=== PATIENT | female | born 1965 | race Caucasian/White ===

== ENCOUNTER 2017-06-19 03:01 | Emergency (ER) | payer MEDICARE ==
[2017-06-19] MEDS ORDERED: Ketorolac INJ* 30 MG/ML 1 ML VIAL ONE (04:14)
[2017-06-19 04:38] LABS: ABS Basophils 0.1 10^3/ul (0-0.2); ABS Eosinophils 0.2 10^3/ul (0-0.6); ABS Lymphocytes 1.7 10^3/ul (1.0-4.8); ABS Monocytes 0.8 10^3/ul (0-0.8); ABS Nucleated RBC 0 10^3/ul; Eosinophil % 2.4 % (0-6); Hematocrit 37 % (35-47); Hemoglobin 12.4 g/dl (12.0-16.0); Lymphocyte % 21.8 % (25-47); Mean Corpuscular HGB Conc 34 g/dl (31-36); Mean Corpuscular Hemoglobin 31 pg (27-31); Mean Corpuscular Volume 92 fL (80-97); Mean Platelet Volume 7.4 um3 (7.4-10.4); Nucleated Red Blood Cells % 0; Platelet Count 357 10^3/ul (150-450); Red Blood Count 3.98 10^6/ul (4.0-5.4); Red Cell Distribution Width 13 % (10.5-15); White Blood Count 7.7 10^3/ul (3.5-10.8)
[2017-06-19] MEDS ORDERED: NS 0.9% 1000 ML* 1,000 ML IV ONE (04:45)
[2017-06-19 04:48] LABS: EGFR Non-African American 95.7 (>60)
[2017-06-19] MEDS ORDERED: Morphine VIAL* 4 MG/ML VIAL (1 ml vial) IV ONE (05:00)
[2017-06-19] MEDS ORDERED: Ketorolac INJ* 30 MG/ML 1 ML VIAL IV ONE (05:00)
--- NOTE | 2017-06-19 05:57 | ED ---
Diane Phan Thomas, scribed for Daniel Garcia MD on 06/19/17 at 0514 . Neck Pain - HPI Summary HPI Summary: The patient is a 52 year old female complaining of neck pain for the last two weeks. The patient describes a pressure sensation that radiates from her neck to her head. She says I can hardly move my neck secondary to the pain. The patient has been taking Advil, ibuprofen, and oxycodone for the pain. The patient also complains of photophobia and dizziness. The patient denies vomiting. She has a history of rheumatoid arthritis that was diagnosed 20 years ago. - History of Current Complaint Chief Complaint: EDHeadache Stated Complaint: NECK INJURY Time Seen by Provider: 06/19/17 04:30 Hx Obtained From: Patient Onset/Duration Of Injury/Symptoms: Days Mechanism Of Injury: No Known Trauma Timing: Constant Onset/Duration: Still Present Severity Currently: Moderate Location: Discrete At: - neck Character: Other: - pressure Aggravating Factors: Movement Alleviating Factors: Nothing Associated Signs & Symptoms: Positive: Negative - vomiting - Allergies/Home Medications Allergies/Adverse Reactions: Allergies Allergy/AdvReac Type Severity Reaction Status Date / Time MS Sulfa Antibiotics Allergy Unknown Verified 10/26/15 17:10 [Sulfa Antibiotics] Reaction Details MS Vancomycin [Vancomycin] Allergy Hives Verified 10/26/15 17:10 PMH/Surg Hx/FS Hx/Imm Hx Endocrine/Hematology History: Reports: Hx Systemic Lupus Erythematosus Denies: Hx Diabetes Cardiovascular History: Denies: Hx Congestive Heart Failure, Hx Hypertension, Hx Pacemaker/ICD Respiratory History: Reports: Hx Asthma - mild seasonal GI History: Reports: Other GI Disorders - CROHN'S DISEASE History: Denies: Hx Dialysis, Hx Renal Disease Musculoskeletal History: Reports: Hx Rheumatoid Arthritis, Other Musculoskeletal History - RA Sensory History: Denies: Hx Hearing Aid Neurological History: 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 Psychiatric History: Denies: Hx Panic Disorder - Cancer History Hx Chemotherapy: No - Surgical History Surgery Procedure, Year, and Place: ovarian cyst, lypomia removal, rheumatoid nodule right foot Infectious Disease History: Denies: Traveled Outside the [place] in Last 30 Days - Family History Known Family History: Negative: Blood Disorder - Social History Lives: With Family Alcohol Use: None Substance Use Type: Reports: None Hx Tobacco Use: No Smoking Status (MU): Unknown if Ever Smoked Review of Systems Positive: Photophobia Negative: Vomiting Positive: Other - Neck pain Neurological: Other - Dizziness All Other Systems Reviewed And Are Negative: Yes Physical Exam - Summary Physical Exam Summary: VITAL SIGNS: Reviewed. GENERAL: Patient is a well-developed and female who is lying comfortable in the stretcher. Patient is not in any acute respiratory distress. HEAD AND FACE: No signs of trauma. No ecchymosis, hematomas or skull depressions. No sinus tenderness. EYES: PERRLA, EOMI x 2, No injected conjunctiva, no nystagmus. EARS: Hearing grossly intact. Ear canals and tympanic membranes are within normal limits. MOUTH: Oropharynx within normal limits. NECK: Supple. She has C-spine tenderness to her upper cervical spine. She has decreased range of motion in both directions. Trachea is midline, no adenopathy , no JVD, no carotid bruit. CHEST: Symmetric, no tenderness at palpation LUNGS: Clear to auscultation bilaterally. No wheezing or crackles. CVS: Regular rate and rhythm, S1 and S2 present, no murmurs or gallops appreciated. ABDOMEN: Soft, non-tender. No signs of distention. No rebound no guarding, and no masses palpated. Bowel sounds are normal. EXTREMITIES: FROM in all major joints, no edema, no cyanosis or clubbing. NEURO: Alert and oriented x 3. No acute neurological deficits. Speech is normal and follows commands. SKIN: Dry and warm Triage Information Reviewed: Yes Vital Signs On Initial Exam: Initial Vitals BP 117/70 06/19/17 03:57 Vital Signs Reviewed: Yes Diagnostics - Vital Signs Vital Signs Pulse BP Pulse Ox 06/19/17 04:32 65 98 06/19/17 03:57 117/70 - Laboratory Lab Results: Lab Results 06/19/17 06/19/17 Range/Units 03:55 03:55 WBC 7.7 (3.5-10.8) 10^3/ul RBC 3.98 L (4.0-5.4) 10^6/ul Hgb 12.4 (12.0-16.0) g/dl Hct 37 (35-47) % MCV 92 (80-97) fL MCH 31 (27-31) pg MCHC 34 (31-36) g/dl RDW 13 (10.5-15) % Plt Count 357 (150-450) 10^3/ul MPV 7.4 (7.4-10.4) um3 Neut % (Auto) 64.6 (38-83) % Lymph % (Auto) 21.8 L (25-47) % [place] % (Auto) 10.4 H (0-7) % Eos % (Auto) 2.4 (0-6) % Baso % (Auto) 0.8 (0-2) % Absolute Neuts (auto) 5.0 (1.5-7.7) 10^3/ul Absolute Lymphs (auto) 1.7 (1.0-4.8) 10^3/ul Absolute Monos (auto) 0.8 (0-0.8) 10^3/ul Absolute Eos (auto) 0.2 (0-0.6) 10^3/ul Absolute Basos (auto) 0.1 (0-0.2) 10^3/ul Absolute Nucleated RBC 0 10^3/ul Nucleated RBC % 0 ESR Pending Sodium 141 (139-145) mmol/L Potassium 3.6 (3.5-5.0) mmol/L Chloride 107 (101-111) mmol/L Carbon Dioxide 28 (22-32) mmol/L Anion Gap 6 (2-11) mmol/L BUN 22 (6-24) mg/dL Creatinine 0.65 (0.51-0.95) mg/dL Est GFR ( Amer) 123.1 (>60) Est GFR (Non-Af Amer) 95.7 (>60) BUN/Creatinine Ratio 33.8 H (8-20) Glucose 98 (70-100) mg/dL Calcium 9.2 (8.6-10.3) mg/dL Total Bilirubin 0.30 (0.2-1.0) mg/dL AST 12 L (13-39) U/L ALT 10 (7-52) U/L Alkaline Phosphatase 50 (34-104) U/L C-Reactive Protein 1.56 (< 5.00) mg/L Total Protein 7.1 (6.4-8.9) g/dL Albumin 4.4 (3.2-5.2) g/dL Globulin 2.7 (2-4) g/dL Albumin/Globulin Ratio 1.6 (1-3) Result Diagrams: 06/19/17 03:55 06/19/17 03:55 Lab Statement: Any lab studies that have been ordered have been reviewed, and results considered in the medical decision making process. - CT CT Cervical Spine CT Interpretation: No Acute Changes - Imperssion: The cervical vertebrae are normally aligned. No fracture or destructive bone lesion. Small disc/osteophyte complexes at C5-6 and C6-7. No other appreciable abnormalities of the cervical spine. Dr. Garcia has reviewed this report. CT Interpretation Completed By: Radiologist CT Head CT Interpretation: No Acute Changes - Impression: normal brain. No acute intracranial pathology. No hemorrhage. No visible infarct or mass. Osseous structures are intact. Dr. Garcia has reviewed this report. CT Interpretation Completed By: Radiologist Neck Course/Dx - Course Assessment/Plan: The patient is a 52 year old female complaining of neck pain for the last two weeks. The patient describes a pressure sensation that radiates from her neck to her head. She says I can hardly move my neck secondary to the pain. The patient was given Toradol, morphine, and IV fluids. Bloodwork was obtained. CT Head shows normal brain. No acute intracranial pathology. No hemorrhage. No visible infarct or mass. Osseous structures are intact. CT Neck shows The cervical vertebrae are normally aligned. No fracture or destructive bone lesion. Small disc/osteophyte complexes at C5-6 and C6-7. No other appreciable abnormalities of the cervical spine. The patient has an appointment with her primary care physician today, so she will be discharged home to follow up at that appointment. - Diagnoses Provider Diagnoses: Headache, Neck pain Discharge - Sign-Out/Discharge Documenting (check all that apply): Discharge - Discharge Plan Condition: Stable Disposition: HOME Patient Education Materials: Neck Pain (ED), General Headache (ED) Referrals: Sidney Alonso MD [Primary Care Provider] - 1 Day Additional Instructions: Follow up with your primary care provider at your appointment today. Return to the emergency department for any new or worsening symptoms. The documentation as recorded by the Diane chaney Thomas accurately reflects the service I personally performed and the decisions made by , Daniel Garcia MD.
[2017-06-19 06:14] VITALS: BP 101/70
--- NOTE | 2017-06-19 08:19 | RAD ---
HISTORY: Headache, neck pain COMPARISONS: August 06, 2011 TECHNIQUE: Multiple contiguous axial CT scans were obtained of the head without intravenous contrast. FINDINGS: HEMORRHAGE/INFARCT: There is no hemorrhage or acute infarct. MASSES/SHIFT: There is no mass or shift. EXTRA-AXIAL SPACES: There are no extra-axial fluid collections. SULCI AND VENTRICLES: The sulci and ventricles are normal in size and position for the patient's stated age. CEREBRUM: There are no focal parenchymal abnormalities. BRAINSTEM: There are no focal parenchymal abnormalities. CEREBELLUM: There are no focal parenchymal abnormalities. VESSELS: The vessels are grossly normal. PARANASAL SINUSES: The paranasal sinuses are clear. ORBITS: The orbits are unremarkable. BONES AND SOFT TISSUE: No bone or soft tissue abnormalities are noted. OTHER: None IMPRESSION: NO ACUTE INTRACRANIAL PATHOLOGY.
--- NOTE | 2017-06-19 08:22 | RAD ---
HISTORY: Headache, neck pain COMPARISONS: CT of the neck dated October 26, 2015 TECHNIQUE: Multiple contiguous axial CT scans were obtained of the cervical spine without intravenous contrast, with coronal and sagittal multiplanar reformations. FINDINGS: BRAIN: The visualized brain is unremarkable CENTRAL CANAL: Evaluation of the central canal is limited on CT technique; however, there is no obvious canalicular mass or epidural hemorrhage. ALIGNMENT: The alignment is normal, without subluxation or dislocation. VERTEBRAL BODIES: The odontoid process is intact. The atlantoaxial intervals are symmetric. The vertebral bodies are normal in attenuation, without fracture. There is mild anterolateral marginal osteophyte formation. JOINTS: There is mild uncovertebral hypertrophy most pronounced at C5-C6 and C6-C7. MUSCULATURE: Unremarkable INTERVERTEBRAL DISCS: There is diffuse loss of intervertebral disc height. AXIAL IMAGES: C2-C3: There is no osseous neural foraminal narrowing or central canal stenosis. C3-C4: There is no osseous neural foraminal narrowing or central canal stenosis. C4-C5: There is no osseous neural foraminal narrowing or central canal stenosis. C5-C6: There is no osseous neural foraminal narrowing or central canal stenosis. C6-C7: There is no osseous neural foraminal narrowing or central canal stenosis. C7-T1: There is no osseous neural foraminal narrowing or central canal stenosis. SOFT TISSUES: The thyroid gland is small and somewhat heterogeneous, with a 0.4 cm nodule of the right thyroid.. The prevertebral fat stripe is preserved. OTHER: None. IMPRESSION: MILD DEGENERATIVE DISC DISEASE AND OSTEOARTHRITIS MOST PRONOUNCED AT C5-C6 AND C6-C7. NO OSSEOUS NEURAL FORAMINAL NARROWING OR CENTRAL CANAL STENOSIS.
== END 2017-06-19 06:15 | disposition home or self-care (01) ==
LOC: ED 03:01
DX: R51 Headache (principal); M54.2 Cervicalgia; H53.149 Visual discomfort, unspecified; R42 Dizziness and giddiness
CPT/HCPCS: 36415; 70450; 72125; 80053; 85025; 85652; 86140; 96374; 96375; 99282; J1885

== ENCOUNTER 2017-07-20 23:08 | Emergency (ER) | payer MEDICARE ==
[2017-07-20] MEDS ORDERED: Famotidine TAB* 20 MG PO ONE (23:42)
[2017-07-20] MEDS ORDERED: predniSONE TAB* 20 MG PO ONE (23:42)
[2017-07-20] MEDS ORDERED: diPHENhydraMINE PO* 50 MG PO ONE (23:42)
[2017-07-20] MEDS ORDERED: diPHENhydraMINE IV* 50 MG/ML 1 ml VIAL (BENADRYL) IV ONE (23:47)
[2017-07-20] MEDS ORDERED: methylPREDNISolone 125 MG* 2 ML VIAL IV ONE (23:47)
[2017-07-20] MEDS ORDERED: Famotidine IV* 10 MG/ML 2 ML (20 mg) IV ONE (23:47)
[2017-07-20] MEDS ORDERED: Famotidine IV* 10 MG/ML 2 ML (20 mg) IV SLOW PU ONE (23:47)
--- NOTE | 2017-07-21 00:24 | ED ---
Allergic Reaction/Systemic - HPI Summary HPI Summary: Complains of possible allergic reaction x 1 hr, with reaction to unknown trigger with symptoms of itching and burning rash to bilateral arms, chest, face and neck, with trouble swallowing and speaking, and dry cough. Denies active trouble swallowing, shortness of breath, trouble speaking here in the ED. States feeling of swollen throat has resolved, but itching rashes progressing. Unknown trigger with shrimp or Voltaren gel, patient has had both before without reaction. Medical history is lupus, RA, Crohn's. Denies fever, CP, N/V/D, abdomen pain, change in urinary BM. - History of Current Complaint Chief Complaint: EDAllergicReaction Time Seen by Provider: 07/20/17 23:37 Hx Obtained From: Patient Onset/Duration: Sudden Onset Timing: Constant, Lasting Minutes Severity Currently: Mild Pain Intensity: 0 Pain Scale Used: 0-10 Numeric Location: Diffuse Character: Pruritus, Hives Associated Signs And Symptoms: Positive: Rash, Throat Tightening - Related Hx Possible Reaction To: Unknown - Allergies/Home Medications Allergies/Adverse Reactions: Allergies Allergy/AdvReac Type Severity Reaction Status Date / Time Sulfa (Sulfonamide AdvReac Unknown Verified 07/20/17 23:17 Antibiotics) Reaction Details vancomycin AdvReac Hives Verified 07/20/17 23:17 PMH/Surg Hx/FS Hx/Imm Hx Endocrine/Hematology History: Reports: Hx Systemic Lupus Erythematosus Denies: Hx Diabetes Cardiovascular History: Denies: Hx Congestive Heart Failure, Hx Hypertension, Hx Pacemaker/ICD Respiratory History: Reports: Hx Asthma - mild seasonal GI History: Reports: Other GI Disorders - CROHN'S DISEASE History: Denies: Hx Dialysis, Hx Renal Disease Musculoskeletal History: Reports: Hx Rheumatoid Arthritis, Other Musculoskeletal History - RA Sensory History: Denies: Hx Hearing Aid Neurological History: 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 Psychiatric History: Denies: Hx Panic Disorder - Cancer History Hx Chemotherapy: No - Surgical History Surgery Procedure, Year, and Place: ovarian cyst, lypomia removal, rheumatoid nodule right foot Infectious Disease History: No Infectious Disease History: Denies: Traveled Outside the [place] in Last 30 Days - Family History Known Family History: Negative: Blood Disorder - Social History Alcohol Use: None Substance Use Type: Reports: None Hx Tobacco Use: No Smoking Status (MU): Unknown if Ever Smoked Review of Systems Constitutional: Negative Eyes: Negative ENT: Negative Cardiovascular: Negative Positive: Shortness Of Breath, Cough Genitourinary: Negative Musculoskeletal: Negative Positive: Rash Neurological: Negative Psychological: Normal All Other Systems Reviewed And Are Negative: Yes Physical Exam Triage Information Reviewed: Yes Vital Signs On Initial Exam: Initial Vitals Temp Pulse Resp BP Pulse Ox 97.7 F 85 20 179/85 100 07/20/17 23:13 07/20/17 23:13 07/20/17 23:13 07/20/17 23:13 07/20/17 23:13 Vital Signs Reviewed: Yes Appearance: Positive: Well-Appearing Skin: Positive: Warm Head/Face: Positive: Normal Head/Face Inspection Eyes: Positive: Normal ENT: Positive: Normal ENT inspection Neck: Positive: Supple Respiratory/Lung Sounds: Positive: Clear to Auscultation Cardiovascular: Positive: Normal Abdomen Description: Positive: Nontender Musculoskeletal: Positive: Normal Neurological: Positive: Normal Psychiatric: Positive: Normal AVPU Assessment: Alert - Edwardo Coma Scale Best Eye Response: 4 - Spontaneous Best Motor Response: 6 - Obeys Commands Best Verbal Response: 5 - Oriented Coma Scale Total: 15 Diagnostics - Vital Signs Vital Signs Temp Pulse Resp BP Pulse Ox 07/20/17 23:37 73 138/74 100 07/20/17 23:13 97.7 F 85 20 179/85 100 - Laboratory Lab Statement: Any lab studies that have been ordered have been reviewed, and results considered in the medical decision making process. Re-Evaluation - Re-Evaluation 1 Re-Evaluation Time: 00:25 Comment: Patient states throat symptoms have resolved. And rash has significantly improved with much less itching and irritation. No SOB, states she is ready to go home. Allergic Reaction Course/Dx - Course Course Of Treatment: Possible allergic reaction to unknown trigger with symptoms of throat swelling, rash, hives. Throat swelling symptoms resolved prior to exam. Rash and itching has significantly improved with Benadryl steroids. Patient will be given a prescription for EpiPen, and prednisone. Also requests prescription for inhaler. Follow-up with primary care - Diagnoses Provider Diagnoses: Allergic reaction Discharge - Sign-Out/Discharge Documenting (check all that apply): Discharge/Admit/Transfer - Discharge Plan Condition: Stable Disposition: HOME Patient Education Materials: Urticaria (ED), Allergies (ED), General Allergic Reaction (ED) Referrals: Sidney Alonso MD [Primary Care Provider] - Additional Instructions: Follow-up with primary care. Return to the ED for any new or worsening symptoms - Billing Disposition and Condition Condition: STABLE Disposition: HOME
[2017-07-21 01:03] VITALS: BP 140/74
== END 2017-07-21 01:03 | disposition home or self-care (01) ==
LOC: ED 23:08
DX: R21 Rash and other nonspecific skin eruption (principal); R09.89 Other specified symptoms and signs involving the circulatory and respiratory systems; T78.40XA Allergy, unspecified, initial encounter; X58.XXXA Exposure to other specified factors, initial encounter; M32.9 Systemic lupus erythematosus, unspecified; J45.909 Unspecified asthma, uncomplicated; K50.90 Crohn's disease, unspecified, without complications; Z88.1 Allergy status to other antibiotic agents; Z88.2 Allergy status to sulfonamides
CPT/HCPCS: 96374; 96375; 99283; J1200; J2930

== ENCOUNTER 2018-09-13 15:08 | Emergency (ER) | payer MEDICARE ==
[2018-09-13] MEDS ORDERED: NS 0.9% 1000 ML** 1,000 ML IV ONE (16:46)
[2018-09-13 17:15] LABS: ABS Basophils 0.1 10^3/ul (0-0.2); ABS Eosinophils 0.2 10^3/ul (0-0.6); ABS Lymphocytes 1.4 10^3/ul (1.0-4.8); ABS Monocytes 0.5 10^3/ul (0-0.8); ABS Neutrophils 4.6 10^3/ul (1.5-7.7); Eosinophil % 2.7 %; Hematocrit 38 % (35-47); Hemoglobin 12.5 g/dL (12.0-16.0); Lymphocyte % 20.4 %; Mean Corpuscular HGB Conc 33 g/dL (31-36); Mean Corpuscular Hemoglobin 30 pg (27-31); Mean Corpuscular Volume 92 fL (80-97); Platelet Count 288 10^3/uL (150-450); Red Blood Count 4.17 10^6 /uL (3.70-4.87); Red Cell Distribution Width 14 % (10-15); White Blood Count 6.6 10^3/uL (3.5-10.8)
[2018-09-13 17:35] LABS: Albumin 4.6 g/dL (3.2-5.2); Albumin/Globulin Ratio 1.7 (1-3); BUN/Creatinine Ratio 19.1 (8-20); C Reactive Protein 1.7 mg/L (<8.01); Calcium 9.8 mg/dL (8.6-10.3); EGFR African American 109.5 (>60); EGFR Non-African American 90.5 (>60); Globulin 2.7 g/dL (2-4); Potassium 4.2 mmol/L (3.5-5.0); Total Bilirubin 0.4 mg/dL (0.2-1.0); Total Protein 7.3 g/dL (6.4-8.9)
[2018-09-13 19:33] LABS: Urine Appearance Clear; Urine Bacteria Absent (Absent); Urine Bilirubin Negative (Negative); Urine Blood 1+ (Negative); Urine Color Straw; Urine Glucose Negative (Negative); Urine Ketones Negative (Negative); Urine Nitrite Negative (Negative); Urine Protein Negative (Negative); Urine Red Blood Cell Trace(0-2/hpf) (Absent); Urine Specific Gravity 1.005 (1.010-1.030); Urine Squamous Epithelial Cell Present (Absent); Urine Urobilinogen Negative (Negative); Urine White Blood Cell Trace(0-5/hpf) (Absent)
--- NOTE | 2018-09-13 23:15 | ED ---
Abdominal Pain/Female - HPI Summary HPI Summary: Patient presents with a lateral lower abdominal pain, low back pain, dyspareunia , inability to insert tampon, increased urinary frequency and decreased urinary output times weeks. Denies fever, sore throat, NELSON, neck stiffness, CP, SOB, N/V /D, change in BM, vaginal discharge, vaginal bleed. Patient has history of recent ulcer, recently treated for H. pylori. Also history of recent kidney infection currently taking Keflex 5 days. Patient also diagnosed with partially prolapsed bladder last week at urgent care by pelvic exam. Patient patient states she has an appointment tomorrow with ENT Dr. Zulema Velez for chronic cough evaluation. [facility] and for routine pelvic exam. Patient also has appointment next week with urology for further evaluation of possible prolapsed bladder. Medical history is Crohn's, ulcers, lupus, RA. Patient followed by GI Dr. Gomez for Crohn's and ulcers. Recent endoscopy and colonoscopy in June. - History of Current Complaint Chief Complaint: EDUrogenitalProblems Stated Complaint: ABD PAIN, TROUBLE URINATING PER PT Time Seen by Provider: 09/13/18 17:48 Hx Obtained From: Patient Onset/Duration: Gradual Onset, Lasting Weeks Timing: Constant Severity Initially: Moderate Severity Currently: Moderate Pain Intensity: 7 Pain Scale Used: 0-10 Numeric Location: Discrete At: RLQ, Discrete At: LLQ, Suprapubic Radiates to: Back Character: Cramping Aggravating Factor(s): Nothing Alleviating Factor(s): Nothing Associated Signs and Symptoms: Positive: Back Pain, Urinary Symptoms Allergies/Adverse Reactions: Allergies Allergy/AdvReac Type Severity Reaction Status Date / Time levofloxacin [From Levaquin] Allergy Anaphylatic Verified 09/13/18 15:19 Shock omeprazole Allergy Anaphylatic Verified 09/13/18 15:19 Shock vancomycin AdvReac Hives Verified 08/27/18 14:33 PMH/Surg Hx/FS Hx/Imm Hx Endocrine/Hematology History: Reports: Hx Blood Disorders - mild von willebrands , Hx Systemic Lupus Erythematosus Denies: Hx Diabetes Cardiovascular History: Denies: Hx Congestive Heart Failure, Hx Hypertension, Hx Pacemaker/ICD Respiratory History: Reports: Hx Asthma - mild seasonal, Hx Sleep Apnea GI History: Reports: Hx Crohn's Disease, Other GI Disorders - CROHN'S DISEASE History: Denies: Hx Dialysis, Hx Renal Disease Musculoskeletal History: Reports: Hx Arthritis, Hx Rheumatoid Arthritis, Other Musculoskeletal History - RA Sensory History: Denies: Hx Hearing Aid Neurological History: 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 Psychiatric History: Denies: Hx Panic Disorder - Cancer History Hx Chemotherapy: No - Surgical History Surgery Procedure, Year, and Place: ovarian cyst, lypomia removal, rheumatoid nodule right foot. BILATERAL CARPAL TUNNEL. 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 per pt Denies: Traveled Outside the [place] in Last 30 Days - Family History Known Family History: Negative: Blood Disorder - Social History Alcohol Use: None Alcohol Amount: 2-3 drinks/year Substance Use Type: Reports: None Hx Tobacco Use: No Smoking Status (MU): Never Smoked Tobacco Review of Systems Constitutional: Negative Eyes: Negative ENT: Negative Cardiovascular: Negative Positive: Cough Positive: Abdominal Pain Positive: dysuria, frequency, urgency Musculoskeletal: Negative Skin: Negative Neurological: Negative Psychological: Normal All Other Systems Reviewed And Are Negative: Yes Physical Exam - Summary Physical Exam Summary: Abdomen mildly tender bilateral lower quadrants and suprapubically. Abdominal exam otherwise unremarkable. Patient refused pelvic exam. Lung sounds clear to auscultation bilaterally. No CVA tenderness bilaterally. No tenderness to palpation of lower back. Triage Information Reviewed: Yes Vital Signs On Initial Exam: Initial Vitals Temp Pulse Resp BP Pulse Ox 96.8 F 88 16 142/94 99 09/13/18 15:12 09/13/18 15:12 09/13/18 15:12 09/13/18 15:12 09/13/18 15:12 Vital Signs Reviewed: Yes Appearance: Positive: Well-Appearing Skin: Positive: Warm Head/Face: Positive: Normal Head/Face Inspection Eyes: Positive: Normal Neck: Positive: Supple Respiratory/Lung Sounds: Positive: Clear to Auscultation Cardiovascular: Positive: Normal Abdomen Description: Positive: Other: Musculoskeletal: Positive: Normal Neurological: Positive: Normal Psychiatric: Positive: Normal AVPU Assessment: Alert - [place] Coma Scale Best Eye Response: 4 - Spontaneous Best Motor Response: 6 - Obeys Commands Best Verbal Response: 5 - Oriented Coma Scale Total: 15 Diagnostics - Vital Signs Vital Signs Temp Pulse Resp BP Pulse Ox 09/13/18 22:00 62 15 120/81 100 09/13/18 20:20 63 131/84 97 09/13/18 20:09 60 100 09/13/18 20:08 65 16 119/82 99 09/13/18 20:07 66 119/82 100 09/13/18 17:08 65 100 09/13/18 16:50 72 124/73 97 09/13/18 15:12 96.8 F 88 16 142/94 99 - Laboratory Lab Results: Lab Results 09/13/18 09/13/18 09/13/18 Range/Units 17:07 17:07 17:07 WBC 6.6 (3.5-10.8) 10^3/uL RBC 4.17 (3.70-4.87) 10^6 /uL Hgb 12.5 (12.0-16.0) g/dL Hct 38 (35-47) % MCV 92 (80-97) fL MCH 30 (27-31) pg MCHC 33 (31-36) g/dL RDW 14 (10-15) % Plt Count 288 (150-450) 10^3/uL MPV 7.0 L (7.4-10.4) fL Neut % (Auto) 69.1 % Lymph % (Auto) 20.4 % [place] % (Auto) 6.8 % Eos % (Auto) 2.7 % Baso % (Auto) 1.0 % Absolute Neuts (auto) 4.6 (1.5-7.7) 10^3/ul Absolute Lymphs (auto) 1.4 (1.0-4.8) 10^3/ul Absolute Monos (auto) 0.5 (0-0.8) 10^3/ul Absolute Eos (auto) 0.2 (0-0.6) 10^3/ul Absolute Basos (auto) 0.1 (0-0.2) 10^3/ul Absolute Nucleated RBC 0.0 10^3/ul Nucleated RBC % 0.0 Sodium 138 (135-145) mmol/L Potassium 4.2 (3.5-5.0) mmol/L Chloride 104 (101-111) mmol/L Carbon Dioxide 28 (22-32) mmol/L Anion Gap 6 (2-11) mmol/L BUN 13 (6-24) mg/dL Creatinine 0.68 (0.51-0.95) mg/dL Est GFR ( Amer) 109.5 (>60) Est GFR (Non-Af Amer) 90.5 (>60) BUN/Creatinine Ratio 19.1 (8-20) Glucose 89 (70-100) mg/dL Lactic Acid 0.7 (0.5-2.0) mmol/L Calcium 9.8 (8.6-10.3) mg/dL Total Bilirubin 0.40 (0.2-1.0) mg/dL AST 21 (13-39) U/L ALT 23 (7-52) U/L Alkaline Phosphatase 57 (34-104) U/L C-Reactive Protein 1.70 (<8.01) mg/L Total Protein 7.3 (6.4-8.9) g/dL Albumin 4.6 (3.2-5.2) g/dL Globulin 2.7 (2-4) g/dL Albumin/Globulin Ratio 1.7 (1-3) Amylase 102 (29-103) U/L Lipase 25 (11.0-82.0) U/L Urine Color Urine Appearance Urine pH (5-9) Ur Specific [place] (1.010-1.030) Urine Protein (Negative) Urine Ketones (Negative) Urine Blood (Negative) Urine Nitrate (Negative) Urine Bilirubin (Negative) Urine Urobilinogen (Negative) Ur Leukocyte Esterase (Negative) Urine WBC (Auto) (Absent) Urine RBC (Auto) (Absent) Ur Squamous Epith Cells (Absent) Urine Bacteria (Absent) Urine Glucose (Negative) 09/13/18 Range/Units 19:14 WBC (3.5-10.8) 10^3/uL RBC (3.70-4.87) 10^6 /uL Hgb (12.0-16.0) g/dL Hct (35-47) % MCV (80-97) fL MCH (27-31) pg MCHC (31-36) g/dL RDW (10-15) % Plt Count (150-450) 10^3/uL MPV (7.4-10.4) fL Neut % (Auto) % Lymph % (Auto) % [place] % (Auto) % Eos % (Auto) % Baso % (Auto) % Absolute Neuts (auto) (1.5-7.7) 10^3/ul Absolute Lymphs (auto) (1.0-4.8) 10^3/ul Absolute Monos (auto) (0-0.8) 10^3/ul Absolute Eos (auto) (0-0.6) 10^3/ul Absolute Basos (auto) (0-0.2) 10^3/ul Absolute Nucleated RBC 10^3/ul Nucleated RBC % Sodium (135-145) mmol/L Potassium (3.5-5.0) mmol/L Chloride (101-111) mmol/L Carbon Dioxide (22-32) mmol/L Anion Gap (2-11) mmol/L BUN (6-24) mg/dL Creatinine (0.51-0.95) mg/dL Est GFR ( Amer) (>60) Est GFR (Non-Af Amer) (>60) BUN/Creatinine Ratio (8-20) Glucose (70-100) mg/dL Lactic Acid (0.5-2.0) mmol/L Calcium (8.6-10.3) mg/dL Total Bilirubin (0.2-1.0) mg/dL AST (13-39) U/L ALT (7-52) U/L Alkaline Phosphatase (34-104) U/L C-Reactive Protein (<8.01) mg/L Total Protein (6.4-8.9) g/dL Albumin (3.2-5.2) g/dL Globulin (2-4) g/dL Albumin/Globulin Ratio (1-3) Amylase (29-103) U/L Lipase (11.0-82.0) U/L Urine Color Straw Urine Appearance Clear Urine pH 7.0 (5-9) Ur Specific [place] 1.005 L (1.010-1.030) Urine Protein Negative (Negative) Urine Ketones Negative (Negative) Urine Blood 1+ A (Negative) Urine Nitrate Negative (Negative) Urine Bilirubin Negative (Negative) Urine Urobilinogen Negative (Negative) Ur Leukocyte Esterase Negative (Negative) Urine WBC (Auto) Trace(0-5/hpf) (Absent) Urine RBC (Auto) Trace(0-2/hpf) (Absent) Ur Squamous Epith Cells Present A (Absent) Urine Bacteria Absent (Absent) Urine Glucose Negative (Negative) Result Diagrams: 09/13/18 17:07 07/14/19 17:07 Lab Statement: Any lab studies that have been ordered have been reviewed, and results considered in the medical decision making process. Abdominal Pain Fem Course/Dx - Course Course Of Treatment: Patient presents with a lateral lower abdominal pain, low back pain, dyspareunia, inability to insert tampon, increased urinary frequency and decreased urinary output times weeks. Denies fever, sore throat, NELSON, neck stiffness, CP, SOB, N/V/D, change in BM, vaginal discharge, vaginal bleed. Patient has history of recent ulcer, recently treated for H. pylori. Also history of recent kidney infection currently taking Keflex 5 days. Patient also diagnosed with partially prolapsed bladder last week at urgent care by pelvic exam. Patient patient states she has an appointment tomorrow with ENT Dr. Zulema Velez for chronic cough evaluation. [facility] and for routine pelvic exam. Patient also has appointment next week with urology for further evaluation of possible prolapsed bladder. Medical history is Crohn's, ulcers, lupus, RA. Patient followed by GI Dr. Gomez for Crohn's and ulcers. Recent endoscopy and colonoscopy in June. Vital signs within normal limits. Labs unremarkable. Pelvic ultrasound negative, with normal bladder. Patient deferred pelvic exam and CAT scan at this time. States she has [facility] with [facility] and [facility] pending. Rx for pain control. - Diagnoses Provider Diagnoses: Pelvic pain, Dyspareunia, Dysuria Discharge - Sign-Out/Discharge Documenting (check all that apply): Patient Departure Patient Received Moderate/Deep Sedation with Procedure: No - Discharge Plan Condition: Stable Disposition: HOME Prescriptions: Oxycodone HCl 5 mg PO TID 2 Days #6 tablet MDD 4 tabs Patient Education Materials: Pelvic Pain in Women (ED), Dysuria (ED) Referrals: Sidney Alonso MD [Primary Care Provider] - Additional Instructions: [facility] at [facility]. Call your urologist tomorrow morning to arrange appointment for further evaluation of difficulty urinating and pelvic pain. Return to the ED for any new or worsening symptoms. - Billing Disposition and Condition Condition: STABLE Disposition: Home
[2018-09-14] MEDS ORDERED: oxyCODONE TAB* 5 MG TAB PO ONE (00:23)
[2018-09-14 00:38] VITALS: BP 129/75
== END 2018-09-14 00:37 | disposition home or self-care (01) ==
LOC: ED 15:08
DX: N94.10 Unspecified dyspareunia (principal); R30.0 Dysuria; R10.2 Pelvic and perineal pain; Z88.1 Allergy status to other antibiotic agents; Z88.8 Allergy status to other drugs, medicaments and biological substances; D68.0 Von Willebrand disease; M32.9 Systemic lupus erythematosus, unspecified; J45.909 Unspecified asthma, uncomplicated; K50.90 Crohn's disease, unspecified, without complications; M06.9 Rheumatoid arthritis, unspecified; Z97.5 Presence of (intrauterine) contraceptive device
CPT/HCPCS: 36415; 76856; 80053; 81003; 81015; 82150; 83605; 83690; 85025; 86140; 87086; 96360; 99283

== ENCOUNTER 2018-09-27 21:37 | Emergency (ER) | payer MEDICARE ==
--- OUTSIDE RECORDS SUMMARY | 2018-09-27 21:48 | XMS REPORT | Continuity of Care Document ---
:1965 Author Organization [facility] Address [address], [place] [id number] Phone Care Team Providers Name Role Phone Danyelle England Unavailable Unavailable Allergies, Adverse Reactions, Alerts Substance Reaction Status latex Unknown Active Sulfa (Sulfonamide Antibiotics) Active vancomycin Active Medications Medication Instructions Dosage Effective Status Comments Dates (start - stop) HYDROXYCHLOROQUINE take 1 tablet by Not Available - Active SULFATE (unknown oral route every strength) day MELOXICAM (unknown take 5 milliliter Not Available - Active strength) by oral route every day PROBIOTIC (unknown Not Available - Active strength) OMEGA-3 (unknown Not Available - Active strength) Problems Condition Effective Dates (start - Clinical Status Comments stop) 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 Other Leak Gang Supervisor.Svc. STI SUREPATH HPV, DNA, AMP PROBE HIGH RISK REMOVE INTRAUTERINE DEVICE Tray Fee PREV VISIT, NEW, AGE 40-64 Results Test Name Date and Time Measure Units Reference Range Abnormal Flag Status Comments No information Advance Directives Directive Yes / No Effective Date File Name No information Encounters Encounter Practice Location Reason(s) Diagnoses Date Provider Providers Description For Visit Copied on Encounter PREV VISIT, [facility] Encntr for staffing program manager Thaddeus Referring NEW, [facility] [place] Person exam (general) 6 Danyelle. Provider: 40-64 [facility] Visit (routine) w [address] (chief abnormal [place], [address], [address]) [address], [place] for removal of [place], St, [place], [place], [place]ine [place], [place], contraceptive [address]. [place], [address]. [id number], device tel:+60 tel:[phone] US [phone] tel:[phone] [facility] Jan- [facility] [place] [facility] [address] [place], [address], [address] [place], St, [place], [place], [address]. [id number], tel:[phone] [place] [phone] tel:[phone] [facility] Oct- [facility] [place]. [facility] [address] [place], [address], [address] [place], St, [place], [place], [address]. 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 Provider: [facility] [address] [place] J[place]oti R, [facility], [address], [address] [place], [place] [address], [address], [place], [place], [place], [address]. [place], [address]. [id number], tel:+60 tel:[phone] US [phone] tel:[phone] Family History Family Member Diagnosis Age At Onset Paternal grandmother Rheumatoid arthritis Paternal grandfather Heart disease Maternal grandmother Cancer, breast Father Hypertension Maternal grandfather Diabetes mellitus Mother Thyroid disorder Sister Lupus erythematosus Father High cholesterol Paternal grandmother Alzheimer's disease Maternal grandfather Blood clots, lung (Cause Of ) Immunizations Vaccine Date Status Comments measles, mumps and rubella administered Note: per [facility] 2011 ; virus vaccine Source: Source Unspecified Hep A and Hep B administered Note: per [facility] 10/2011 ; Source: Source Unspecified Payers Payer name Insurance type Covered democrat ID Authorization(s) Medicare MB [id number] Social History Type Description Quantity Date Captured Comments Alcohol Use Details Unknown Caffeine Use Details Unknown Tobacco Use Status Never smoked tobacco Smoking Status Never smoker Non-Smoking Tobacco : No Details Available : No Details Available 2018 Use Details Sex Female Vital Signs Date / Height Weight BMI Pulse Blood Temperature Respiratory Body Head BMI Pulse Inhaled Time: Rate Pressure Rate Surface Circumference percentile Ox Ox Area 68.00 145.00 22.0 128/ in lbs 5 mm[Hg] 3:40 kg/m PM eter (2) Chief Complaint And Reason For Visit Most recent encounter only, dated '09/15/2018 15:10'. Well Person Visit ( chief complaint) Reason For Referral Reason For Referral No information Plan Of Treatment Date Type Action Status No information History Of Present Illness Encounter Date Complaint History Of Present Illness No information Functional Status Date Functional Assessment No information Medications Administered Medication Instructions Dosage Effective Dates (start - stop) Status Comments No information Instructions Date Instruction Additional Information No information Assessments Type Assessment Date assessment Encntr for staffing program manager exam (general) (routine) w abnormal findings assessment Encounter for removal of intrauterine contraceptive device 2018 Goals Health Concern Goal Type Priority Status Date No information Medical Equipment Description Device [place]ford Device Identifier Effective Dates (start - stop ) Status No information Mental Status Date Cognitive Assessment Normal Orientation Health Concerns Observation Date No information Concern Status Date No information
--- OUTSIDE RECORDS SUMMARY | 2018-09-27 21:48 | XMS REPORT | Continuity of Care Document ---
:1965 External Reference #:[id number] Author Name Juvenal Yan DO Address [address] [place] [address] Care Team Providers Name Role Phone Sidney Alonso MD Care Team Information Manager Wellness Unavailable Sidney Alonso MD Primary Care Physician Unavailable Payers Date Identification Numbers Payment Provider Subscriber Policy Number: [id number] Medicare Nakia Tay PayID: [id number] [facility] [address] [place] [address] Expires: 2013 Policy Number: [id number] Medicaid/Medicare Nakia Tay Group Name: 2 1 [facility] [employer] GP PayID: [id number] [address] [place] [address] Problems Active Problems Provider Date Crohn's disease Joseph Orozco MD Onset: 10/16/2011 Systemic lupus erythematosus Joseph Orozco MD Onset: 10/16/2011 Gastroesophageal reflux disease Joseph Orozco MD Onset: 10/16/2011 Social History Type Date Description Comments Sex Unknown Tobacco Use Start: Unknown Patient has never smoked Smoking Status Reviewed: 08/28/18 Patient has never smoked Allergies, Adverse Reactions, Alerts Active Allergies Reaction Severity Comments Date Sulfa Antibiotics 10/16/2011 Vancomycin 10/16/2011 IV Contrast 10/16/2011 Medications Active Medications SIG Qnty Indications Ordering Date Provider Colyte With Flavor Packs by mouth as 4000ml Juvenal Yan, 08/28/2018 240gm directed DO Solution Rec Hydroxychloroquine Sidney Alonso, Sulfate 200mg Tablets Ventolin HFA prn Unknown 108(90Base) mcg/Act Aerosol Meloxicam prn Unknown 7.5mg Tablets Epipen 2-Arnie use as directed Unknown 0.3mg/0.3ML Solution Auto-Inject Vital Signs Date Vital Result Comment 08/28/2018 3:09pm Height 68 inches 5'8" Weight 144.00 lb BP Systolic 131 mmHg BP Diastolic 93 mmHg Heart Rate 76 /min BMI (Body Mass Index) 21.9 kg/m2 07/22/2013 2:37pm Height 68 inches 5'8" Weight 154.00 lb BP Systolic 122 mmHg BP Diastolic 80 mmHg Heart Rate 72 /min BMI (Body Mass Index) 23.4 kg/m2 10/16/2011 3:40pm Height 68 inches 5'8" Weight 156.00 lb BP Systolic 110 mmHg BP Diastolic 70 mmHg Heart Rate 78 /min BMI (Body Mass Index) 23.7 kg/m2 Results Test Date Facility Test Result H/L Range Note CBC Auto Diff 08/28/2018 [facility] White Blood Count 7.9 10^3/uL N 3.5-10.8 Red Blood Count 4.34 10^6/uL N 3.70-4.87 Hemoglobin 13.4 g/dL N 12.0-16.0 Hematocrit 39 % N 35-47 Mean Corpuscular Volume 91 fL N 80-97 Mean Corpuscular Hemoglobin 31 pg N 27-31 Mean Corpuscular HGB Conc 34 g/dL N 31-36 Red Cell Distribution Width 14 % N 10-15 Platelet Count 340 10^3/uL N 150-450 Mean Platelet Volume 7.7 fL N 7.4-10.4 Abs Neutrophils 5.5 10^3/uL N 1.5-7.7 Abs Lymphocytes 1.6 10^3/uL N 1.0-4.8 Abs Monocytes 0.6 10^3/uL N 0-0.8 Abs Eosinophils 0.2 10^3/uL N 0-0.6 Abs Basophils 0.0 10^3/uL N 0-0.2 Abs Nucleated RBC 0.0 10^3/uL Granulocyte % 69.2 % Lymphocyte % 20.4 % Monocyte % 7.8 % Eosinophil % 2.0 % Basophil % 0.6 % Nucleated Red Blood Cells % 0.1 Comp Metabolic Panel 08/28/2018 [facility] Sodium 139 mmol/L N 135-145 Potassium 5.0 mmol/L N 3.5-5.0 Chloride 104 mmol/L N 101-111 Co2 Carbon Dioxide 28 mmol/L N 22-32 Anion Gap 7 mmol/L N 2-11 Glucose 96 mg/dL N 70-100 Blood Urea Nitrogen 13 mg/dL N 6-24 Creatinine 0.67 mg/dL N 0.51-0.95 BUN/Creatinine Ratio 19.4 N 8-20 Calcium 10.3 mg/dL N 8.6-10.3 Total Protein 7.5 g/dL N 6.4-8.9 Albumin 4.8 g/dL N 3.2-5.2 Globulin 2.7 g/dL N 2-4 Albumin/Globulin Ratio 1.8 N 1-3 Total Bilirubin 0.30 mg/dL N 0.2-1.0 Alkaline Phosphatase 56 U/L N 34-104 Alt 15 U/L N 7-52 Ast 16 U/L N 13-39 Egfr Non- 92.1 >60 Egfr 111.4 >60 1 Laboratory test finding 08/28/2018 [facility] Erythrocyte Sed Rate 10 mm/Hr N 0- 29 2 C Reactive Protein 1.87 mg/L N <8.01 3 Surgical 08/23/2013 [facility] S RUN DATE: Pathology 08/24/ <SEE NOTE> CBC W/Auto 07/22/2013 [facility] White Blood 17.9 3/UL High 4.8-10 Differential(!) [address] Count Ser .8 [place] [address] Auto CNT [phone] RBC Red Blood Count 3.87 X106/UL Low 4.20-6.20 Hemoglobin Blood 11.5 g/dL Low 12.0-18.0 Hematocrit 35.2 % 35-52 MCV (Corpuscular Volume) 91.0 FL 79-97 MCH (Corpuscular Hemoglobin) 29.7 pg 27-31 MCHC (Corpuscular Hemog Conc) 32.7 g/dL 32.0-36.0 RDW 14.1 % 10.5-15.0 Platelet Count Blood Auto CNT 324 X103/UL 150-450 MPV 6.5 FL Low 7.4-10.4 Lymph% 10.1 % Low 20.0-45.0 Winkler% 3.3 % 1.0-9.0 Neutrophil % 86.6 % High 38.0-83.0 Absolute Lymphocytes 1.8 X103/UL 1.0-4.8 Absolute Monocytes 0.6 X103/UL 0.0-0.8 Absolute Neutrophils 15.5 X103/UL High 1.5-7.7 Laboratory test 07/22/2013 [facility] Ferritin 32 ng/dL 24-250 finding [address] Ser/[place] [address] Mass/Vol() [phone] Laboratory test 07/22/2013 [facility] Vitamin B12 287 pg/mL N 180-914 4 finding CBC W/Auto 10/10/2011 [facility] White Blood 7.1 3/UL 4.8-10.8 Differential(!) [address] [address] CNT [phone] Lymph% 27.3 % 20.0-45.0 [place]inkler% 5.1 % 1.0-9.0 Granulocyte Percentage 67.6 % 38.0-83.0 Lymph# 1.9 1.0-4.8 Winkler# 0.4 0.0-0.8 Absolute Granulocyte 4.8 1.5-7.7 RBC Red Blood Count 4.09 X106/UL Low 4.20-6.20 Hemoglobin Blood 13.2 g/dL 12.0-18.0 Hematocrit 37.6 % 35-52 MCV (Corpuscular Volume) 91.9 FL 79-97 MCH (Corpuscular Hemoglobin) 32.2 pg High 27-31 MCHC (Corpuscular Hemog Conc) 35.1 g/dL 32.0-36.0 RDW 12.6 % 10.5-15.0 Platelet Count Blood Auto CNT 309 X103/UL 150-450 MPV 6.6 FL Low 7.4-10.4 Laboratory test 10/10/2011 [facility] Esr Sedimentation 16 MM 0-20 finding [address] Rate(!) [place] [address] [phone] Laboratory test 10/10/2011 [facility] C Reactive Protein < 0.5 Less Than finding mg/dL 0.5 1 Because ethnic data is not always readily available, this report includes an eGFR for both -Americans and non- Americans. The National Kidney Disease Education Program (NKDEP) does not endorse the use of the MDRD equation for patients that are not between the ages of 18 and 70, are , have extremes of body size, muscle mass, or nutritional status, or are non- or non-. According to the National Kidney Foundation, irrespective of diagnosis, the stage of the disease is based on the level of kidney function: Stage Description GFR(mL/min/1.73 m(2)) 1 Kidney damage with normal or decreased GFR 90 2 Kidney damage with mild decrease in GFR 60-89 3 Moderate decrease in GFR 30-59 4 Severe decrease in GFR 15-29 5 Kidney failure <15 (or dialysis) 2 [id number] 3 [id number] 4 Normal Range 180 to 914 Indeterminate Range 145 to 180 Deficient Range <145 Procedures Date Code Description Status 08/23/2013 73676 Colonoscopy W/ Snare RM Of Polyp/Tumor/Lesion Completed 02/01/2009 72730 Colonscopy+Biopsy Completed Encounters Type Date Location Provider Dx Diagnosis Office Visit 07/22/2013 [facility] Cao 555.9 Crohn's Disease 2:[facility] Humberto Orozco MD 285.9 Anemia Unspec Office Visit 10/16/2011 3:30p [facility] 555.9 Crohn's Brandon Orozco MD Disease 710.0 Lupus Erythematosus Systemic 530.81 Esophageal Reflux Office Visit 10/31/2010 [facility] Betty 569.3 Hemorrhage 10:00a Brandon Schaeffer Rectum & Anus [facility] 555.9 Crohn's Disease 565.0 Anal Fissure Office Visit 03/28/2010 [facility]ae[facility] 555.9 Crohn's 10:15a Brandon CAZARES-C Disease Plan of Treatment Future Appointment(s):09/30/2018 11:15 am - Juvenal Yan DO at [facility]08/28/2018 - Juvenal Yan DOK25.9 Gastric ulcer, unspecified as acute or chronic, without hemorrhage or [id number] Crohn's disease, unspecified, without complications
--- OUTSIDE RECORDS SUMMARY | 2018-09-27 21:48 | XMS REPORT | Continuity of Care Document ---
:1965 External Reference #:[id number] Author Name Isabell Levy Care Team Providers Name Role Phone Sidney Alonso MD Primary Care Physician Unavailable Payers Date Identification Numbers Payment Provider Subscriber Policy Number: [id number] Medicare Nakia Tay PayID: [id number] [address] [place] [address] Effective: 2010 Policy Number: [id number] Medicare Nakia Tay Expires: 2017 PayID: [id number] [address] [place] [address] Expires: 2016 Policy Number: [id number] Medicaid Nakia Tay PayID: [id number] [address] [place] [address] Problems Active Problems Provider Date Localized, primary osteoarthritis Marcela Booker M.D. Onset: 10/24/2017 Localized, primary osteoarthritis of the pelvic Marcela Booker M.D. 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 ETOH Use Denies alcohol use Tobacco Use Start: Unknown Patient has never smoked Recreational Drug Use Denies Drug Use Smoking Status Reviewed: 09/14/18 Patient has never smoked Exercise Type/Frequency Exercises regularly Allergies, Adverse Reactions, Alerts Active Allergies Reaction Severity Comments Date Sulfa Antibiotics neuropathy 01/21/2017 Vancomycin hives 01/21/2017 Dairy 01/21/2017 Medications Active Medications SIG Qnty Indications Ordering Date Provider Hydroxychloroquine Sulfate take one tablet Unknown 200mg by mouth twice a Tablets day Meloxicam take one tab Unknown 7.5mg Tablets twice daily as needed for pain, avoid other nsaids Epipen 2-Arnie use as directed Unknown 0.3mg/0.3ML Solution Auto-Inject Xanax by mouth two Unknown 0.5mg Tablets times a day as needed Ventolin HFA 2 puffs by mouth Unknown 108(90Base) mcg/Act four times a day Aerosol as needed Tumeric daily Unknown [place] 3 2 tabs daily Unknown 1200mg Capsules Glucosamine-Chondroitin 3 tabs by mouth Unknown Capsules daily Albuterol Sulfate Unknown Pepcid take one Unknown 20mg Tablets capsule/tablet daily by mouth History Medications Gabapentin 1-2 tabs by mouth 60tabs Amada Kumar, 01/21/2012 - 600mg every day at M.D. Unknown Tablets bedtime as directed Augmentin one by mouth every Unknown - 875-125mg 12 hours for ten Unknown Tablets days G-Bqutgh-N-Cysteine 2 by mouth four Unknown - times a day 10/23/2017 600mg Capsules Fluticasone 2 sprays each Unknown - Propionate nostril daily as 10/23/2017 50mcg/Act needed Suspension Diazepam William Gleason - 5mg Tablets MD Yaron 10/23/2017 Medications Administered in Office Medication SIG Qnty Indications Ordering Provider Date Depomedrol 40MG Marcela Booker M.D. 09/14/2018 Injection Synvisc Or Synvisc-One Injection 1 Marcela Booker M.D. 11/05/2017 MG Injection Depomedrol 80MG Chester Riley M.D. 09/05/2010 Injection Vital Signs Date Vital Result Comment 09/14/2018 1:48pm Height 68 inches 5'8" Weight 140.00 lb BP Systolic 120 mmHg BP Diastolic 72 mmHg Body Temperature 99.5 F BMI (Body Mass Index) 21.3 kg/m2 11/05/2017 12:17pm Height 67.5 inches 5'7.50" Weight 140.00 lb Heart Rate 78 /min BP Systolic 120 mmHg BP Diastolic 72 mmHg Respiratory Rate 12 /min Pain Level 7 BMI (Body Mass Index) 21.6 kg/m2 10/24/2017 3:21pm Height 67.5 inches 5'7.50" Weight 153.00 lb Heart Rate 60 /min BP Systolic 110 mmHg BP Diastolic 68 mmHg BMI (Body Mass Index) 23.6 kg/m2 07/14/2017 11:05am Height 68 inches 5'8" Weight 140.00 lb BP Systolic Sitting 118 mmHg BP Diastolic Sitting 78 mmHg Pain Level 7 BMI (Body Mass Index) 21.3 kg/m2 01/27/2017 10:20am Height 68 inches 5'8" Weight 140.00 lb Heart Rate 66 /min BP Systolic 126 mmHg BP Diastolic 84 mmHg Respiratory Rate 16 /min Body Temperature 98.1 F BMI (Body Mass Index) 21.3 kg/m2 Results Test Date Facility Test Result H/L Range Note Xray 09/14/2018 [facility] House Inj/Aspir Major JT Or Bursa W/ <pending> US Procedures Date Code Description Status 09/14/2018 Inj/Aspir Major JT Or Bursa W/ US Completed 11/05/2017 Inject/Drain Joint/Bursa Major W/O US Completed 08/14/2017 08647 Sleep Study Unattended,HRT Rate,Oxygen Sat,Resp Completed Effort/Airflow 01/27/2017 62065 Anoscopy Completed 10/02/2011 93181 Polysomnography Sleep Staging 4+ Parameters Completed 09/05/2010 Inject/Drain Joint/Bursa Major W/O US Completed 09/05/2010 90278 Inject/Drain Joint/Bursa Intermediate W/O US Completed Encounters Type Date Location Provider Dx Diagnosis Office Visit 10/24/2017 Orthopedic Marcela Booker, M25.562 Pain in left knee 3:00p [facility] M25.462 Effusion, left knee M17.12 Unilateral primary osteoarthritis, left knee 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 M32.10 Systemic lupus erythematosus, organ or system involv unsp M79.7 Fibromyalgia Office Visit 07/14/2017 10:00a Neurosurgery Ifeoma Odell, M54.81 [facility] REI neuralgia Office Visit 01/27/2017 10:15a [facility] Bryon Lantigua, K62.5 Hemorrhage of Of [facility] , FACS anus and rectum Office Visit 09/05/2016 2:20p [facility] Dermatology Eloy Solorzano, L82.1 Other seborrheic MD keratosis D22.62 Melanocytic nevi of left upper limb, including shoulder Office Visit 01/21/2012 3:30p [facility] Amada Hurtado 327.51 Periodic Limb [facility] Let[facility] Kumar M.D. Movement Disorder 780.93 Memory Loss Office Visit 10/30/2011 3:34p [facility] Amada Hurtado 780.4 Dizziness & [facility] Kumar M.D. Giddiness 780.79 Malaise And Fatigue Other Office Visit 09/05/2010 2:15p Orthopedic Chester Riley, 726.10 Bursae & Tendon [facility] Disorders Shoulder Region Unspec 714.0 Rheumatoid Arthritis 710.0 Lupus Erythematosus Systemic Plan of Treatment 09/14/2018 - Marcela Booker M.D.M25.562 Pain in left kneeM25.462 Effusion, left kneeM17.12 Unilateral primary osteoarthritis, left kneeM06.9 Rheumatoid arthritis, ajggvprsotaU54.10 Systemic lupus erythematosus, organ or system involvement unM79.7 IjsoqullkuzeH13.552 Pain in left hipNew Xrays:Hip Left 2 Views And Pelvis 68439 - 60208, Ordered: 09/14/18Follow up:Follow up: need auth for L knee synvisc ONEM16.12 Unilateral primary osteoarthritis, left hip
--- OUTSIDE RECORDS SUMMARY | 2018-09-27 21:48 | XMS REPORT | Continuity of Care Document ---
:1965 External Reference #:[id number] Author Name William Reaves M.D. Address [address] [place] [address] Care Team Providers Name Role Phone Harjinder Schuler M.D. Care Team Information Decorator Mannequin Unavailable Sidney Alonso MD Primary Care Physician Unavailable Payers Date Identification Numbers Payment Provider Subscriber Policy Number: [id number] Medicare-[facility] Govn [employer] Nakia Tay PayID: [id number] [address] [place] [address] Problems Active Problems Provider Date Herpetic gingivostomatitis William Reaves M.D. Onset: 08/31/2013 Laryngeal spasm William Reaves M.D. Onset: 10/05/2012 Cough variant asthma William Reaves M.D. 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 Cigarette Use Negative For Current Cigarette Smoker Tobacco Use Start: Unknown Never Smoked Cigarettes Tobacco Use Start: Unknown has never smoked cigars Tobacco Use Start: Unknown has never smoked a pipe Smokeless Tobacco has never used smokeless tobacco ETOH Use Current Alcohol Use Occasionally Tobacco Use Start: Unknown Patient has never smoked Smoking Status Reviewed: 09/20/18 Patient has never smoked Allergies, Adverse Reactions, Alerts Active Allergies Reaction Severity Comments Date Bee Sting 10/05/2012 Vancomycin 10/05/2012 Levofloxacin 09/14/2018 Medications Active Medications SIG Qnty Indications Ordering Date Provider Symbicort 2 puffs 2x a 30.6gm R05 William Vick 09/21/2018 160-4.5mcg/Act day with Jean Paul Aerosol spacer, please M.D. dispense with sacer. Benzonatate take 1 capsue 120caps R05 William Vick 09/21/2018 200mg Capsules by 3 times per [facility], day for as M.D. needed for cough Famotidine 1 tab twice a 180tabs R05 William Vick 09/14/2018 40mg Tablets day [facility] M.[facility]. Albuterol HFA 2 puffs every 2 2Inhals Kemal Lopes 10/04/2009 90mcg/Act Aerosol to 4 hours as MD needed for wheezing Meloxicam as needed Harjinder Schuler 7.5mg Tablets M.D. Ventolin HFA as needed Unknown 108(90Base) mcg/Act Aerosol Amino Acids Complex daily Harjinder Schuler Tablets M.DFerny Hydroxychloroquine x 2 daily Sidney Alonso MD Sulfate 200mg Tablets [place]-3 1 po qd Self Epipen 2-Arnie prn Sidney Alonso MD History Medications Ipratropium [place] 2 sprays in each 3units J30.0 William Vcik 07/21/2017 - nostril 4 times a [facility], 10/29/2017 0.06% Solution day as needed for M.D. rhinitis Acyclovir 1 by mouth 5 times 100tabs 054.2 William Vick 08/31/2013 - 400mg Tablets per day for 5 days [facility], 10/10/2015 M.D. Nystatin Swish And 100,000u nystatin- 3WeekSup 054.2 William Vick 08/31/2013 - Swallow 180cc;180 cc [facility], 07/21/2017 diphenhydramine M.D. syrup;60mg hydrocortisone;1.5 gm tetracycline; rinse and spit 10cc qid Patanase 2 sprays in each 4units 477.8 William Vick 01/25/2013 - 0.6% Solution nostril bid [facility], 10/29/2017 M.D. Flovent HFA 2 puffs bid use 3units 493.82 William Vick 01/25/2013 - 110mcg/Act with spacer. Jean Paul, 10/10/2015 Aerosol M.D. Flunisolide 2 sprays each 1units William Vick 10/14/2012 - 29mcg/Act nostril bid. Jean Paul, 01/25/2013 (0.025%) Solution M.D. Azelastine HCL instill 2 sprays 3months 477.8 William Vick 10/05/2012 - into each nostril Jean Paul, 01/25/2013 137mcg/[place] Solution twice a day M.D. Flunisolide 2 sprays each 1units Willaim Vick 10/05/2012 - 29mcg/Act nostril bid. Jean Paul, 10/05/2012 (0.025%) Solution M.D. Symbicort 2 puff bid with 3units 493.82 William Vick 10/05/2012 - 80-4.5mcg/Act spacer Jean Paul, 01/25/2013 Aerosol M.D. Prednisone 2 tablets qd for 5 10tabs 381.9 William Vick 10/11/2010 - 20mg Tablets days Jean Paul, 10/05/2012 M.Cl Tessalon Perles 1 po qid 120caps 786.2 William Vick 08/28/2009 - 100mg Jean Palu, 02/06/2010 Capsules M.D. Xyzal 1 po qd 30tabs William Vick 12/15/2008 - 5mg Tablets Jean Paul, 08/28/2009 MMike Patanase 2 sprays bid 1units 477.9 William Vick 11/29/2008 - 0.6% Solution Jean Paul, 01/25/2013 M.D. Mycelex one 5 times daily 50units 112.0 Tony Roldan 02/11/2008 - 10mg Karina Renteria MD 08/28/2009 Nystatin diphenhydramine 7Days 112.0 Tony Roldan 02/11/2008 - 100,000U/ML syrup 180 cc + MD Myra 08/28/2009 180cc Suspension hydrocortisone 60mg swish and swallow 1 teaspoon twice A day Nasonex 2 sprays each 17GMS 784.91 Tony Roldan 03/23/2007 - 50mcg/Act nostril daily MD Myra 08/28/2009 Suspension Mycelex one 5 times daily 50units 112.0 Tony Roldan 03/12/2007 - 10mg Karina MD Myra 02/03/2008 Mycelex one 5 times daily 100units 112.0 Tony Roldan 03/12/2007 - 10mg Karina for 20 days MD Myra 02/03/2008 None Unknown - 02/03/2008 Plaquenil 1 po qd Sidney Alonso MD - 200mg 10/10/2015 Sulfamethoxazole Unknown - 08/28/2009 Entocort Ec prn Sidney Alonso MD - 07/21/2017 Singulair Unknown - 01/25/2013 Nortriptyline HCL Unknown - 10/05/2012 Epinephrine Unknown - 0.3mg/0.3ML 07/21/2017 Solution Auto-Inject Pepcid 1 tab twice daily Unknown - 20mg Tablets 09/14/2018 Vital Signs Date Vital Result Comment 09/14/2018 11:13am Weight 148.00 lb Weight 67.133 kg Height 68 inches 5'8" Height in cm's 172.7 cm BMI (Body Mass Index) 22.5 kg/m2 10/29/2017 2:28pm Weight 145.00 lb Weight 65.772 kg Height 68 inches 5'8" Height in cm's 172.7 cm BMI (Body Mass Index) 22.0 kg/m2 08/19/2017 2:19pm Weight 145.00 lb Weight 65.772 kg Height 68 inches 5'8" Height in cm's 172.7 cm BMI (Body Mass Index) 22.0 kg/m2 07/21/2017 2:18pm Weight 145.00 lb Weight 65.772 kg Height 68 inches 5'8" Height in cm's 172.7 cm BMI (Body Mass Index) 22.0 kg/m2 Neck Circumference in inches 11.5 Neck Circumference in cm 29.2 cm 10/31/2015 3:52pm BP Systolic 140 mmHg BP Diastolic 78 mmHg Heart Rate 79 /min Respiratory Rate 17 /min Weight 149.00 lb Weight 67.586 kg Height 68 inches 5'8" Height in cm's 172.7 cm BMI (Body Mass Index) 22.7 kg/m2 10/10/2015 2:07pm BP Systolic 125 mmHg BP Diastolic 84 mmHg Heart Rate 67 /min Respiratory Rate 17 /min Weight 149.00 lb Weight 67.586 kg Height 68 inches 5'8" Height in cm's 172.7 cm BMI (Body Mass Index) 22.7 kg/m2 09/23/2013 11:05am BP Systolic 126 mmHg BP Diastolic 77 mmHg Heart Rate 85 /min Respiratory Rate 17 /min Weight 149.00 lb Weight 67.586 kg Height 68 inches 5'8" Height in cm's 172.7 cm BMI (Body Mass Index) 22.7 kg/m2 09/09/2013 11:40am BP Systolic 130 mmHg BP Diastolic 71 mmHg Heart Rate 71 /min Respiratory Rate 17 /min Weight 149.00 lb Weight 67.586 kg Height 68 inches 5'8" Height in cm's 172.7 cm BMI (Body Mass Index) 22.7 kg/m2 08/31/2013 11:05am BP Systolic 118 mmHg BP Diastolic 68 mmHg Heart Rate 79 /min Respiratory Rate 16 /min Weight 149.00 lb Weight 67.586 kg Height 68 inches 5'8" Height in cm's 172.7 cm BMI (Body Mass Index) 22.7 kg/m2 01/25/2013 1:45pm BP Systolic 118 mmHg BP Diastolic 78 mmHg Heart Rate 70 /min Respiratory Rate 17 /min Weight 149.00 lb Weight 67.586 kg Height 68 inches 5'8" Height in cm's 172.7 cm BMI (Body Mass Index) 22.7 kg/m2 10/05/2012 11:25am BP Systolic 121 mmHg BP Diastolic 75 mmHg Heart Rate 72 /min Respiratory Rate 16 /min Weight 149.00 lb Weight 67.586 kg Height 68 inches 5'8" Height in cm's 172.7 cm BMI (Body Mass Index) 22.7 kg/m2 08/02/2008 10:11am BP Systolic 113 mmHg BP Diastolic 80 mmHg Heart Rate 76 /min Respiratory Rate 16 /min 02/03/2008 10:10am BP Systolic 110 mmHg BP Diastolic 73 mmHg Heart Rate 77 /min Respiratory Rate 16 /min 05/20/2007 4:32pm BP Systolic 110 mmHg BP Diastolic 77 mmHg Heart Rate 70 /min Respiratory Rate 15 /min 03/12/2007 9:39am BP Systolic 145 mmHg BP Diastolic 80 mmHg Heart Rate 76 /min Respiratory Rate 14 /min Results Test Date Facility Test Result H/L Range Note Laboratory test [facility] Blood Urea 12 mg/ dL N 6-24 finding 6 c/o Department of Laboratories [place] [address] [phone] Creatinine [facility] Creatinine 0.65 mg/dL N 0.51-0.95 6 c/o Department [place] [address] [phone] Egfr Non- 96.1 N >60 Egfr 123.6 N >60 1 HSV/VZV Derm PCR 09/09/2013 [facility] hs/VZ Source oral cavity N c/o Department [place] [address] [phone] HSV 1 PCR Negative N Negative HSV 2 PCR Negative N Negative 2 Varicella Zoster Source oral cavity N Varicella Zoster Result Negative N Negative 3 Laboratory test 09/13/2008 [facility] ( SEE NOTE) 4, 5 finding c/o Department [place] [address] [phone] 1 Because ethnic data is not always [...] 5 Kidney failure <15 (or dialysis) 2 Analyte Specific Reagent: This test was developed and its performance characteristics determined by [facility]. It has not been cleared or approved by the U.S. Food and Drug Administration. 3 Laboratory developed test. Test Performed by: [address] [address] Granulizing Machine Operator: Dominik Mendez III, M.D. 4 7485. 5 TEST RESULT RETURNED FROM REFERENCE LABORATORY AND HARDCOPY SENT TO PHYSICIAN(S) OFFICE. Procedures Date Code Description Status 10/01/2017 94972 Nasal Endoscopy, Diagnostic Completed 10/05/2012 64098 Demonstration/Eval. Of Patient Utilization Of Completed Spacer/Nebulizer 10/05/2012 32312 Bronchospasm Evaluation Completed 10/11/2010 23097 Tympanometry Completed 10/11/2010 92116 Comprehensive Audiogram Completed 02/13/2010 80005 Medical Records Completed 02/09/2010 91297 Medical Records Completed 02/06/2010 80061 Demonstration/Eval. Of Patient Utilization Of Completed Spacer/Nebulizer 02/06/2010 74941 Respiratory Flow Volume Loop Completed 02/06/2010 24048 Bronchospasm Evaluation Completed 02/06/2010 10505 Fiberoptic Laryngoscopy Completed 08/28/2009 79838 Fiberoptic Laryngoscopy Completed 08/28/2009 65073 Bronchospasm Evaluation Completed 08/28/2009 63212 Respiratory Flow Volume Loop Completed 08/28/2009 44918 Demonstration/Eval. Of Patient Utilization Of Completed Spacer/Nebulizer 05/17/2009 68944 Pers Bal W/O Completed 09/13/2008 13825 Prick Test Completed 08/02/2008 10705 Fiberoptic Laryngoscopy Completed 03/23/2008 19732 Eval Of Speech, Voice, Communicat Completed 03/23/2008 39413 Videostroboscopy Completed 05/20/2007 99025 Fiberoptic Laryngoscopy Completed 03/12/2007 15603 Fiberoptic Laryngoscopy Completed 04/07/2003 91945 Prick Test Completed Encounters Type Date Location Provider Dx Diagnosis Office Visit 09/21/2018 2:45p Inderjit,After 03/03/07 Ruben Fox M.D. K21.9 Gastro-esophageal reflux disease without esophagitis E04.1 Nontoxic single thyroid nodule Office Visit 09/14/2018 11:00a Inderjit,After 03/03/07 Ruben Fox M.D. K21.9 Gastro-esophageal reflux disease without esophagitis E04.1 Nontoxic single thyroid nodule Z87.892 Personal history of anaphylaxis Office Visit 10/29/2017 Post,After William Vick J30.0 Vasomotor 2:30p 03/03/07 Mara Reaves rhinitis Office Visit 08/19/2017 Post,After William Vick J30.0 Vasomotor 2:15p 03/03/07 Mara Reaves rhinitis M50.10 Cervical disc disorder w radiculopathy, unsp cervical region E04.1 Nontoxic single thyroid nodule Office Visit 07/21/2017 Post,After William Vick K14.1 Geographic 2:15p 03/03/07 Mara Reaves tongue R09.82 Postnasal drip G47.33 Obstructive sleep apnea (adult) (pediatric) J30.0 Vasomotor rhinitis Office Visit 10/31/2015 4:00p Post,After 03/03/07 William Vick M54.2 Cervicalgia Mara Reaves Office Visit 10/10/2015 2:00p Post,After 03/03/07 William Vick M54.2 Cervicalgia Mara Reaves R22.1 Localized swelling, mass and lump, neck Office Visit 09/23/2013 Post,After Kemal Lopes 054.2 Stomatitis, 11:00a 03/03/07 Herpes (Simplex) 529.1 Geographic Tongue Office Visit 09/09/2013 Post,After Kemal Lopes 054.2 Stomatitis, 11:45a 03/03/07 Herpes (Simplex) 529.1 Geographic Tongue Office Visit 08/31/2013 Post,After William Vick 054.2 Stomatitis, 11:15a 03/03/07 Mara Reaves Herpes (Simplex) Office Visit 01/25/2013 Post,After William Vick 493.82 cough variant 1:45p 03/03/07 Mara Reaves asthma 477.8 Rhinitis, Perennial, Allergy Office Visit 10/05/2012 11:15a Post,After William Vick 493.82 cough variant 03/03/07 Mara Reaves asthma 478.75 Spasm, Laryngeal Office Visit 10/11/2010 1:30p Post,After 03/03/07 Mando 784.91 Postnasal Drip Kathryn SLEEPING BAG FILLER 381.9 Eustachian Tube Disorder Unspec 389.10 Hearing Loss, Sensorineural/Unspecified Office Visit 02/06/2010 3:45p Post,After 03/03/07 William Reaves, 786.2 Cough M.D. 484.8 Pneumonia In Other Infectious Diseases Class Elsewhere Office Visit 10/03/2009 3:45p Post,After 03/03/07 William Reaves, 786.2 Cough M.D. 787.24 Dysphagia, Pharyngoesophageal Phase 493.82 cough variant asthma Office Visit 08/28/2009 10:45a Post,After 03/03/07 William Vick 786.2 Cough Mara Reaves Office Visit 11/29/2008 11:30a Post,After 03/03/07 Kathryn Gilmore 477.8 Rhinitis, SLEEPING BAG FILLER Perennial, Allergy 477.9 Rhinitis, Allergic 112.0 Thrush, Oral Or Mouth Office Visit 08/02/2008 10:00a Post,After 03/03/07 William Vick 478.5 Vocal Cord Mara Reaves Nodule 784.91 Postnasal Drip 477.8 Rhinitis, Perennial, Allergy Office Visit 02/11/2008 9:00a Post,After Tony Roldan 784.49 Hoarseness 03/03/07 MD Myra /Other 784.1 Pain Of Throat 112.0 Thrush, Oral Or Mouth Office Visit 02/03/2008 10:00a Post,After 03/03/07 Tony Roldan 784.1 Pain Of MD Myra Throat 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 Perennial, Allergy Plan of Treatment 09/21/2018 - William Reaves M.D.R05 CoughNew Medication:Symbicort 160- 4.5 mcg/Act - 2 puffs 2x a day with spacer, please dispense with sacer.Benzonatate 200 mg - take 1 capsue by 3 times per day for as needed for coughNew Xrays:Chest X-ray PA & Lateral, Ordered: 09/21/18Comments:The patient returned after her PFT. It is normal. She continues with the severe cough. See had bene on Azithromycin, Clarithromycin, Amoxicillin and none of this has helped. She does have an ulcer and is on Famotidine. she does have a hiatal hernia. She is scheduled for repeat esophagoscopy. I will get a chest Xray. She is using Ventolin and feels it does help some. I will put her on Symbicort.I will put her on Tessalon Perles. She will ask her PCP about the TB test.K21.9 Gastro-esophageal reflux disease without houlpzdxknzC60.1 Nontoxic single thyroid noduleNew Xrays:Ultrasound Guided Needle Aspirate, Ordered: 09/21Comments:The patient also had her thyroid US. It does show that the nodule has grown to 1.2 CM in maximum dimension. It is low suspicious but because of the known change in size I am recommended a US guided FNA
--- OUTSIDE RECORDS SUMMARY | 2018-09-27 21:48 | XMS REPORT | Continuity of Care Document ---
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 [facility] 9 [address] [facility], [address] [facility], , [place], [place], [address]. 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 Provider: [facility] (routine) w 9 [address] [facility] [place], [address] [facility] [place] [facility] [place] for removal of [place], St, [place], [place], [place], [place], [place] [address]. [place], [address]. [id number], device tel:+60 tel:[phone] [place] [phone] tel:[phone] [facility] [place] Lzu. [facility] [address] [place], [address], [address] [place] [place], St, [place], [place], [address]. [id number], tel:[phone] [place] [phone] tel:[phone] [facility] Oct- [facility] [place] Ifeoma. [facility] [address] [place], [address], [address] [place] [place], St, [place], [address]. [id number], tel:[phone] US [phone] tel:[phone] [facility] STEWARD/STEWARDESS SECOND Exam, Routine Parete Referring Parenthood [facility] Caro. Provider: [facility] [address] [place] Jyoti R, [facility], [address], [address] [place], [address], St, [place], [place], [place], [address]. [place], [address]. [id number], tel:+60 tel:[phone] [place] [phone] tel:[phone] Family History Family Member Diagnosis Age At Onset Paternal grandmother Rheumatoid arthritis Paternal grandfather Heart disease Maternal grandmother Cancer, breast Father Hypertension Maternal grandfather Diabetes mellitus Mother Thyroid disorder Sister Lupus erythematosus Father High cholesterol Paternal grandmother Alzheimer's disease Maternal grandfather Blood clots, lung (Cause Of ) Immunizations Vaccine Date Status Comments measles, mumps and rubella administered Note: per [facility] 2011 ; virus vaccine Source: Source Unspecified Hep A and Hep B administered Note: per [facility] 10/2011 ; Source: Source Unspecified Payers Payer name Insurance type Covered republican ID Authorization(s) Medicare MB [id number] Social History Type Description Quantity Date Captured Comments Alcohol Use Details Unknown Caffeine Use Details Unknown Tobacco Use Status Unknown Smoking Status Never smoker Sex Female Vital Signs Date / Height Weight BMI Pulse Blood Temperature Respiratory Body Head BMI Pulse Inhaled Time: Rate Pressure Rate Surface Circumference percentile Ox Ox Area No information Chief Complaint And Reason For Visit No information Reason For Referral Reason For Referral No information Plan Of Treatment Date Type Action Status Referral Ordered: ordered Referrals: Pelvic Ultrasound. Diagnostic testing History Of Present Illness Encounter Date Complaint History Of Present Illness No information Functional Status Date Functional Assessment No information Medications Administered Medication Instructions Dosage Effective Dates (start - stop) Status Comments No information Instructions Date Instruction Additional Information No information Assessments Type Assessment Date assessment Hypertrophy of uterus Goals Health Concern Goal Type Priority Status Date No information Medical Equipment Description Device Melrude Device Identifier Effective Dates (start - stop ) Status No information Mental Status Date Cognitive Assessment No information Health Concerns Observation Date No information Concern Status Date No information
--- OUTSIDE RECORDS SUMMARY | 2018-09-27 21:48 | XMS REPORT | Continuity of Care Document ---
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 [facility] 9 [address] [place], [address] [place], , [place], [address], [id number], [place]. [place] tel:[phone] [facility] Encntr for reading teacher [place] [facility]erring [facility] exam (general[facility] Danyelle. Provider: [facility] (routine) w 9 [address] abnormal [place], [address], [address] [place] for removal of [place], St, St, [place], [place]ine [place], [place], [place] [address]. [place], [address]. [id number], device tel:+60 tel:[phone] US [phone] tel:[phone] [facility] [place] Luz. [facility] 4 [address] [facility] [facility], [address] [place], St, [place], [address]. [id number], tel:[phone] US [phone] tel:[phone] [facility] Oct- [facility] [place] Ifeoma. [facility] 4 [address] [place], [address] [place], , [place], [address]. 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 Provider: [facility] 4 [address] [place] Jyoti R, [facility], [address], [address] [place] [place], [address], St, [place], [place], [place], [address]. [place], [address]. [id number], tel:+60 tel:[phone] [place] [phone] tel:[phone] Family History Family Member Diagnosis Age At Onset Paternal grandmother Rheumatoid arthritis Paternal grandfather Heart disease Maternal grandmother Cancer, breast Father Hypertension Maternal grandfather Diabetes mellitus Mother Thyroid disorder Sister Lupus erythematosus Father High cholesterol Paternal grandmother Alzheimer's disease Maternal grandfather Blood clots, lung (Cause Of ) Immunizations Vaccine Date Status Comments measles, mumps and rubella administered Note: [facility] 2011 ; virus vaccine Source: Source Unspecified Hep A and Hep B administered Note: per [facility] 10/2011 ; Source: Source Unspecified Payers Payer name Insurance type Covered constitution party ID Authorization(s) Medicare MB [id number] Social History Type Description Quantity Date Captured [...] Information No information Assessments Type Assessment Date No information Goals Health Concern Goal Type Priority Status Date No information Medical Equipment Description Device Hubbell Device Identifier Effective Dates (start - stop ) Status No information Mental Status Date Cognitive Assessment No information Health Concerns Observation Date No information Concern Status Date No information
[2018-09-27] MEDS ORDERED: Lorazepam PYXIS KEY PRN (22:24)
[2018-09-27] MEDS ORDERED: LORazepam INJ* 2 MG/ML 1 ML VIAL IV PUSH ONE (22:24)
[2018-09-27] MEDS ORDERED: NS 0.9% 1000 ML** 1,000 ML IV ONE (22:24)
[2018-09-27] MEDS ORDERED: LORazepam INJ* 2 MG/ML 1 ML VIAL ONE (22:28)
[2018-09-27] MEDS ORDERED: Lorazepam PYXIS KEY ONE (22:28)
--- NOTE | 2018-09-27 22:28 | ED ---
Complex/Multi-Sys Presentation - HPI Summary HPI Summary: This patient is a 52 year old F presenting to 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 She states that she has a cough and was informed by her PCP to come to the ED to have her thyroid levels examined. She also states that she has had an intermittent fever. She also complains of both abdominal pain and CP which is rated a 7/10 in severity. She has no alleviating or aggravating factors. Pt denies any erythema of eyes, sore throat, N/V, dysuria, hematuria, myalgia, edema, rash, or dizziness. She also states that she feels confused. She stated that she has a PMHx of lupus and is having a surgery on 10/02/18 for a possible tumor on her thyroid. - History Of Current Complaint Chief Complaint: EDAbdPain Time Seen by Provider: 09/27/18 22:07 Hx Obtained From: Patient Onset/Duration: Gradual Onset, Still Present, Worse Since Timing: Constant Severity Currently: Moderate Severity Initially: Mild Aggravating Factor(s): nothing Alleviating Factor(s): nothing Associated Signs And Symptoms: Positive: Confusion, SOB, Cough, Chest Pain, Abdominal Pain, Fever, Other - chills. Negative: Nausea, Vomiting Related History: Recent Illness - Allergies/Home Medications Allergies/Adverse Reactions: Allergies Allergy/AdvReac Type Severity Reaction Status Date / Time levofloxacin [From Levaquin] Allergy Anaphylatic Verified 09/27/18 21:41 Shock omeprazole Allergy Anaphylatic Verified 09/27/18 21:41 Shock vancomycin AdvReac Hives Verified 09/27/18 21:41 IV CONTRAST Allergy Tinnitus Uncoded 09/27/18 21:41 Home Medications: Home Medications Budesonide/Formote 160/4.5(NF) [Symbicort 160/4.5 (NF)] 1 puff INH Q6HR [History Confirmed 09/27/18] Famotidine 40 mg PO BID 09/27/18 [History Confirmed 09/27/18] Tessalon 100 MG CAP* 100 mg PO DAILY 09/27/18 [History Confirmed 09/27/18] PMH/Surg Hx/FS Hx/Imm Hx Previously Healthy: No Endocrine/Hematology History: Reports: Hx Blood Disorders - mild von willebrands , Hx Systemic Lupus Erythematosus Denies: Hx Diabetes Cardiovascular History: Denies: Hx Congestive Heart Failure, Hx Hypertension, Hx Pacemaker/ICD Respiratory History: Reports: Hx Asthma - mild seasonal, Hx Sleep Apnea GI History: Reports: Hx Crohn's Disease, Other GI Disorders - CROHN'S DISEASE History: Denies: Hx Dialysis, Hx Renal Disease Musculoskeletal History: Reports: Hx Arthritis, Hx Rheumatoid Arthritis, Other Musculoskeletal History - RA Sensory History: Denies: Hx Hearing Aid Neurological History: 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 Psychiatric History: Denies: Hx Panic Disorder - Cancer History Hx Chemotherapy: No - Surgical History Surgery Procedure, Year, and Place: ovarian cyst, lypomia removal, rheumatoid nodule right foot. BILATERAL CARPAL TUNNEL. 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 Negative: Vomiting, Nausea Negative: dysuria, hematuria Negative: Myalgia, Edema Negative: Rash Neurological: Negative - Dizziness All Other Systems Reviewed And Are Negative: Yes Physical Exam - Summary Physical Exam Summary: VITAL SIGNS: Reviewed. GENERAL: Patient is a well-developed and nourished female who is lying comfortable in the stretcher. Patient is not in any acute respiratory distress. States that she has multiple different issues. HEAD AND FACE: No signs of trauma. No ecchymosis, hematomas or skull depressions. No sinus tenderness. EYES: PERRLA, EOMI x 2, No injected conjunctiva, no nystagmus. EARS: Hearing grossly intact. Ear canals and tympanic membranes are within normal limits. MOUTH: Oropharynx within normal limits. NECK: Supple, trachea is midline, no adenopathy, no JVD, no carotid bruit, no c- spine tenderness, neck with full ROM CHEST: Symmetric, no tenderness at palpation LUNGS: Clear to auscultation bilaterally. No wheezing or crackles. CVS: Regular rate and rhythm, S1 and S2 present, no murmurs or gallops appreciated. ABDOMEN: Soft, non-tender. No signs of distention. No rebound no guarding, and no masses palpated. Bowel sounds are normal. EXTREMITIES: FROM in all major joints, no edema, no cyanosis or clubbing. NEURO: Alert and oriented x 3. No acute neurological deficits. Speech is normal and follows commands. SKIN: Dry and warm PSYCH: pt is anxious Triage Information Reviewed: Yes Vital Signs On Initial Exam: Initial Vitals Temp Pulse Resp BP Pulse Ox 99.5 F 97 17 175/121 99 09/27/18 21:39 09/27/18 21:39 09/27/18 21:39 09/27/18 21:39 09/27/18 21:39 Vital Signs Reviewed: Yes Diagnostics - Vital Signs Vital Signs Temp Pulse Resp BP Pulse Ox 09/27/18 22:06 98.2 F 09/27/18 22:01 73 99 09/27/18 21:59 79 155/92 100 09/27/18 21:39 99.5 F 97 17 175/121 99 - Laboratory Result Diagrams: 09/27/18 22:32 09/27/18 22:32 Lab Statement: Any lab studies that have been ordered have been reviewed, and results considered in the medical decision making process. Complex Multi-Symp Course/Dx Course Of Treatment: This patient is a 52 year old F presenting to 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 She states that she has a cough and was informed by her PCP to come to the ED to have her thyroid levels examined. She also states that she has had an intermittent fever. Her PE found that she was anxious. Her Labs are consistent with a UTI. She will be discharged home with a Dx of UTI and abdominal pain. She will be given ABX to treat her UTI. - Diagnoses Provider Diagnoses: UTI (urinary tract infection), Abdominal pain Discharge - Sign-Out/Discharge Documenting (check all that apply): Patient Departure - discharge Patient Received Moderate/Deep Sedation with Procedure: No - Discharge Plan Condition: Stable Disposition: HOME Prescriptions: Sulfamethox/Trimethoprim DS* [Bactrim DS 800/160 TAB*] 1 tab PO BID #6 tab Patient Education Materials: Urinary Tract Infection in Women (ED), Acute Abdominal Pain (ED) Referrals: Sidney Alonso MD [Primary Care Provider] - 2 Days Additional Instructions: Please return to the emergency department for any new or worsening symptoms. Follow up with your primary care provider in 2-3 days. Take the antibiotic as directed above. - Attestation Statements Document Initiated by Scribe: Yes Documenting Scribe: Zia Hutton Provider For Whom Scribe is Documenting (Include Credential): Daniel Garcia MD Scribe Attestation: IZia, scribed for Daniel Garcia MD on 09/28/18 at 0005. Status of Scribe Document: Ready
[2018-09-27 22:41] LABS: ABS Basophils 0.1 10^3/ul (0-0.2); ABS Eosinophils 0.1 10^3/ul (0-0.6); ABS Lymphocytes 1.8 10^3/ul (1.0-4.8); ABS Monocytes 0.5 10^3/ul (0-0.8); ABS Neutrophils 5.1 10^3/ul (1.5-7.7); Eosinophil % 0.9 %; Hematocrit 36 % (35-47); Hemoglobin 12.1 g/dL (12.0-16.0); Lymphocyte % 24.1 %; Mean Corpuscular HGB Conc 34 g/dL (31-36); Mean Corpuscular Hemoglobin 30 pg (27-31); Mean Corpuscular Volume 89 fL (80-97); Mean Platelet Volume 7.3 fL (7.4-10.4); Platelet Count 331 10^3/uL (150-450); Red Blood Count 4.05 10^6 /uL (3.70-4.87); Red Cell Distribution Width 14 % (10-15); White Blood Count 7.5 10^3/uL (3.5-10.8)
[2018-09-27 22:59] LABS: Urine Appearance Clear; Urine Bacteria Absent (Absent); Urine Bilirubin Negative (Negative); Urine Blood 2+ (Negative); Urine Color Straw; Urine Glucose Negative (Negative); Urine Ketones Negative (Negative); Urine Nitrite Negative (Negative); Urine Protein Negative (Negative); Urine Red Blood Cell Trace(0-2/hpf) (Absent); Urine Specific Gravity 1.005 (1.010-1.030); Urine Squamous Epithelial Cell Present (Absent); Urine Urobilinogen Negative (Negative); Urine White Blood Cell Trace(0-5/hpf) (Absent)
[2018-09-27 23:02] LABS: Albumin 4.5 g/dL (3.2-5.2); Albumin/Globulin Ratio 1.6 (1-3); BUN/Creatinine Ratio 23.5 (8-20); Calcium 10.2 mg/dL (8.6-10.3); EGFR African American 109.5 (>60); EGFR Non-African American 90.5 (>60); Globulin 2.8 g/dL (2-4); Potassium 3.4 mmol/L (3.5-5.0); Total Bilirubin 0.4 mg/dL (0.2-1.0); Total Protein 7.3 g/dL (6.4-8.9)
[2018-09-27 23:16] LABS: TSH (Thyroid Stimulating Horm) 2.21 mcIU/mL (0.34-5.60)
[2018-09-27] MEDS ORDERED: Potassium Chlor TAB* 20 MEQ TAB.ER PO ONE (23:28)
[2018-09-28] MEDS ORDERED: Sulfamethox/Trimethoprim DS 800/160* TAB PO ONE (00:03)
[2018-09-28 00:30] VITALS: BP 128/74
== END 2018-09-28 00:23 | disposition home or self-care (01) ==
LOC: ED 21:37
DX: N39.0 Urinary tract infection, site not specified (principal); R10.9 Unspecified abdominal pain; R07.89 Other chest pain; R41.0 Disorientation, unspecified; R06.02 Shortness of breath; M32.9 Systemic lupus erythematosus, unspecified; D68.0 Von Willebrand disease; K50.90 Crohn's disease, unspecified, without complications; M06.9 Rheumatoid arthritis, unspecified; Z86.14 Personal history of Methicillin resistant Staphylococcus aureus infection; Z88.8 Allergy status to other drugs, medicaments and biological substances; Z88.1 Allergy status to other antibiotic agents; Z91.041 Radiographic dye allergy status
CPT/HCPCS: 36415; 80053; 81003; 81015; 82150; 83690; 84443; 85025; 87086; 96361; 96374; 99283; A9270-GY; J2060

== ENCOUNTER → 2018-10-03 05:56 | Emergency (ER) | payer MEDICARE, MEDICAID ==
[~2018-10-03 05:56] MED LIST: Iohexol 300* (CONTRAST) 10 ML SDV IV SCH; Ketorolac INJ* 30 MG/ML 1 ML VIAL IV PUSH ONE; Morphine 4 MG/ML VIAL (1 ml) 4 MG/ML VIAL IV ONE; Ondansetron INJ* 2 MG/ML VIAL IV ONE; Simethicone TAB* 80 MG TAB.CHEW PO ONE
--- OUTSIDE RECORDS SUMMARY | 2018-10-03 06:26 | XMS REPORT | Continuity of Care Document ---
:1965 External Reference #:[id number] Author Name Reza Ceballos M.D. Address [address] [place] [address] Care Team Providers Name Role Phone Reza Ceballos M.D. 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 Onset: 09/29/2018 Vulvar vestibulitis Reza Ceballos M.D. Onset: 09/29/2018 Family History Date Family Member(s) Observation Comments Father Hypertension Mother chronic rome bare Social History Type Date Description Comments Sex Unknown Occupation Disabled ETOH Use Denies alcohol use Tobacco Use Start: Unknown Patient denies history of smoking Recreational Drug Use Denies Drug Use Smoking Status Reviewed: 09/22/18 Patient denies history of smoking Allergies, Adverse Reactions, Alerts Active Allergies Reaction Severity Comments Date Vancomycin Hives 09/29/2018 Omeprazole Hives 09/29/2018 Levaquin Hives 09/29/2018 Medications Active Medications SIG Qnty Indications Ordering Date Provider Belladonna Alkaloids-Opium place one supp 4units Tucker, 09/29/2018 is vagina once Mara Cobb 16.2-30mg Suppository a day Premarin pea size dr 30gm Tucker, 09/29/2018 0.625mg/GM Cream into vagina 2 Mara Cobb x week Hydroxychloroquine Sulfate Unknown 200mg Tablets Bactrim DS 1 tab by mouth Unknown 800-160mg Tablets twice a day for 3 days Vital Signs Date Vital Result Comment 09/29/2018 3:18pm BP Systolic 142 mmHg BP Diastolic 89 mmHg Body Temperature 97.5 F Heart Rate 87 /min Respiratory Rate 17 /min Height 68 inches 5'8" Weight 142.50 lb BMI (Body Mass Index) 21.7 kg/m2 BSA (Body Surface Area) 1.77 m2 [place] body weight in kilograms 63 kg O2 % BldC Oximetry 100 % Pain Level 7 pelvic Results Test Date Facility Test Result H/L Range Note Urine Dipstick 09/29/2018 [facility] Ua Color yellow Yellow Ua Clarity clear Clear Ua Leuko neg Negative Ua Nitrite neg Negative Ua Urobilinogen 0.2 0.2 - 1.0 E.U./dL Ua Protein neg Negative Ua PH 6.5 6.5-7.5 Ua Blood 25 High Negative Ua Specific [place] 1.015 1.010-1.030 Ua Ketones neg Negative Ua Bilirubin neg Negative Ua Glucose neg Negative Encounters Type Date Location Provider Dx Diagnosis Office Visit 09/29/2018 Urology Reza Ceballos N94.810 Vulvar vestibulitis 3:15p Mara N95.2 Postmenopausal atrophic vaginitis Plan of Treatment 09/29/2018 - Reza Ceballos M.D.N94.810 Vulvar vestibulitisComments:Patient currently is on antibiotics. She does have dyspareunia and vulvodynia. I will give her opium belladonna suppositories. I will also have her see Dr. Ricci at [facility] for further evaluationof possible pelvic floor reconstruction after she has her hysterectomy.N95.2 Postmenopausal atrophic vaginitisComments:We'll start patient on Premarin cream
--- OUTSIDE RECORDS SUMMARY | 2018-10-03 06:26 | XMS REPORT | Continuity of Care Document ---
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 [facility] 9 [address] [facility], [address] , [place], [address]. [id number], tel:[phone] tel:[phone] [facility] Hypertrophy of Aug- [facility] [place] uterus 6-201 Danyelle. [facility] 9 [address] [facility], [address] [facility], [place], [place], [address]. 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 Provider: [facility] (routine) w 9 [address] abnormal [place], [address] W [place] for removal of [place], St, St, [place], intrauterine [place], [place], contrace[place] [address]. [place], [address]. [id number], device tel:+ tel:+[phone] [place] [phone] tel:[phone] [facility] [place] Luz. [facility] 4 [address] [place], [address] [place], , [place], [address]. [id number], tel:+[phone] [place] [phone] tel:[phone] [facility] [place] Ifeoma. [facility] 4 [address] [place], [address] [place], , [place], [place], [address]. 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 Provider: [facility] 4 [address] [place] Jyoti R, [facility], [address], [address] [place], [place] [address], [address], [place], [place], [place], [address]. [place], [address]. [id number], tel:+60 tel:+[phone] [place] [phone] tel:[phone] Family History Family Member Diagnosis Age At [...] A and Hep B administered Note: per health hx 10/2011 ; Source: Source Unspecified Payers Payer name Insurance type Covered constitution party ID Authorization(s) Medicare MB [id number] Social History Type Description Quantity Date Captured [...] Date No information Medical Equipment Description Device [place] Device Identifier Effective Dates (start - stop ) Status No information Mental Status Date Cognitive Assessment No information Health Concerns Observation Date No information Concern Status Date No information
--- OUTSIDE RECORDS SUMMARY | 2018-10-03 06:26 | XMS REPORT | Continuity of Care Document ---
:1965 External Reference #:[id number] Author Name Shaheed Alves, OD Address [address] [place] [address] Care Team Providers Name Role Phone Sidney Alonso MD Care Team Information Trauma Surgeon Unavailable Sidney Alonso MD Primary Care Physician Unavailable Payers Date Identification Numbers Payment Provider Subscriber Policy Number: [id number] [place] PayID: [id number] [address] [place] [address] Problems Active Problems Provider Date Taking medication Shaheed Sanchez O.D. Onset: 01/31/2014 Vitreous degeneration Shaheed Sanchez O.D. Onset: 01/31/2014 Presbyopia Shaheed Sanchez O.D. Onset: 01/31/2014 Family History Date Family Member(s) Observation Comments General H/O: Hypertension General Diabetes General Grandparents Father H/O: Hypertension Social History Type Date Description Comments Sex Unknown ETOH Use Denies alcohol use Tobacco Use Start: Unknown Patient has never smoked Smoking Status Reviewed: 09/28/18 Patient has never smoked Allergies, Adverse Reactions, Alerts Active Allergies Reaction Severity Comments Date Seasonal 01/31/2014 Vancomycin 01/31/2014 Levaquin 09/28/2018 Omeprazole 09/28/2018 Medications Active Medications SIG Qnty Indications Ordering Date Provider Fluorometholone 1gtt three 10ml Shaheed Alves, 09/28/2018 0.1% Suspension times a day OD both eyes x 1 week, then bid x 3 weeks Restasis Multidose 1 drop both 16.5units Shaheed Alves, 09/30/2017 0.05% eyes twice a OD Emulsion day Alprazolam prn Gavin HUI, 0.5mg Tablets Sidney Stroud Meloxicam prn Unknown 15mg Tablets Methylprednisolone (Arnie) prn Gavin HUI, 4mg Sidney T. Tablets Hydroxychloroquine Unknown Sulfate 200mg Tablets Benzonatate Take 1 Capsule Unknown 200mg Capsules By Mouth Three Times Daily as Needed For Cough Symbicort Inhale 2 Puffs Unknown 160-4.5mcg/Act By Mouth Twice Aerosol Daily With Spacer Famotidine Take 1 Tablet Unknown 40mg Tablets By Mouth Twice Daily One Half Hour Before Meals History Medications Xiidra 1gtt both eyes 60units Shaheed Alves, OD 11/07/2017 - 5% Solution twice a day 09/28/2018 Albuterol Sulfate prn Unknown - 09/28/2018 0.63mg/3ML Nebulizer Vital Signs Date Vital Result Comment 11/07/2017 11:34am Intraocular Pressure Right Eye 17 mmHg Intraocular Pressure Left Eye 17 mmHg 09/30/2017 3:23pm Intraocular Pressure Right Eye 19 mmHg Intraocular Pressure Left Eye 19 mmHg 01/31/2014 8:29am Intraocular Pressure Right Eye 14 mmHg Intraocular Pressure Left Eye 14 mmHg Procedures Date Code Description Status 11/07/2017 71942 Refraction Completed 11/07/2017 28455 Eye Exam Est Intermediate Completed 09/30/2017 43476 Oct Retina Completed 09/30/2017 17073 Visual Field Exam Extended, Unilateral Or Bilateral Completed 09/30/2017 33068 Eye Exam Est Intermediate Completed 08/11/2017 51697 Correct Trichiasis, Epilation By Forceps Only Completed 10/02/2016 302 Contact Lens Fit $75 Completed 10/02/2016 39512 Eye Exam Est Intermediate Completed 10/02/2016 52366 Fundus Photography W/Interpretation & Report Completed 09/23/2016 43680 Refraction Completed 09/28/2015 10156 Oct Retina Completed 09/28/2015 07274 Visual Field Exam Extended, Unilateral Or Bilateral Completed 09/28/2015 46671 Eye Exam Est Intermediate Completed 09/28/2015 301 Contact Lens Fit $25 Completed 08/01/2014 44644 Visual Field Exam Extended, Unilateral Or Bilateral Completed 08/01/2014 88507 Eye Exam Est Intermediate Completed 01/31/2014 24713 Eye Exam Est Comprehensive Completed 01/31/2014 45485 Oct Retina Completed 11/13/2010 42610 Fundus Photography W/Interpretation & Report Completed 11/13/2010 22210 Visual Field Exam Extended, Unilateral Or Bilateral Completed 11/13/2010 71105 Eye Exam Est Comprehensive Completed 03/27/2010 63238 Fundus Photography W/Interpretation & Report Completed 03/27/2010 97405 Eye Exam Est Intermediate Completed 01/31/2010 26258 Ophthalmoscopy Subsequent Completed 01/31/2010 44493 Eye Exam Est Intermediate Completed 09/13/2009 62257 Eye Exam Est Comprehensive Completed 09/13/2009 24464 Visual Field Exam Extended, Unilateral Or Bilateral Completed 09/13/2009 76462 Ophthalmoscopy Subsequent Completed 01/30/2009 56360 Visual Field Exam Extended, Unilateral Or Bilateral Completed 01/30/2009 31984 Eye Exam Est Intermediate Completed 11/29/2008 45547 Fundus Photography W/Interpretation & Report Completed 11/29/2008 28647 Ophthalmoscopy Initial Completed 11/29/2008 38013 Eye Exam Est Comprehensive Completed 11/01/2008 65844 Eye Exam New Intermediate Completed Encounters Type Date Location Provider Dx Diagnosis Office Visit 08/11/2017 Main Office Shaheed Alves, OD 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
[2018-10-03 06:29] LABS: ABS Basophils 0.1 10^3/ul (0-0.2); ABS Eosinophils 0.1 10^3/ul (0-0.6); ABS Lymphocytes 1.4 10^3/ul (1.0-4.8); ABS Monocytes 0.5 10^3/ul (0-0.8); ABS Neutrophils 4.2 10^3/ul (1.5-7.7); Eosinophil % 0.9 %; Hematocrit 36 % (35-47); Hemoglobin 12.2 g/dL (12.0-16.0); Lymphocyte % 23.1 %; Mean Corpuscular HGB Conc 34 g/dL (31-36); Mean Corpuscular Hemoglobin 30 pg (27-31); Mean Corpuscular Volume 89 fL (80-97); Mean Platelet Volume 7.1 fL (7.4-10.4); Nucleated Red Blood Cells % 0.1; Platelet Count 276 10^3/uL (150-450); Red Blood Count 4.05 10^6 /uL (3.70-4.87); Red Cell Distribution Width 14 % (10-15); White Blood Count 6.3 10^3/uL (3.5-10.8)
[2018-10-03 06:44] LABS: Albumin 4.7 g/dL (3.2-5.2); Albumin/Globulin Ratio 1.7 (1-3); BUN/Creatinine Ratio 22.1 (8-20); Calcium 9.7 mg/dL (8.6-10.3); EGFR African American 94.9 (>60); EGFR Non-African American 78.4 (>60); Globulin 2.8 g/dL (2-4); Potassium 3.8 mmol/L (3.5-5.0); Total Bilirubin 0.4 mg/dL (0.2-1.0); Total Protein 7.5 g/dL (6.4-8.9)
--- NOTE | 2018-10-03 07:24 | ED ---
Abdominal Pain/Female - HPI Summary HPI Summary: This patient is a 52-year-old female with a history of anemia, Crohns and gastric ulcer presenting to the ED 2 days s/p colonoscopy with Dr. Yan with LLQ pain described as sharp radiating to the L upper leg and L flank. She states on the day of the colonoscopy, she felt well. Today immediately following vomiting yesterday, she developed LLQ pain which has been worsening. She is also endorsing nausea without vomiting. Denies any fevers, sweats, chills. Pain is rated an 8/10. She states she has had 3 colonoscopies in the past, with no complications/side effects. 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 Denies cough or congestion. Denies any epigastric discomfort, however also had an endoscopy same day as colonoscopy. She states she is had frequent burps, but continues to pass gas. Denies any dizziness or syncopal episodes. - History of Current Complaint Chief Complaint: EDAbdPain Stated Complaint: ABD PAIN PER PT Time Seen by Provider: 10/03/18 06:07 Hx Obtained From: Patient ?: No Onset/Duration: Sudden Onset Timing: Constant Severity Initially: Moderate Severity Currently: Moderate Pain Intensity: 9 Pain Scale Used: 0-10 Numeric Location: Discrete At: LLQ Radiates: Yes Radiates to: Other - left upper leg/groin and L back Aggravating Factor(s): Nothing Alleviating Factor(s): Nothing Associated Signs and Symptoms: Positive: Negative - Risk Factors Ectopic Risk Factor: Negative Ovarian Torsion Risk Factor: Reproductive Age Allergies/Adverse Reactions: Allergies Allergy/AdvReac Type Severity Reaction Status Date / Time levofloxacin [From Levaquin] Allergy Anaphylatic Verified 10/03/18 06:34 Shock omeprazole Allergy Anaphylatic Verified 10/03/18 06:34 Shock vancomycin AdvReac Hives Verified 10/03/18 06:34 PMH/Surg Hx/FS Hx/Imm Hx Previously Healthy: Yes Endocrine/Hematology History: Reports: Hx Blood Disorders - mild von willebrands , Hx Systemic Lupus Erythematosus Denies: Hx Diabetes Cardiovascular History: Denies: Hx Congestive Heart Failure, Hx Hypertension, Hx Pacemaker/ICD Respiratory History: Reports: Hx Asthma - mild seasonal, Hx Sleep Apnea GI History: Reports: Hx Crohn's Disease, Other GI Disorders - CROHN'S DISEASE History: Denies: Hx Dialysis, Hx Renal Disease Musculoskeletal History: Reports: Hx Arthritis, Hx Rheumatoid Arthritis, Other Musculoskeletal History - RA Sensory History: Denies: Hx Hearing Aid Neurological History: 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 Psychiatric History: Denies: Hx Panic Disorder - Cancer History Hx Chemotherapy: No - Surgical History Surgery Procedure, Year, and Place: ovarian cyst, lypomia removal, rheumatoid nodule right foot. BILATERAL CARPAL TUNNEL. 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 immunosuppresents for RA per pt Denies: Traveled Outside the [place] in Last 30 Days - Family History Known Family History: Negative: Blood Disorder - Social History Occupation: Employed Full-time Lives: With Family Alcohol Use: None Alcohol Amount: 2-3 drinks/year Hx Substance Use: No Substance Use Type: Reports: None Hx Tobacco Use: No Smoking Status (MU): Never Smoked Tobacco Review of Systems Constitutional: Negative Negative: Fever, Chills, Fatigue, Skin Diaphoresis Negative: Palpitations, Chest Pain Negative: Shortness Of Breath, Cough Positive: Abdominal Pain, Nausea, Other - darkened stools - fully formed. Negative: Vomiting, Diarrhea Genitourinary: Negative Positive: no symptoms reported, see HPI Negative: Arthralgia, Myalgia Negative: Rash Neurological: Negative All Other Systems Reviewed And Are Negative: Yes Physical Exam Triage Information Reviewed: Yes Vital Signs On Initial Exam: Initial Vitals Temp Pulse Resp BP Pulse Ox 98.8 F 95 20 173/120 100 10/03/18 06:02 10/03/18 06:02 10/03/18 06:02 10/03/18 06:02 10/03/18 06:02 Vital Signs Reviewed: Yes Appearance: Positive: Well-Appearing, Well-Nourished Skin: Positive: Warm, Skin Color Reflects Adequate Perfusion Head/Face: Positive: Normal Head/Face Inspection Eyes: Positive: EOMI, SHAYY, Conjunctiva Clear Neck: Positive: Supple, No Lymphadenopathy Respiratory/Lung Sounds: Positive: Clear to Auscultation, Breath Sounds Present Cardiovascular: Positive: RRR, Pulses are Symmetrical in both Upper and Lower Extremities Abdomen Description: Positive: Other: - tenderness to the LLQ Bowel Sounds: Positive: Present Musculoskeletal: Positive: Normal, Strength/ROM Intact Neurological: Positive: Sensory/Motor Intact, Alert, Oriented to Person Place, Time, Speech Normal Psychiatric: Positive: Normal, Affect/Mood Appropriate AVPU Assessment: Alert Diagnostics - Vital Signs Vital Signs Temp Pulse Resp BP Pulse Ox 10/03/18 07:00 69 98 10/03/18 06:51 74 100 10/03/18 06:49 99.3 F 10/03/18 06:43 67 128/83 100 10/03/18 06:26 16 10/03/18 06:02 98.8 F 95 20 173/120 100 - Laboratory Lab Results: Lab Results 10/03/18 10/03/18 Range/Units 06:20 06:20 WBC 6.3 (3.5-10.8) 10^3/uL RBC 4.05 (3.70-4.87) 10^6 /uL Hgb 12.2 (12.0-16.0) g/dL Hct 36 (35-47) % MCV 89 (80-97) fL MCH 30 (27-31) pg MCHC 34 (31-36) g/dL RDW 14 (10-15) % Plt Count 276 (150-450) 10^3/uL MPV 7.1 L (7.4-10.4) fL Neut % (Auto) 66.2 % Lymph % (Auto) 23.1 % Henry % (Auto) 8.8 % Eos % (Auto) 0.9 % Baso % (Auto) 1.0 % Absolute Neuts (auto) 4.2 (1.5-7.7) 10^3/ul Absolute Lymphs (auto) 1.4 (1.0-4.8) 10^3/ul Absolute Monos (auto) 0.5 (0-0.8) 10^3/ul Absolute Eos (auto) 0.1 (0-0.6) 10^3/ul Absolute Basos (auto) 0.1 (0-0.2) 10^3/ul Absolute Nucleated RBC 0.0 10^3/ul Nucleated RBC % 0.1 Sodium 137 (135-145) mmol/L Potassium 3.8 (3.5-5.0) mmol/L Chloride 104 (101-111) mmol/L Carbon Dioxide 22 (22-32) mmol/L Anion Gap 11 (2-11) mmol/L BUN 17 (6-24) mg/dL Creatinine 0.77 (0.51-0.95) mg/dL Est GFR ( Amer) 94.9 (>60) Est GFR (Non-Af Amer) 78.4 (>60) BUN/Creatinine Ratio 22.1 H (8-20) Glucose 106 H (70-100) mg/dL Calcium 9.7 (8.6-10.3) mg/dL Total Bilirubin 0.40 (0.2-1.0) mg/dL AST 13 (13-39) U/L ALT 12 (7-52) U/L Alkaline Phosphatase 56 (34-104) U/L Total Protein 7.5 (6.4-8.9) g/dL Albumin 4.7 (3.2-5.2) g/dL Globulin 2.8 (2-4) g/dL Albumin/Globulin Ratio 1.7 (1-3) Result Diagrams: 10/03/18 06:20 10/03/18 06:20 Lab Statement: Any lab studies that have been ordered have been reviewed, and results considered in the medical decision making process. Abdominal Pain Fem Course/Dx - Course Course Of Treatment: Dr. Jack called this morning to make aware of this patient. 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 CT abd/pelvis with oral/IV contrast ordered as well as labs. She was given 2mg morphine for pain, but did not tolerate well. Zofran with good effect. She was given Toradol as well as simethicone. Patient continues to have LLQ pain. CT abdomen/pelvis shows no acute findings with moderate amount of stool in the colon. Discussed case with Dr. Jack. Transvaginal US obtained as patient continues to have LLQ pain without evidence of other pathology obtained from CT. Labs obtained and are unremarkable. Patient continues to remain afebrile with good vital signs. She had one bowel movement while in the ED and was normal per patient. US transvaginal obtained to assess further workup of the LLQ pain. This showed no acute findings. UA obtained which shows 2+ RBCs with no leukocytes with wbc's. Discussed at length with the patient regarding inpatient treatment with pain medication or outpatient with follow-up to GI. Patient states she'll follow-up with GI as her pain has improved. She is encouraged simethicone as well as Maalox. She is encouraged to return to the ED if she has any worsening symptoms. - Diagnoses Differential Diagnosis: Positive: Other - gas, LLQ pain, colonoscopy side effect Provider Diagnoses: Abdominal pain Discharge - Sign-Out/Discharge Documenting (check all that apply): Patient Departure Patient Received Moderate/Deep Sedation with Procedure: No - Discharge Plan Condition: Stable Disposition: HOME Patient Education Materials: Simethicone (By mouth), Colonoscopy (DC) Referrals: Sidney Alonso MD [Primary Care Provider] - Additional Instructions: Pleaes follow up with Dr. Yan's office on Friday Continue with simethicone up to 4 times daily Small amounts at a time Maalox plus may help your symptoms Heating pads to the area Rest - Billing Disposition and Condition Condition: STABLE Disposition: Home
[2018-10-03 10:21] VITALS: BP 137/71
[2018-10-03 10:41] LABS: Urine Appearance Clear; Urine Bacteria Absent (Absent); Urine Bilirubin Negative (Negative); Urine Blood 2+ (Negative); Urine Color Straw; Urine Glucose Negative (Negative); Urine Ketones Negative (Negative); Urine Nitrite Negative (Negative); Urine Protein Negative (Negative); Urine Red Blood Cell 2+(6-10/hpf) (Absent); Urine Specific Gravity 1.032 (1.010-1.030); Urine Squamous Epithelial Cell Present (Absent); Urine Urobilinogen Negative (Negative); Urine White Blood Cell Trace(0-5/hpf) (Absent)
== END | disposition home or self-care (01) ==
LOC: ED 05:56
DX: R10.32 Left lower quadrant pain (principal); D25.9 Leiomyoma of uterus, unspecified; R11.0 Nausea; D68.0 Von Willebrand disease; M32.9 Systemic lupus erythematosus, unspecified; K50.90 Crohn's disease, unspecified, without complications; M06.9 Rheumatoid arthritis, unspecified; Z88.1 Allergy status to other antibiotic agents; Z88.8 Allergy status to other drugs, medicaments and biological substances
CPT/HCPCS: 36415; 74177; 76830; 80053; 81003; 81015; 85025; 87077; 87086; 87186; 96374; 96375; 99285; A9270-GY; J1885; J2270; J2405

== ENCOUNTER 2018-12-07 18:13 | Emergency (ER) | payer MEDICARE, MEDICAID ==
--- OUTSIDE RECORDS SUMMARY | 2018-12-07 18:53 | XMS REPORT | Continuity of Care Document ---
:1965 External Reference #:[id number] Author Name Marcela Booker M.D. (transmitted by agent of provider Leila Morocho) Address [address] [place] [address] Care Team Providers Name Role Phone Sidney Alonso MD - Family Medicine Care Team Information Advanced Analytics Associate Problems Active Problems Provider Date Localized, primary osteoarthritis Marcela Booker M.D. Onset: 10/24/2017 Localized, primary osteoarthritis of the pelvic Marcela Booker M.D. Onset: region and thigh Social History Type Date Description Comments Sex Unknown ETOH Use Denies alcohol use Tobacco Use Start: Unknown Patient has never smoked Recreational Drug Use Denies Drug Use Smoking Status Reviewed: 10/12/18 Patient has never smoked Exercise Type/Frequency Exercises regularly Allergies, Adverse Reactions, Alerts Active Allergies Reaction Severity Comments Date Sulfa Antibiotics neuropathy 01/21/2017 Vancomycin hives 01/21/2017 Dairy 01/21/2017 Medications Active Medications SIG Qnty Indications Ordering Date Provider Methylprednisolone medrol dose 1units M06.9 Marcela Booker, 10/12/2018 4mg TBPK pack - take as M.D. directed Hydroxychloroquine take one tablet Unknown Sulfate by mouth twice 200mg Tablets a day Meloxicam take one tab Unknown 7.5mg Tablets twice daily as needed for pain, avoid other nsaids Epipen 2-Arnie use as directed Unknown 0.3mg/0.3ML Solution Auto-Inject Xanax by mouth two Unknown 0.5mg Tablets times a day as needed Ventolin HFA 2 puffs by Unknown 108(90Base) mouth four mcg/Act Aerosol times a day as needed Tumeric daily Unknown Cary 3 2 tabs daily Unknown 1200mg Capsules Glucosamine-Chondroitin 3 tabs by mouth Unknown daily Capsules Albuterol Sulfate Unknown Lansoprazole Unknown Medications Administered in Office Medication SIG Qnty Indications Ordering Provider Date Depomedrol 40MG Marcela Booker M.D. 09/14/2018 Injection Synvisc Or Synvisc-One Injection 1 Marcela Booker M.D. 11/05/2017 MG Injection Depomedrol 80MG Chester Riley M.D. 09/05/2010 Injection Immunizations Description No Information Available Vital Signs Date Vital Result Comment 10/12/2018 1:13pm Height 68 inches 5'8" Weight 136.00 lb BP Systolic 126 mmHg BP Diastolic 76 mmHg Body Temperature 97.8 F BMI (Body Mass Index) 20.7 kg/m2 09/14/2018 1:48pm Height 68 inches 5'8" Weight 140.00 lb BP Systolic 120 mmHg BP Diastolic 72 mmHg Body Temperature 99.5 F BMI (Body Mass Index) 21.3 kg/m2 Results Test Date Facility Test Result H/L Range Note Laboratory test 10/02/2018 [facility] Cytology SEE RESULT [address] [address] [phone] Laboratory test 10/01/2018 [facility] Surgical SEE RESULT [address] [place] [address] [phone] Xray 09/14/2018 Assistant Distribution Manager In House Inj/Aspir Major <pending> JT Or Kenrick W/ US 1 SEE RESULT BELOW Name: NAKIA TAY : [address]: William Reaves MD Acct: [id number] Unit: [id number] AGE: 52 Location: SP Re10/02/18 SEX: F Status: REG REF SPEC: [id number] SUSANA: 10/02/18-[address] [facility] [address]: William Reaves MD REQ: [id number] RECD: 10/02/18 STATUS: OLIVIA AGUAYO DR: Easton Kumar MD _ ORDERED: FNA-IMG GUID BX, CYTO ADEQ-1ST P FINAL DIAGNOSIS Thyroid, right, Ultrasound guided, fine needle aspiration: -- Benign thyroid nodule, colloid/hyperplastic ([place] class II). The specimen demonstrates abundant watery colloid, an abundant amount of benign appearing follicular epithelium arranged in uniform sheets, medium sized follicles and only occasional small groups. No features of papillary carcinoma are seen. In this clinical setting the risk of malignancy is less than 3%. Clinical management of this thyroid nodule should be based on clinical and radiographic features as well as the above. THYROID RIGHT - US GUIDED RIGHT THYROID FINE NEEDLE ASPIRATION CLINICAL HISTORY 1.2 x 0.8 x 0.8 cm right inferior pole thyroid nodule. CONTINUED ON NEXT PAGE DEPARTMENT OF PATHOLOGY, [address] [place] [address] Ambrosio Palmer M.D. Director [facility] # [id number] RUN DATE: 10/05/18 [facility] LAB LIVE PAGE 2 Patient: NAKIA TAY [id number] (Continued) IMMEDIATE INTERPRETATION (Continued) IMMEDIATE INTERPRETATION Pass 1-adequate. GROSS DESCRIPTION Ultrasound guided, fine needle aspiration x 1 pass with 1 alcohol fixed slide (s). Signed by and Reported on: Ambrosio Palmer MD 07/19 1435 END OF REPORT DEPARTMENT OF PATHOLOGY, [address] [place] [address] Ambrosio Palmer M.D. Director [facility] # [id number] 2 SEE RESULT BELOW Name: NAKIA TAY : [address]: Juvenal Yan DO Acct: [id number] Unit: [id number] AGE: 52 Location: ENDO Re10/01/18 SEX: F Status: REG REF SPEC: [id number] SUSANA: 10/01/[address]: Juvenal Yan DO REQ: [id number] RECD: 10/01/18 STATUS: OLIVIA AGUAYO DR: Sidney Reaves MD _ ORDERED: LEVEL 4/7 FINAL DIAGNOSIS 1. Duodenum, biopsy: -- Benign small intestinal mucosa with no significant pathologic abnormalities. -- No evidence of villous blunting or increased intraepithelial lymphocytes. 2. Stomach, body, biopsy: -- Body-type gastric mucosa with mild chronic gastritis. -- No evidence of Helicobacter organisms. 3. Esophagus, distal, biopsy: -- Benign squamous and columnar-type mucosa with chronic inflammation. -- Intestinal metaplasia is absent. -- Dysplasia is absent. 4. Terminal ileum, biopsy: -- Benign small intestinal mucosa with no significant pathologic abnormalities. 5. Colon, right, biopsy: -- Benign colonic mucosa with no significant pathologic abnormalities. 6. Colon, left, biopsy: -- Benign colonic mucosa with no significant pathologic abnormalities. 7. Colon, rectum, biopsy: -- Hyperplastic polyp. CONTINUED ON NEXT PAGE DEPARTMENT OF PATHOLOGY, [address] [place] [address] Ambrosio Palmer M.D. Director [facility] # [id number] RUN DATE: 10/02/18 [facility] LAB LIVE PAGE 2 Patient: NAKIA TAY [id number] (Continued) CLINICAL HISTORY (Continued) CLINICAL HISTORY Ulcer; crohn???s disease PRE-OPERATIVE DIAGNOSIS Villous blunting POST-OPERATIVE DIAGNOSIS EGD: esophagus - mild gastroesophageal variable less than 1 cm; biopsy; 2 cm hiatal hernia; gastric - antral gastritis mild; biopsy and RA test; no ulcer; duodenum - blunted biopsy; colonoscopy: to terminal ileum; biopsy; biopsy polypectomy rectal polyp GROSS DESCRIPTION 1. The specimen is received in formalin labeled, Duodenal Biopsies, and consists of a 1.1 by up to 0.3 x 0.2 cm aggregate of vanessa-brown irregular to polypoid soft tissue fragments, which is entirely submitted in one cassette. 2. The specimen is received in formalin labeled, Gastric Body Biopsy, and consists of a 0.6 x 0.6 x 0.2 cm aggregate of vanessa-brown irregular to polypoid soft tissue fragments, which is entirely submitted in one cassette. 3. The specimen is received in formalin labeled, Distal Esophagus Biopsies , and consists of two vanessa-white irregular to polypoid soft tissue fragments measuring 0.4 x 0.3 x 0.2 cm and 0.8 x 0.3 x 0.1 cm, which are entirely submitted in one cassette. 4. The specimen is received in formalin labeled, Terminal Ileum Biopsies, and consists of two vanessa-white irregular to polypoid soft tissue fragments, which are entirely submitted in one cassette. 5. The specimen is received in formalin labeled, Right Colon Biopsies, and consists of three vanessa-white to red irregular to polypoid soft tissue fragments ranging from 0.4 x 0.3 x 0.2 cm to 1.1 x 0.3 x 0.1 cm, which are entirely submitted in one cassette. 6. The specimen is received in formalin labeled, Left Colon Biopsies, and consists of two vanessa-pink irregular to polypoid soft tissue fragments measuring 0.4 x 0.3 x 0.2 cm and 0.5 x CONTINUED ON NEXT PAGE DEPARTMENT OF PATHOLOGY, [address] [place] [address] Ambrosio Palmer M.D. Director [facility] # [id number] RUN DATE: 10/02/18 [facility] LAB LIVE PAGE 3 Patient: NAKIA TAY [id number] (Continued) GROSS DESCRIPTION (Continued) 0.3 x 0.2 cm, which are entirely submitted in one cassette. 7. The specimen is received in formalin labeled, Biopsy Rectal Polyp, and consists of a 0.7 x 0.3 x 0.2 cm speckled vanessa-pink irregular to polypoid soft tissue fragment, which is entirely submitted in one cassette. Signed by and Reported on: Denisse Rodriguez MD 10/02/18 1351 END OF REPORT DEPARTMENT OF PATHOLOGY, [address] [place] [address] Ambrosio Palmer M.D. Director [facility] # [id number] Procedures Date Code Description Status 10/12/201868774 Inject/Drain Joint/Bursa Major W/O US Completed 09/14/2018 04910 Inj/Aspir Major JT Or Bursa W/ US Completed Medical Devices Description No Information Available Encounters Type Date Location Provider Dx Diagnosis Office Visit 09/14/2018 Orthopedic Marcela Booker, M25.562 Pain in left knee 1:[facility] M25.462 Effusion, left knee M17.12 Unilateral primary osteoarthritis, left knee M06.9 Rheumatoid arthritis, unspecified M32.10 Systemic lupus erythematosus, organ or system involv unsp M79.7 Fibromyalgia M25.552 Pain in left hip M16.12 Unilateral primary osteoarthritis, left hip Assessments Date Code Description Provider 10/12/2018 M25.562 Pain in left knee Marcela Booker M.D. 10/12/2018 M25.462 Effusion, left knee Marcela Booker M.D. 10/12/2018 M17.12 Unilateral primary osteoarthritis, left knee Marcela Booker M.D. 10/12/2018 M06.9 Rheumatoid arthritis, unspecified Marcela Booker M.D. 10/12/2018 M32.10 Systemic lupus erythematosus, organ or system Marcela Booker M.D. involvement un 10/12/2018 M79.7 Fibromyalgia Marcela Booker M.D. 09/14/2018 M25.562 Pain in left knee Marcela Booker M.D. 09/14/2018 M25.462 Effusion, left knee Marcela Booker M.D. 09/14/2018 M17.12 Unilateral primary osteoarthritis, left knee Marcela Booker M.D. 09/14/2018 M06.9 Rheumatoid arthritis, unspecified Marcela Booker M.D. 09/14/2018 M32.10 Systemic lupus erythematosus, organ or system Marcela Booker M.D. involvement un 09/14/2018 M79.7 Fibromyalgia Marcela Booker M.D. 09/14/2018 M25.552 Pain in left hip Marcela Booker M.D. 09/14/2018 M16.12 Unilateral primary osteoarthritis, left hip Marcela Booker M.D. Plan of Treatment 10/12/2018 - Marcela Booker M.D.M25.562 Pain in left kneeFollow up:Follow up: As iwvbupR85.462 Effusion, left kneeM17.12 Unilateral primary osteoarthritis, left kneeM06.9 Rheumatoid arthritis, unspecifiedNew Medication: Methylprednisolone 4 mg - medrol dose pack - take as zqidkrfiP92.10 Systemic lupus erythematosus, organ or system involvement unM79.7 Fibromyalgia Functional Status Description No Information Available Mental Status Description No Information Available Referrals Description No Information Available
--- OUTSIDE RECORDS SUMMARY | 2018-12-07 18:53 | XMS REPORT | Continuity of Care Document ---
:1965 External Reference #:[id number] Author Name Juvenal YanDO Address [facility] [place] [address] Care Team Providers Name Role Phone Sidney Alonso MD - Family Medicine Care Team Information Administrative Support [employer]oc Problems Active Problems Provider Date Crohn's disease [...] Qnty Indications Ordering Date Provider Hydroxychloroquine Sulfate Sidney Alonso, 200mg MD Tablets Ventolin HFA prn Unknown 108(90Base) mcg/Act Aerosol Meloxicam prn Unknown 7.5mg Tablets Epipen 2-Arnie use as directed Unknown 0.3mg/0.3ML Solution Auto-Inject History Medications Colyte With Flavor by mouth as 4000ml Juvenal Yan DO 08/28/2018 - Packs directed 10/05/2018 240gm Solution Rec Immunizations Description No Information Available Vital Signs Date Vital Result Comment 08/28/2018 3:09pm Height 68 inches 5'8" Weight 144.00 lb BP Systolic 131 mmHg BP Diastolic 93 mmHg Heart Rate 76 /min BMI (Body Mass Index) 21.9 kg/m2 07/22/2013 2:37pm Height 68 inches 5'8" Weight 154.00 lb BP Systolic 122 mmHg BP Diastolic 80 mmHg Heart Rate 72 /min BMI (Body Mass Index) 23.4 kg/m2 Results Test Date Facility Test Result H/L Range Note Laboratory test 10/01/2018 [facility] [place]otest SEE RESULT 1 finding BELOW Laboratory test 10/01/2018 [facility] [place] Surgical SEE RESULT 2 finding Pathology BELOW CBC Auto Diff 08/28/2018 [facility] White Blood 7.9 10^3/uL Normal 3.5-10.8 Count Red Blood Count 4.34 10^6/uL Normal 3.70-4.87 Hemoglobin 13.4 g/dL Normal 12.0-16.0 Hematocrit 39 % Normal 35-47 Mean Corpuscular Volume 91 fL Normal 80-97 Mean Corpuscular Hemoglobin 31 pg Normal 27-31 Mean Corpuscular HGB Conc 34 g/dL Normal 31-36 Red Cell Distribution Width 14 % Normal 10-15 Platelet Count 340 10^3/uL Normal 150-450 Mean Platelet Volume 7.7 fL Normal 7.4-10.4 Abs Neutrophils 5.5 10^3/uL Normal 1.5-7.7 Abs Lymphocytes 1.6 10^3/uL Normal 1.0-4.8 Abs Monocytes 0.6 10^3/uL Normal 0-0.8 Abs Eosinophils 0.2 10^3/uL Normal 0-0.6 Abs Basophils 0.0 10^3/uL Normal 0-0.2 Abs Nucleated RBC 0.0 10^3/uL Granulocyte % 69.2 % Lymphocyte % 20.4 % Monocyte % 7.8 % Eosinophil % 2.0 % Basophil % 0.6 % Nucleated Red Blood Cells % 0.1 Comp Metabolic Panel 08/28/2018 [facility] [place] Sodium 139 mmol/L Normal 135-145 Potassium 5.0 mmol/L Normal 3.5-5.0 Chloride 104 mmol/L Normal 101-111 Co2 Carbon Dioxide 28 mmol/L Normal 22-32 Anion Gap 7 mmol/L Normal 2-11 Glucose 96 mg/dL Normal 70-100 Blood Urea Nitrogen 13 mg/dL Normal 6-24 Creatinine 0.67 mg/dL Normal 0.51-0.95 BUN/Creatinine Ratio 19.4 Normal 8-20 Calcium 10.3 mg/dL Normal 8.6-10.3 Total Protein 7.5 g/dL Normal 6.4-8.9 Albumin 4.8 g/dL Normal 3.2-5.2 Globulin 2.7 g/dL Normal 2-4 Albumin/Globulin Ratio 1.8 Normal 1-3 Total Bilirubin 0.30 mg/dL Normal 0.2-1.0 Alkaline Phosphatase 56 U/L Normal 34-104 Alt 15 U/L Normal 7-52 Ast 16 U/L Normal 13-39 Egfr Non- 92.1 >60 Egfr 111.4 >60 3 Laboratory test finding 08/28/2018 [facility] Erythrocyte Sed Rate 10 mm/Hr Normal 0-29 4 C Reactive Protein 1.87 mg/L Normal <8.01 5 1 SEE RESULT BELOW Name: NAKIA ZHOU : [address]: Juvenal Yan DO Acct: [id number] Unit: [id number] AGE: 52 Location: ENDO Re10/01/18 SEX: F Status: REG REF SPEC: [id number] SUSANA: 10/01/18-[address]: Juvenal Yan DO REQ: [id number] RECD: 10/01/183 STATUS: JANAE AGUAYO DR: Sidney Alonso MD _ SOURCE: GAS ANTRUM SPDESC: ORDERED: Clotest Procedure Result Reported Site Clotest Final 10/02/18- 732 ML Clotest Negative * ML - Main Lab . END OF REPORT DEPARTMENT OF PATHOLOGY, [address] [place] [address] Ambrosio Palmer M.D. Director [facility] # [id number] SEE RESULT BELOW Name: NAKIA ZHOU : [address]: Juvenal Yan DO Acct: [id number] Unit: [id number] AGE: 52 Location: ENDO Re10/01/18 SEX: F Status: REG REF SPEC: [id number] SUSANA: 10/01/[address]: Juvenal Yan DO REQ: [id number] RECD: 10/01/18 STATUS: JANAE AGUAYO DR: Sidney Alonso MD _ [facility]: Clotest Procedure Result Reported Site Clotest Final 10/02/18732 ML Clotest Negative * ML - Main Lab . END OF REPORT DEPARTMENT OF PATHOLOGY, [address] [place] [address] Ambrosio Palmer M.D. Director [facility] # [id number] 2 SEE RESULT BELOW Name: NAKIA ZHOU Jacquelyn : [address]: Juvenal Yan DO Acct: [id number] Unit: [id number] AGE: 52 Location: ENDO Re10/01/18 SEX: F Status: REG REF SPEC: [id number] SUSANA: 10/01/[address]: Juvenal Yan DO REQ: [id number] RECD: 10/01/18 STATUS: OLIVIA AGUAYO DR: Sidney [...] CONTINUED ON NEXT PAGE DEPARTMENT OF PATHOLOGY, [address] [place] [address] Ambrosio Palmer M.D. Director [facility] # [id number] RUN DATE: 10/02/18 [facility] LAB LIVE PAGE 2 Patient: NAKIA ZHOU [id number] (Continued) CLINICAL HISTORY (Continued) CLINICAL HISTORY Ulcer; [...] CONTINUED ON NEXT PAGE DEPARTMENT OF PATHOLOGY, [address] [place] [address] Ambrosio Palmer M.D. Director [facility] # [id number] RUN DATE: 10/02/18 [facility] LAB LIVE PAGE 3 Patient: NAKIA ZHOU [id number] (Continued) GROSS DESCRIPTION (Continued) 0.3 x 0.2 [...] 1351 END OF REPORT DEPARTMENT OF PATHOLOGY, [address] [place] [address] Ambrosio Palmer M.D. Director [facility] # [id number] SEE RESULT BELOW Name: NAKIA ZHOU : [address]: Juvenal Yan DO Acct: [id number] Unit: [id number] AGE: 52 Location: ENDO Re10/01/18 SEX: F Status: REG REF SPEC: [id number] SUSANA: 10/01/1836 [facility] [place] DR: Juvenal Yan DO REQ: [id number] RECD: 10/01/18 STATUS: OLIVIA AGUAYO DR: Sidney [...] CONTINUED ON NEXT PAGE DEPARTMENT OF PATHOLOGY, [address] [place] [address] Ambrosio Palmer M.D. Director [facility] # [id number] RUN DATE: 10/02/18 [facility] LAB LIVE PAGE 2 Patient: NAKIA ZHOU [id number] (Continued) CLINICAL HISTORY (Continued) CLINICAL HISTORY Ulcer; [...] CONTINUED ON NEXT PAGE DEPARTMENT OF PATHOLOGY, [address] [place] [address] Ambrosio Palmer M.D. Director [facility] # [id number] RUN DATE: 10/02/18 [facility] LAB LIVE PAGE 3 Patient: NAKIA ZHOU [id number] (Continued) GROSS DESCRIPTION (Continued) 0.3 x 0.2 [...] 1351 END OF REPORT DEPARTMENT OF PATHOLOGY, [address] [place] [address] Ambrosio Palmer M.D. Director [facility] # [id number] SEE RESULT BELOW Name: GISELLERONANNAKIA : [address]: Juvenal Yan DO Acct: [id number] Unit: [id number] AGE: 52 Location: ENDO Re10/01/18 SEX: F Status: REG REF SPEC: [id number] SUSANA: 10/01/18 [facility] [place] DR: Juvenal Yan DO REQ: [id number] RECD: 10/01/182 STATUS: OLIVIA AGUAYO DR: Sidney Reaves MD [...] CONTINUED ON NEXT PAGE DEPARTMENT OF PATHOLOGY, [address] [place] [address] Ambrosio Palmer M.D. Director [facility] # [id number] RUN DATE: 10/02/18 [facility] LAB LIVE PAGE 2 Patient: NAKIA ZHOU [id number] (Continued) CLINICAL HISTORY (Continued) CLINICAL HISTORY Ulcer; [...] CONTINUED ON NEXT PAGE DEPARTMENT OF PATHOLOGY, [address] [place] [address] Ambrosio Palmer M.D. Director [facility] # [id number] RUN DATE: 10/02/18 [facility] LAB LIVE PAGE 3 Patient: NAKIA ZHOU [id number] (Continued) GROSS DESCRIPTION (Continued) 0.3 x 0.2 cm, which are entirely submitted in one cassette. 7. The specimen is received in formalin labeled, Biopsy Rectal Polyp, and consists of a 0.7 x 0.3 x 0.2 cm speckled vanessa-pink irregular to polypoid soft tissue fragment, which is entirely submitted in one cassette. Signed by and Reported on: Denisse Rodriguez MD 10/02/18 1354 END OF REPORT DEPARTMENT OF PATHOLOGY, [address] [place] [address] Ambrosio Palmer M.D. Director [facility] # [id number] 3 Because ethnic data is not always readily [...] 15-29 5 Kidney failure <15 (or dialysis) 4 [id number] Procedures Description No Information Available Medical Devices Description No Information Available Encounters Type Date Location Provider Dx Diagnosis Office Visit 08/28/2018 Gastroenterology Juvenal Yan, K25.9 Gastric ulcer , 3:15p [facility] DO unsp as acute or chronic, w/o hemor or perf K50.90 Crohn's disease, unspecified, without complications Assessments Date Code Description Provider 08/28/2018 K25.9 Gastric ulcer, unspecified as acute or chronic, Juvenal Lightan, DO without hemorrhage or perforation 08/28/2018 K50.90 Crohn's disease, unspecified, without Juvenal Yuriy, DO complications Plan of Treatment No Information Available Functional Status Description No Information Available Mental Status Description No Information Available Referrals Description No Information Available
--- OUTSIDE RECORDS SUMMARY | 2018-12-07 18:53 | XMS REPORT | Continuity of Care Document ---
:1965 External Reference #:[id number] Author Name Shaheed Alves, OD Address [address] [place] [address] Care Team Providers Name Role Phone Sidney Alonso MD - It Application Support Analyst Care Team Information [employer] Helper Problems Active Problems Provider Date Taking medication Shaheed Sanchez O.D. Onset: 01/31/2014 Vitreous degeneration Shaheed Sanchez O.D. Onset: 01/31/2014 Presbyopia Shahede Sanchez O.D. Onset: 01/31/2014 Social History Type Date Description Comments Sex Unknown ETOH Use Denies alcohol use Tobacco Use Start: Unknown Patient has never smoked Smoking Status Reviewed: 11/18/18 Patient has never smoked Allergies, Adverse Reactions, Alerts Active Allergies Reaction Severity Comments Date Seasonal 01/31/2014 Vancomycin 01/31/2014 Levaquin 09/28/2018 Omeprazole 09/28/2018 Medications Active Medications SIG Qnty Indications Ordering Date Provider Fluorometholone 1gtt three 10ml Shaheed Alves 09/28/2018 0.1% Suspension times a day OD both eyes x 1 week, then bid x 3 weeks Alprazolam prn Sidney Alonso MD 0.5mg Tablets T. Meloxicam prn Unknown 15mg Tablets Methylprednisolone (Arnie) prSidney Covington MD 4mg T. Tablets Hydroxychloroquine Sulfate Unknown 200mg Tablets Benzonatate Take 1 Capsule Unknown 200mg Capsules By Mouth Three Times Daily as Needed For Cough Symbicort Inhale 2 Puffs Unknown 160-4.5mcg/Act Aerosol By Mouth Twice Daily With Spacer Famotidine Take 1 Tablet Unknown 40mg Tablets By Mouth Twice Daily One Half Hour Before Meals Immunizations Description No Information Available Vital Signs Date Vital Result Comment 10/19/2018 3:50pm Intraocular Pressure Right Eye 16 mmHg Intraocular Pressure Left Eye 16 mmHg 09/28/2018 10:19am Intraocular Pressure Right Eye 18 mmHg Intraocular Pressure Left Eye 18 mmHg Results Description No Information Available Procedures Date Code Description Status 10/19/2018 72547 Eye Exam Est Intermediate Completed 09/28/2018 21112 Oct Retina Completed 09/28/2018 51865 Eye Exam Est Intermediate Completed Medical Devices Description No Information Available Encounters Description No Information Available Assessments Date Code Description Provider 11/19/2018 H04.123 Dry eye syndrome of bilateral lacrimal glands Shaheed Alves, OD 10/19/2018 H04.123 Dry eye syndrome of bilateral lacrimal glands Shaheed Alves, OD 09/28/2018 Z79.899 Other ocean transportation intermediary (current) drug therapy Shaheed Alves, OD 09/28/2018 H16.223 Keratoconjunctivitis sicca, not specified as Shaheed Alves, OD Sjogren's, bila Plan of Treatment 11/19/2018 - Shaheed Alves, ODH04.123 Dry eye syndrome of bilateral lacrimal glandsFollow up:2 mos dry eye f/u, sooner PRN Functional Status Description No Information Available Mental Status Description No Information Available Referrals Description No Information Available
--- OUTSIDE RECORDS SUMMARY | 2018-12-07 18:53 | XMS REPORT | Continuity of Care Document ---
:1965 External Reference #:[id number] Author Name William Reaves M.D. Address [address] [place] [address] Problems Active Problems Provider Date Herpetic gingivostomatitis William Reaves M.D. Onset: 08/31/2013 Laryngeal spasm William Reaves M.D. Onset: 10/05/2012 Cough variant asthma William Reaves M.D. Onset: 10/05/2012 Social History Type Date Description Comments Sex Unknown Cigarette Use Negative For Current Cigarette Smoker Tobacco Use Start: Unknown Never Smoked Cigarettes Tobacco Use Start: Unknown has never smoked cigars Tobacco Use Start: Unknown has never smoked a pipe Smokeless Tobacco has never used smokeless tobacco ETOH Use Current Alcohol Use Occasionally Tobacco Use Start: Unknown Patient has never smoked Smoking Status Reviewed: 10/11/18 Patient has never smoked Allergies, Adverse Reactions, Alerts Active Allergies Reaction Severity Comments Date Bee Sting 10/05/2012 Vancomycin 10/05/2012 Levofloxacin 09/14/2018 Medications Active Medications SIG Qnty Indications Ordering Date Provider Symbicort 2 puffs 2x a 30.6gm Ruben Vick 09/21/2018 160-4.5mcg/Act day with Denilson Reaves spacer, please M.D. dispense with sacer. Benzonatate take 1 capsue 120caps Ruben Vick 09/21/2018 200mg Capsules by 3 times per santo Reaves for as M.DFerny needed for cough Albuterol HFA 2 puffs every 2 2Inhals Kemal Lopes 10/04/2009 90mcg/Act Aerosol to 4 hours as needed for wheezing Epipen 2-Arnie prn Sidney Alonso MD [place]-3 1 po qd Self Hydroxychloroquine x 2 daily Sidney Alonso MD Sulfate 200mg Tablets Amino Acids Complex daily Shallzac Harjinder Tablets M.D. Ventolin HFA as needed Unknown 108(90Base) mcg/Act Aerosol Meloxicam as needed Shallish, Harjinder 7.5mg Tablets M.D. Lansoprazole Unknown 15mg Capsules DR History Medications Famotidine 1 tab twice a 180tabs R05 William Vikc 09/14/2018 - 40mg day 1/2 hour Mara Reaves 10/11/2018 Tablets before meals Immunizations Description No Information Available Vital Signs Date Vital Result Comment 10/12/2018 3:16pm Weight 148.00 lb Weight 67.133 kg Height 68 inches 5'8" Height in cm's 172.7 cm BMI (Body Mass Index) 22.5 kg/m2 09/14/2018 11:13am Weight 148.00 lb Weight 67.133 kg Height 68 inches 5'8" Height in cm's 172.7 cm BMI (Body Mass Index) 22.5 kg/m2 Results Test Date Facility Test Result H/L Range Note Laboratory test 10/02/2018 [facility] SEE RESULT 1 finding c/o [facility] of Laboratories [place] [address] [phone] Laboratory test 10/01/2018 [facility] SEE RESULT 2 finding c/o Department of Laboratories Pathology BELOW [place], [place] [address] [phone] 1 SEE RESULT BELOW Name: NAKIA TAY : [address]: William Reaves MD Acct: [id number] Unit: [id number] AGE: 52 Location: SP Re10/02/18 SEX: F Status: REG REF SPEC: [id number] SUSANA: 10/02/18-155 [facility] DR: William Reaves MD REQ: [id number] RECD: 10/02/18 STATUS: OLIVIA AGUAYO DR: Easton Kumar MD _ ORDERED: FNA-IMG GUID BX, CYTO ADEQ-1ST P FINAL DIAGNOSIS Thyroid, right, Ultrasound guided, fine needle aspiration: -- Benign thyroid nodule, colloid/hyperplastic ([place] class II). The specimen demonstrates abundant watery [...] CONTINUED ON NEXT PAGE DEPARTMENT OF PATHOLOGY, [address] [place] [address] Ambrosio Palmer M.D. Director [facility] # [id number] RUN DATE: 10/05/18 [facility] LAB LIVE PAGE 2 Patient: NAKIA TAY [id number] (Continued) IMMEDIATE INTERPRETATION (Continued) IMMEDIATE INTERPRETATION Pass 1-adequate. GROSS DESCRIPTION Ultrasound guided, fine needle aspiration x 1 pass with 1 alcohol fixed slide (s). Signed by and Reported on: Ambrosio Palmer MD 07/19 1435 END OF REPORT DEPARTMENT OF PATHOLOGY, [address] [place] [address] Ambrosio Palmer M.D. Director [facility] # [id number] 2 SEE RESULT BELOW Name: NAKIA TAY : [address]: Juvenal Yan DO Acct: [id number] Unit: [id number] AGE: 52 Location: ENDO Re10/01/18 SEX: F Status: REG REF SPEC: [id number] SUSANA: 10/01/[address]: Juvenal Yan DO REQ: [id number] RECD: 10/01/18 STATUS: OLIVIA AGUAYO DR: Sidney [...] CONTINUED ON NEXT PAGE DEPARTMENT OF PATHOLOGY, [address] [place] [address] Ambrosio Palmer M.D. Director [facility] # [id number] RUN DATE: 10/02/18 [facility] LAB LIVE PAGE 2 Patient: NAKIA TAY [id number] (Continued) CLINICAL HISTORY (Continued) CLINICAL HISTORY Ulcer; [...] CONTINUED ON NEXT PAGE DEPARTMENT OF PATHOLOGY, [address] [place] [address] Ambrosio Palmer M.D. Director [facility] # [id number] RUN DATE: 10/02/18 [facility] LAB LIVE PAGE 3 Patient: NAKIA TAY [id number] (Continued) GROSS DESCRIPTION (Continued) 0.3 x 0.2 [...] 1351 END OF REPORT DEPARTMENT OF PATHOLOGY, [address] [place] [address] Ambrosio Palmer M.D. Director [facility] # [id number] Procedures Date Code Description Status 10/12/2018 50621 Fiberoptic Laryngoscopy Completed 09/18/2018 71373 Demonstration/Eval. Of Patient Utilization Of Completed Spacer/Nebulizer 09/18/2018 36700 Bronchospasm Evaluation Completed Medical Devices Description No Information Available Encounters Type Date Location Provider Dx Diagnosis Office Visit 09/21/2018 2:45p [place] 03/03/07 Ruben Fox M.D. K21.9 Gastro-esophageal reflux disease without esophagitis E04.1 Nontoxic single thyroid nodule Office Visit 09/14/2018 11:00a [place] 03/03/07 Ruben Fox M.D. K21.9 Gastro-esophageal reflux disease without esophagitis E04.1 Nontoxic single thyroid nodule Z87.892 Personal history of anaphylaxis Assessments Date Code Description Provider 10/12/2018 E04.1 Nontoxic single thyroid nodule William Reaves M.D. 10/12/2018 R05 Cough William Reaves M.D. 09/21/2018 R05 Cough William Reaves M.D. 09/21/2018 K21.9 Gastro-esophageal reflux disease William Reaves M.D. without esophagitis 09/21/2018 E04.1 Nontoxic single thyroid nodule William Reaves M.D. 09/18/2018 R05 Cough RNS Tests Done 09/14/2018 R05 Cough William Reaves M.D. 09/14/2018 K21.9 Gastro-esophageal reflux disease William Reaves M.D. without esophagitis 09/14/2018 E04.1 Nontoxic single thyroid nodule William Reaves M.D. 09/14/2018 Z87.892 Personal history of anaphylaxis William Reaves M.D. Plan of Treatment 10/12/2018 - William Reaves M.D.E04.1 Nontoxic single thyroid [id number] CoughComments:The patient returns today for a nasolaryngoscopy for her chronic cough. She had her esophagoscopy and she has some inflammation on her biopsies. She is on the Symbicort but has only been on that sinceJuly 22. It takes a while for that to really work. Her chest X-ray that I had her have was normal. Her PFT was normal. There may be some evidence of laryngopharyngeal reflux on her nasolaryngoscopy butit is not definitive. Otherwise it is normal. She has also restarted the Lansoprazole and stopped the Pepcid. From my standpoint she can have her uterine prolapse taken care of. Functional Status Description No Information Available Mental Status Description No Information Available Referrals Description No Information Available
--- OUTSIDE RECORDS SUMMARY | 2018-12-07 18:53 | XMS REPORT | Continuity of Care Document ---
:1965 Author [address] 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 [place] 9 [address] [facility], [address] , [place], [address]. [id number], tel:[phone] tel:[phone] [facility] Hypertrophy of Serafin-2 [facility] [place] uterus 6-201 Danyelle. [place] 9 [address] [facility], [address], [place], [address]. 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 Provider: [facility] (routine) w 9 [address] abnormal [place], [address] [place], [address], [address] [place] for removal of [place], St, St, [place], intrauterine [place], [place], contrace[place] [address]. [place], [address]. [id number], device tel:+ tel:[phone] [place] [phone] tel:[phone] [facility] [place] Luz. [place] 4 [address] [place], [address], [address] [place], , [place], [address]. [id number], tel:+ US [phone] tel:[phone] [facility] [place] Ifeoma. [place] 4 [address] [place], [address], [address] [place], , [place], [address]. 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 Provider: [facility] [address] [place] Jyoti R, [facility], [address], [address] [place], [address], St, [place], [place], [place], [address]. [place], [address]. [id number], tel:+60 tel:[phone] [place] [phone] tel:[phone] Family History Family Member Diagnosis Age At [...] type Covered democrat ID Authorization(s) Medicare MB [id number] Social History Type Description Quantity Date Captured [...] Date Type Action Status Referral Ordered: ordered Pelvic Ultrasound (related to Hypertrophy of uterus) Referral Ordered: ordered Referrals: Pelvic Ultrasound. Diagnostic [...] Date No information Medical Equipment Description Device [place] Device Identifier Effective Dates (start - stop ) Status No information Mental Status Date Cognitive Assessment No information Health Concerns Observation Date No information Concern Status Date No information
--- OUTSIDE RECORDS SUMMARY | 2018-12-07 18:53 | XMS REPORT | Continuity of Care Document ---
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 Advance Directives Directive Yes / No Effective Date File Name No information Encounters Encounter Practice Location Reason(s) Diagnoses Date Provider Providers Description For Visit Copied on Encounter [facility] [place] 3-201 Nel. [place] 9 [address] [facility] [place] [facility], [address], [facility] [place] [facility], , [place], [address], [id number], [place]. [place] tel:+60 tel:[phone] [facility] Hypertrophy of Serafin- [facility] uterus 6-201 [place]elle. [place] 9 [address] [place], [address], [address] [place], St, [place], [address]. 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 Provider: [facility] (routine) w 9 [address] abnormal [place], [address] [place], [address], [place] for removal of [place], St, St, [place], intrauterine [place], [place], [place] [address]. [place], [address]. [id number], device tel:+ tel:+[phone] [place] [phone] tel:[phone] [facility] [place] Luz. [place] 4 [address] [place], [address], [address] [place], , [place], [address]. [id number], tel:+[phone] US [phone] tel:[phone] [facility] [place] Ifeoma. [place] 4 [address] [place], [address], [address] [place], , [place], [address]. 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 Provider: [facility] [address] [place] R, [place], [address], [address] [place], [address], St, [place], [place], [place], [address]. [place], [address]. [id number], tel:+60 tel:[phone] [place] [phone] tel:[phone] Family History Family Member Diagnosis Age At [...] type Covered republican ID Authorization(s) Medicare MB [id number] Social History Type Description Quantity Date Captured [...] Date No information Medical Equipment Description Device [place] Device Identifier Effective Dates (start - stop ) Status No information Mental Status Date Cognitive Assessment No information Health Concerns Observation Date No information Concern Status Date No information
--- OUTSIDE RECORDS SUMMARY | 2018-12-07 18:53 | XMS REPORT | Continuity of Care Document ---
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 [place] 9 [address] [facility], [address] , [place], [address]. [id number], tel:[phone] tel:[phone] [facility] Hypertrophy of [facility] [place] uterus 6 [place]anyelle. [place] 9 [address] [facility], [address], [address] [facility], [place], [place], [address]. [id number], tel:+ [place] [phone] tel:[phone] [facility] Encntr for automobile designer [facility]erring [facility] exam (general) . Provider: [facility] (routine) w 9 [address] abnormal [place], [address] [place], [address] [place] for removal of [place], St, St, [place], intrauterine [place], [place], [place], contrace[place] [address]. [place], [address]. [id number], device tel:+ tel:+[phone] [place] [phone] tel:[phone] [facility] [place] Luz. [place] 4 [address] [place], [address], [address] [place], , [place], [address]. [id number], tel:+ US [phone] tel:[phone] [facility] [place] Ifeoma. [place] 4 [address] [place], [address], [address] [place], , [place], [address]. [id number], tel:+[phone] [place] [phone] tel:[phone] [facility] RIVET HOLE PUNCHER Exam, Routine Parete Referring Parenthood [facility] . Provider: [facility] 4 [address] [place] Jyoti R, [facility], [address], [address] [place], [place], St, [place], [place], [place], [address]. [place], [address]. [id number], tel:+60 tel:+[phone] [place] [phone] tel:[phone] Family History Family Member Diagnosis Age At [...] type Covered republican ID Authorization(s) Medicare MB [id number] Social History Type Description Quantity Date Captured [...] Date No information Medical Equipment Description Device [place] Device Identifier Effective Dates (start - stop ) Status No information Mental Status Date Cognitive Assessment No information Health Concerns Observation Date No information Concern Status Date No information
--- OUTSIDE RECORDS SUMMARY | 2018-12-07 18:53 | XMS REPORT | Continuity of Care Document ---
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 Onset: 01/31/2014 Vitreous degeneration Shaheed Sanchez O.D. Onset: 01/31/2014 Presbyopia Shaheed Sanchez O.D. Onset: 01/31/2014 Social History Type Date Description Comments Sex Unknown ETOH Use Denies alcohol use Tobacco Use Start: Unknown Patient has never smoked Smoking Status Reviewed: 10/19/18 Patient has never smoked Allergies, Adverse Reactions, [...] Available Procedures Date Code Description Status 10/19/2018 10265 Eye Exam Est Intermediate Completed 09/28/2018 41362 Oct Retina Completed 09/28/2018 99274 Eye Exam Est Intermediate Completed Medical Devices Description No Information Available Encounters Description No Information Available Assessments Date Code Description Provider 10/19/2018 H04.123 Dry eye syndrome of bilateral lacrimal glands Shaheed Alves, OD 09/28/2018 Z79.899 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
--- OUTSIDE RECORDS SUMMARY | 2018-12-07 18:53 | XMS REPORT | Continuity of Care Document ---
:1965 External Reference #:[id number] Author Name Kendall Javier MD (transmitted by agent of provider Leila Morocho) Address [address] [place] [id number] Care Team Providers Name Role Phone Sidney Alonso MD - Family Medicine Care Team Information Director Telehealth [phone] Problems Active Problems Provider Date Localized, primary osteoarthritis Marcela Booker M.D. Onset: 10/24/2017 Localized, primary osteoarthritis of the pelvic Marcela Booker M.D. Onset: region and thigh Social History Type Date Description Comments Sex Unknown ETOH Use Denies alcohol use Tobacco Use Start: Unknown Patient has never smoked Recreational Drug Use Denies Drug Use Smoking Status Reviewed: 12/01/18 Patient has never smoked Exercise Type/Frequency Exercises regularly Allergies, Adverse Reactions, Alerts Active Allergies Reaction Severity Comments Date Sulfa Antibiotics neuropathy 01/21/2017 Vancomycin hives 01/21/2017 Dairy 01/21/2017 Medications Active Medications SIG Qnty Indications Ordering Date Provider Hydroxychloroquine Sulfate take one tablet Unknown 200mg by mouth twice a Tablets day Epipen 2-Arnie use as directed Unknown 0.3mg/0.3ML Solution Auto-Inject Tumeric daily Unknown [place] 3 2 tabs daily Unknown 1200mg Capsules Albuterol Sulfate Unknown Lansoprazole Unknown Probiotic Unknown Nac 600 Unknown History Medications Methylprednisolone medrol dose pack 1units M06.9 Marcela Booker, 10/12/2018 - 4mg TBPK - take as MMike 11/30/2018 directed Medications Administered in Office Medication SIG Qnty Indications Ordering Provider Date Synvisc Or Synvisc-One Injection 1 Marcela Booker M.D. 10/12/2018 MG Injection Depomedrol 40MG Marcela Booker M.D. 09/14/2018 Injection Synvisc Or Synvisc-One Injection 1 Marcela Booker M.D. 11/05/2017 MG Injection Depomedrol 80MG Chester Riley M.D. 09/05/2010 Injection Immunizations Description No Information Available Vital Signs Date Vital Result Comment 12/01/2018 3:37pm Height 68 inches 5'8" Weight 148.00 lb Heart Rate 60 /min BP Systolic 148 mmHg BP Diastolic 60 mmHg Respiratory Rate 16 /min Body Temperature 98.6 F Pain Level 8 BMI (Body Mass Index) 22.5 kg/m2 10/12/2018 1:13pm Height 68 inches 5'8" Weight 136.00 lb BP Systolic 126 mmHg BP Diastolic 76 mmHg Body Temperature 97.8 F BMI (Body Mass Index) 20.7 kg/m2 Results Test Date Facility Test Result H/L Range Note Laboratory test 10/02/2018 [facility] Cytology SEE RESULT [address] Non-Interactive Graphic [place] [address] [phone] Laboratory test 10/01/2018 [facility] Surgical SEE RESULT [address] [place] [address] [phone] Xray 09/14/2018 En[facility] Clerk In House Inj/Aspir Major <pending> JT Or Bursa W/ US 1 SEE RESULT BELOW Name: NAKIA TAY : [address]: William Reaves MD Acct: [id number] Unit: [id number] AGE: 52 Location: Re10/02/18 SEX: F Status: REG REF SPEC: [id number] SUSANA: 10/02/18-[address] [facility] [address]: William Reaves MD REQ: [id number] RECD: 10/02/18 STATUS: OLIVIA AGUAYO DR: Easton Kumar MD _ ORDERED: FNA-IMG GUID BX, CYTO ADEQ-1ST P FINAL DIAGNOSIS Thyroid, right, Ultrasound guided, fine needle aspiration: -- Benign thyroid nodule, colloid/hyperplastic (Malone class II). The specimen demonstrates abundant watery [...] CONTINUED ON NEXT PAGE DEPARTMENT OF PATHOLOGY, [address] [place] [address] Ambrosio Palmer M.D. Director [facility] # [id number] RUN DATE: 10/05/18 [facility] LAB LIVE PAGE 2 Patient: NAKIA TAY [id number] (Continued) IMMEDIATE INTERPRETATION (Continued) IMMEDIATE INTERPRETATION Pass 1-adequate. GROSS DESCRIPTION Ultrasound guided, fine needle aspiration x 1 pass with 1 alcohol fixed slide (s). Signed by and Reported on: Ambrosio Palmer MD 07/19 1435 END OF REPORT DEPARTMENT OF PATHOLOGY, [address] [place] [address] Ambrosio Palmer M.D. Director [facility] # [id number] 2 SEE RESULT BELOW Name: NAKIA TAY : [address]: Juvenal Yan DO Acct: [id number] Unit: [id number] AGE: 52 Location: ENDO Re10/01/18 SEX: F Status: REG REF SPEC: [id number] SUSANA: 10/01/[address] [facility] [address]: Juvenal Yan DO REQ: [id number] RECD: 10/01/18 STATUS: OLIVIA AGUAYO DR: Sidney [...] CONTINUED ON NEXT PAGE DEPARTMENT OF PATHOLOGY, [address] [place] [address] Ambrosio Palmer M.D. Director [facility] # [id number] RUN DATE: 10/02/18 [facility] LAB LIVE PAGE 2 Patient: NAKIA TAY Jacquelyn [id number] (Continued) CLINICAL HISTORY (Continued) CLINICAL HISTORY Ulcer; [...] CONTINUED ON NEXT PAGE DEPARTMENT OF PATHOLOGY, [address] [place] [address] Ambrosio Palmer M.D. Director [facility] # [id number] RUN DATE: 10/02/18 [facility] LAB LIVE PAGE 3 Patient: GISELLERONANNAKIA [id number] (Continued) GROSS DESCRIPTION (Continued) 0.3 x 0.2 [...] 1351 END OF REPORT DEPARTMENT OF PATHOLOGY, [address] [place] [address] Ambrosio Palmer M.D. Director [facility] # [id number] Procedures Date Code Description Status 10/12/2018 Inject/Drain Joint/Bursa Major W/O US Completed 09/14/2018 40669 Inj/Aspir Major JT Or Bursa W/ US Completed Medical Devices Description No Information Available Encounters Type Date Location Provider Dx Diagnosis Office Visit 09/14/2018 [facility] Marcela Booker, M25.562 Pain in left knee 1:30p at [place] M25.462 Effusion, left knee M17.12 Unilateral primary [...] hip Marcela Booker M.D. Plan of Treatment Future Appointment(s):12/08/2018 2:00 pm - Kendall Javier MD at [facility] at [place]/18/2018 9:30 am - Lavonne Erwin MD at [facility] Functional Status Description No Information Available Mental Status Description No Information Available Referrals Description No Information Available
--- OUTSIDE RECORDS SUMMARY | 2018-12-07 18:53 | XMS REPORT | Continuity of Care Document ---
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 [facility] 9 [address] [facility], [address] , [place], [address]. [id number], tel:[phone] tel:[phone] [facility] Hypert[facility] [place] uterus Danyelle. [facility] 9 [address] [facility], [address] [facility], , [place], [address]. [id number], tel:+ [phone] tel:[phone] [facility] Encntr for otorhinolaryngologist [facility] Referring [facility] exam (general) . Provider: [facility] (routine) w 9 [address] abnormal [place], [address] [place], [address] [place] for removal of [place], St, St, [place], intrauterine [place], [place], [place], contraceptive [address]. [place], [address]. [id number], device tel:+ tel:[phone] tel:[phone] [facility] [place] Luz. [facility] 4 [address] [place], [address] [place], , [place], [address]. [id number], tel:+ [phone] tel:[phone] [facility] [place] Ifeoma. [facility] 4 [address] [place], [address] [place], , [place], [address]. 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 Provider: [facility] [address] [place] R, [facility], [address], [address] [place], [place] [address], [address], [place], [place], [place], [address]. [place], [address]. [id number], tel:[phone] tel:[phone] tel:[phone] Family History Family Member Diagnosis Age At [...] type Covered republican ID Authorization(s) Medicare MB [id number] Social History Type Description Quantity Date Captured [...] Date No information Medical Equipment Description Device [place] Device Identifier Effective Dates (start - stop ) Status No information Mental Status Date Cognitive Assessment No information Health Concerns Observation Date No information Concern Status Date No information
--- NOTE | 2018-12-07 21:03 | ED ---
Upper Extremity Pain - HPI Summary HPI Summary: Patient with history of thoracic outlet syndrome complains of waking up from an afternoon nap with right arm pain. Arm pain in right hand and right forearm and right bicep. Also complains of dry cough and progressive SOB 2 days. Denies fever, sore throat, CP, N/V/V abdominal pain, change in urine, change in BM. Ankle history of thoracic LOC syndrome, RA. - History of Current Complaint Chief Complaint: EDExtremityUpper Stated Complaint: RT ARM PAIN/SOB PER PT Time Seen by Provider: 12/07/18 20:53 Hx Obtained From: Patient Mechanism Of Injury: Unknown Onset/Duration: Started Hours Ago Timing: Constant Severity Initially: Moderate Severity Currently: Mild Pain Location: Arm, Forearm Character: Dull, Aching, Throbbing Aggravating Factor(s): Movement, Abduction Alleviating Factor(s): Rest Associated Signs & Symptoms: Positive: SOB - Allergies/Home Medications Allergies/Adverse Reactions: Allergies Allergy/AdvReac Type Severity Reaction Status Date / Time levofloxacin [From Levaquin] Allergy Anaphylatic Verified 10/03/18 06:34 Shock omeprazole Allergy Anaphylatic Verified 10/03/18 06:34 Shock vancomycin AdvReac Hives Verified 10/03/18 06:34 PMH/Surg Hx/FS Hx/Imm Hx Endocrine/Hematology History: Reports: Hx Blood Disorders - mild von willebrands , Hx Systemic Lupus Erythematosus Denies: Hx Diabetes Cardiovascular History: Denies: Hx Congestive Heart Failure, Hx Hypertension, Hx Pacemaker/ICD Respiratory History: Reports: Hx Asthma - mild seasonal, Hx Sleep Apnea GI History: Reports: Hx Crohn's Disease, Other GI Disorders - CROHN'S DISEASE History: Denies: Hx Dialysis, Hx Renal Disease Musculoskeletal History: Reports: Hx Arthritis, Hx Rheumatoid Arthritis, Other Musculoskeletal History - RA Sensory History: Denies: Hx Eye Prosthesis, Hx Hearing Aid Opthamlomology History: Denies: Hx Legally Blind EENT History: Denies: Hx Deafness Neurological History: 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 Psychiatric History: Denies: Hx Panic Disorder - Cancer History Hx Chemotherapy: No - Surgical History Surgery Procedure, Year, and Place: ovarian cyst, lypomia removal, rheumatoid nodule right foot. BILATERAL CARPAL TUNNEL. 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 per pt Denies: Traveled Outside the [place] in Last 30 Days - Family History Known Family History: Negative: Blood Disorder - Social History Alcohol Use: None Alcohol Amount: 2-3 drinks/year Hx Substance Use: No Substance Use Type: Reports: None Hx Tobacco Use: No Smoking Status (MU): Never Smoked Tobacco Review of Systems Constitutional: Negative Eyes: Negative ENT: Negative Cardiovascular: Negative Positive: Shortness Of Breath, Cough Gastrointestinal: Negative Genitourinary: Negative Musculoskeletal: Other Skin: Negative Neurological: Negative Psychological: Normal All Other Systems Reviewed And Are Negative: Yes Physical Exam - Summary Physical Exam Summary: Increase in right arm pain with abduction. Lung sounds clear to auscultation bilaterally. RRR. No pain with palpation of right arm. Triage Information Reviewed: Yes Vital Signs On Initial Exam: Initial Vitals Temp Pulse Resp BP Pulse Ox 98.8 F 98 20 143/102 100 12/07/18 18:17 12/07/18 18:17 12/07/18 18:17 12/07/18 18:17 12/07/18 18:17 Vital Signs Reviewed: Yes Appearance: Positive: Well-Appearing Skin: Positive: Warm Head/Face: Positive: Normal Head/Face Inspection Eyes: Positive: Normal ENT: Positive: Normal ENT inspection Neck: Positive: Supple Respiratory/Lung Sounds: Positive: Clear to Auscultation Cardiovascular: Positive: Normal Abdomen Description: Positive: Nontender Musculoskeletal: Positive: Normal Neurological: Positive: Normal Psychiatric: Positive: Normal AVPU Assessment: Alert - [place] Coma Scale Best Eye Response: 4 - Spontaneous Best Motor Response: 6 - Obeys Commands Best Verbal Response: 5 - Oriented Coma Scale Total: 15 Procedures - Sedation Patient Received Moderate/Deep Sedation with Procedure: No Diagnostics - Vital Signs Vital Signs Temp Pulse Resp BP Pulse Ox 12/07/18 18:17 98.8 F 98 20 143/102 100 - Laboratory Result Diagrams: 12/07/18 22:59 12/07/18 22:59 Lab Statement: Any lab studies that have been ordered have been reviewed, and results considered in the medical decision making process. Course/Dx - Course Course Of Treatment: Patient with history of thoracic outlet syndrome complains of waking up from an afternoon nap with right arm pain. Arm pain in right hand and right forearm and right bicep. Also complains of dry cough and progressive SOB 2 days. Denies fever, sore throat, CP, N/V/V abdominal pain, change in urine, change in BM. Ankle history of thoracic LOC syndrome, RA. No anti- coag. Patient has appointment for MRA 2 days from now. Vital signs within normal limits. D-dimer 303. Labs otherwise unremarkable. Ultrasound of right upper extremity negative for DVT. Discussed patient with [facility] on-call radiologist who stated we could do CTA chest as we do not have MRA at this time. Patient states she has been advised by her doctor not to do anymore CTs unless necessary. Patient has positive pulses in right wrist, right extremity is as warm as the left extremity, and patient pain is only intermittent. Patient opted to defer CT at this time, and will call Dr Bui to see if MRA can happen sooner. In the meantime, Patient states she will return to the ED for any worsening symptoms. - Diagnoses Provider Diagnoses: Right arm pain, Cough Discharge ED - Sign-Out/Discharge Documenting (check all that apply): Patient Departure - related to have the persistent - Discharge Plan Condition: Stable Disposition: HOME Prescriptions: Benzonatate CAP* [Tessalon 100 MG CAP*] 200 mg PO TID 6 Days #40 cap Patient Education Materials: Thoracic Outlet Syndrome (ED), Arm Pain (ED) Referrals: Sidney Alonso MD [Primary Care Provider] - Additional Instructions: Call your doctor tomorrow to see if you can move your appointment for MRA up sooner. Return to the ED for any worsening symptoms. - Billing Disposition and Condition Condition: STABLE Disposition: Home - Attestation Statements Provider Attestation: I was available for consult. This patient was seen by the ERIC. The patient was not presented to, seen by, or examined by me. Manpreet Blackburn MD
[2018-12-07 23:12] LABS: ABS Basophils 0.1 10^3/ul (0-0.2); ABS Eosinophils 0.2 10^3/ul (0-0.6); ABS Lymphocytes 2.1 10^3/ul (1.0-4.8); ABS Monocytes 0.8 10^3/ul (0-0.8); ABS Neutrophils 6.2 10^3/ul (1.5-7.7); Eosinophil % 1.7 %; Hematocrit 37 % (35-47); Hemoglobin 12.6 g/dL (12.0-16.0); Lymphocyte % 22.7 %; Mean Corpuscular HGB Conc 34 g/dL (31-36); Mean Corpuscular Hemoglobin 30 pg (27-31); Mean Corpuscular Volume 88 fL (80-97); Mean Platelet Volume 6.8 fL (7.4-10.4); Platelet Count 332 10^3/uL (150-450); Red Blood Count 4.22 10^6 /uL (3.70-4.87); Red Cell Distribution Width 14 % (10-15); White Blood Count 9.4 10^3/uL (3.5-10.8)
[2018-12-07 23:27] LABS: ALT 14 U/L (7-52); AST 13 U/L (13-39); Albumin 4.5 g/dL (3.2-5.2); Albumin/Globulin Ratio 1.7 (1-3); Alkaline Phosphatase 56 U/L (34-104); Anion Gap 5 mmol/L (2-11); BUN/Creatinine Ratio 24.2 (8-20); Blood Urea Nitrogen 16 mg/dL (6-24); C Reactive Protein < 1.00 mg/L (<8.01); CO2 Carbon Dioxide 28 mmol/L (22-32); Calcium 9.3 mg/dL (8.6-10.3); Chloride 103 mmol/L (101-111); EGFR African American 112.9 (>60); EGFR Non-African American 93.3 (>60); Globulin 2.7 g/dL (2-4); Glucose 96 mg/dL (70-100); Sodium 136 mmol/L (135-145); Total Protein 7.2 g/dL (6.4-8.9)
[2018-12-08] MEDS ORDERED: Benzonatate CAP* 100 MG PO ONE (00:22)
[2018-12-08 00:42] VITALS: BP 127/75
== END 2018-12-08 00:41 | disposition home or self-care (01) ==
LOC: ED 18:13
DX: M79.601 Pain in right arm (principal); R05 Cough; D68.0 Von Willebrand disease; M32.9 Systemic lupus erythematosus, unspecified; J45.909 Unspecified asthma, uncomplicated; K50.90 Crohn's disease, unspecified, without complications; Z88.1 Allergy status to other antibiotic agents; Z88.8 Allergy status to other drugs, medicaments and biological substances; Z79.899 Other long term (current) drug therapy
CPT/HCPCS: 36415; 71046; 80053; 85025; 85379; 86140; 93005; 99282

== ENCOUNTER 2018-12-19 17:08 | Emergency (ER) | payer MEDICARE, MEDICAID ==
--- OUTSIDE RECORDS SUMMARY | 2018-12-19 17:14 | XMS REPORT | Continuity of Care Document ---
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 9 [address] [facility], [address] , [place], [address], [id number], [place] tel:+ tel:[phone] [facility] uterus Danyelle. [facility] 9 [address] [facility], [address] [place], , [place], [address]. 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 Provider: [facility] (routine) w 9 [address] abnormal [place], [address] [place], [place] for removal of [place], St, St, [place], [place]ine [place], [place], [place] [address]. [place], [address]. [id number], device tel:+ tel:[phone] tel:[phone] [facility] [place] Luz. [facility] 4 [address] [place], [address], [address] [place], , [place], [address]. [id number], tel:+[phone] [place] [phone] tel:[phone] [facility] [place] Ifeoma. [place] 4 [address] [place], [address], [address] [place], , [place], [address]. 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 Provider: [facility] [address] [place] J[place] R, [place], [address], [address] [place], [place] [address], [place], [place], [place], [address]. [place], [address]. [id number], tel:+[phone] tel:[phone] [place] [phone] tel:[phone] Family History Family Member Diagnosis Age At [...] type Covered democrat ID Authorization(s) Medicare MB [id number] Social History Type Description Quantity Date Captured [...] Date No information Medical Equipment Description Device [place] Device Identifier Effective Dates (start - stop ) Status No information Mental Status Date Cognitive Assessment No information Health Concerns Observation Date No information Concern Status Date No information
--- OUTSIDE RECORDS SUMMARY | 2018-12-19 17:14 | XMS REPORT | Continuity of Care Document ---
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 Onset: 10/24/2017 Localized, primary osteoarthritis of the pelvic Marcela Booker M.D. Onset: region and thigh Rheumatoid lung disease Kendall Javier MD Onset: 12/01/2018 Social History Type Date Description Comments Sex Unknown ETOH Use Denies alcohol use Tobacco Use Start: Unknown Patient has never smoked Recreational Drug Use Denies Drug Use Smoking Status Reviewed: 12/14/18 Patient has never smoked Exercise Type/Frequency Exercises regularly Allergies, Adverse Reactions, Alerts Active Allergies Reaction Severity Comments Date Sulfa Antibiotics neuropathy 01/21/2017 Vancomycin hives 01/21/2017 Dairy 01/21/2017 Medications Active Medications SIG Qnty Indications Ordering Date Provider Hydroxychloroquine Sulfate take one tablet Unknown 200mg by mouth twice a Tablets day Epipen 2-Arnie use as directed Unknown 0.3mg/0.3ML Solution Auto-Inject Tumeric daily Unknown [place] 3 2 tabs daily Unknown 1200mg Capsules Albuterol Sulfate Unknown Lansoprazole Unknown Probiotic Unknown Nac 600 Unknown History Medications Methylprednisolone medrol dose pack 1units M06.9 Marcela Booker, 10/12/2018 - 4mg TBPK - take as M.DFerny 11/30/2018 directed Medications Administered in Office Medication SIG Qnty Indications Ordering Provider Date Synvisc Or Synvisc-One Injection 1 Marcela Booker M.D. 10/12/2018 MG Injection Depomedrol 40MG Marcela Booker M.D. 09/14/2018 Injection Synvisc Or Synvisc-One Injection 1 Marcela Booker M.D. 11/05/2017 MG Injection Depomedrol 80MG Chester Riley M.D. 09/05/2010 Injection Immunizations Description No Information Available Vital Signs Date Vital Result Comment 12/14/2018 7:39am Height 68 inches 5'8" Weight 152.00 lb Heart Rate 67 /min BP Systolic Sitting 138 mmHg BP Diastolic Sitting 80 mmHg O2 % BldC Oximetry 89 % BMI (Body Mass Index) 23.1 kg/m2 Neck Circumference in inches 12.5 12/08/2018 2:50pm Height 68 inches 5'8" Weight 135.00 lb Heart Rate 80 /min BP Systolic 128 mmHg BP Diastolic 76 mmHg Respiratory Rate 14 /min Pain Level 6 BMI (Body Mass Index) 20.5 kg/m2 Results Test Date Facility Test Result H/L Range Note Laboratory test 10/02/2018 [facility] Cytology SEE RESULT [address] Non-Milking [place] [address] [phone] Laboratory test 10/01/2018 [facility] Surgical SEE RESULT [address] [place] [address] [phone] Xray 09/14/2018 [facility] Inj/Aspir Major <pending> JT Or Kenrick W/ US 1 SEE RESULT BELOW Name: NAKIA TAY : [address]: William Reaves MD Acct: [id number] Unit: [id number] AGE: 52 Location: SP Re10/02/18 SEX: F Status: REG REF SPEC: [id number] SUSANA: 10/02/18-155 [facility] DR: William Reaves MD REQ: [id number] RECD: 10/02/18 STATUS: OLIVIA AGUAYO DR: Easton Kumar MD _ ORDERED: FNA-IMG GUID BX, CYTO ADEQ-1ST P FINAL DIAGNOSIS Thyroid, right, Ultrasound guided, fine needle aspiration: -- Benign thyroid nodule, colloid/hyperplastic ([place] class II). The specimen demonstrates abundant watery [...] CONTINUED ON NEXT PAGE DEPARTMENT OF PATHOLOGY, [address] [place] [address] Ambrosio Palmer M.D. Director [facility] # [id number] RUN DATE: 10/05/18 [facility] LAB LIVE PAGE 2 Patient: NAKIA TAY [id number] (Continued) IMMEDIATE INTERPRETATION (Continued) IMMEDIATE INTERPRETATION Pass 1-adequate. GROSS DESCRIPTION Ultrasound guided, fine needle aspiration x 1 pass with 1 alcohol fixed slide (s). Signed by and Reported on: Ambrosio Palmer MD 07/19 1435 END OF REPORT DEPARTMENT OF PATHOLOGY, [address] [place] [address] Ambrosio Palmer M.D. Director [facility] # [id number] 2 SEE RESULT BELOW Name: NAKIA TAY DOB: [address]: Juvenal Yan DO Acct: [id number] Unit: [id number] AGE: 52 Location: ENDO Re10/01/18 SEX: F Status: REG REF SPEC: [id number] SUSANA: 10/01/[address]: Juvenal Yan DO REQ: [id number] RECD: 10/01/18-1327 STATUS: OLIVIA AGUAYO DR: Sidney Reaves MD [...] CONTINUED ON NEXT PAGE DEPARTMENT OF PATHOLOGY, [address] [place] [address] Ambrosio Palmer M.D. Director [facility] # [id number] RUN DATE: 10/02/18 [facility] LAB LIVE PAGE 2 Patient: NAKIA TAY [id number] (Continued) CLINICAL HISTORY (Continued) CLINICAL HISTORY Ulcer; [...] CONTINUED ON NEXT PAGE DEPARTMENT OF PATHOLOGY, [address] [place] [address] Ambrosio Palmer M.D. Director [facility] # [id number] RUN DATE: 10/02/18 [facility] LAB LIVE PAGE 3 Patient: NAKIA TAY [id number] (Continued) GROSS DESCRIPTION (Continued) 0.3 x 0.2 [...] 1351 END OF REPORT DEPARTMENT OF PATHOLOGY, [address] [place] [address] Ambrosio Palmer M.D. Director [facility] # [id number] Procedures Date Code Description Status 12/01/2018 Inject/Drain Joint/Bursa Small W/O US Completed 12/01/201882965 Inject Tendon Sheath Or Ligament Aponeurosis Eg Plantar Completed Fascia 12/01/2018 46171 Inject Tendon Sheath Or Ligament Aponeurosis Eg Plantar Completed Fascia 12/01/2018 29364 Inject Tendon Sheath Or Ligament Aponeurosis Eg Plantar Completed Fascia 12/01/201824876 Inject Tendon Sheath Or Ligament Aponeurosis Eg Plantar Completed Fascia 10/12/2018 74201 Inject/Drain Joint/Bursa Major W/O US Completed 09/14/2018 36450 Inj/Aspir Major JT Or Bursa W/ US Completed Medical Devices Description No Information Available Encounters Type Date Location Provider Dx Diagnosis Office Visit 12/14/2018 [facility] Lavonne Erwin MD R05 Cough 8:00a [facility] J98.4 Other disorders of lung J45.909 Unspecified asthma, uncomplicated G47.9 Sleep disorder, unspecified Office Visit 09/14/2018 1:30p [facility] Marcela Booker, M25.562 Pain in left at [facility].D. knee M25.462 Effusion, left knee M17.12 Unilateral primary osteoarthritis, left knee M06.9 Rheumatoid arthritis, unspecified M32.10 Systemic lupus erythematosus, organ or system involv unsp M79.7 Fibromyalgia M25.552 Pain in left hip M16.12 Unilateral primary osteoarthritis, left hip Assessments Date Code Description Provider 12/14/2018 R05 Cough Lavonne Erwin MD 12/14/2018 J98.4 Other disorders of lung Lavonne Erwin MD 12/14/2018 J45.909 Unspecified asthma, uncomplicated Lavonne Erwin MD 12/14/2018 G47.9 Sleep disorder, unspecified Lavonne Erwin MD 12/01/2018 M05.142 Rheumatoid lung disease with rheumatoid Kendall Javier MD arthritis of left hand 12/01/2018 M65.331 Trigger finger, right middle finger Kendall Javier MD 12/01/2018 M65.341 Trigger finger, right ring finger Kendall Javier MD 12/01/2018 M65.332 Trigger finger, left middle finger Kendall Javier MD 12/01/2018 M65.342 Trigger finger, left ring finger Kendall Javier MD 10/12/2018 M25.562 Pain in left knee Marcela [...] 09/14/2018 M25.552 Pain in left hip Marcela Jhony, M.D. 09/14/2018 M16.12 Unilateral primary osteoarthritis, left hip Marcela Booker M.D. Plan of Treatment Future Appointment(s):01/27/2019 10:30 am - Lavonne Erwin MD at [facility]12/29/2018 2:45 pm - Kendall Javier MD at [facility] at C[facility]012/21/2018 8:30 am - Nurse Visit IC at [facility]12/18/2018 11:00 am - Traveling ECHO 2 at [facility]2018 11:30 am - Nurse Visit IC at [facility]12/14/2018 - Lavonne Erwin, MDR05 CoughNew Orders:PFTW/Spirometry Vol Pre/Post Bronchdilat Dlco Complete, Ordered: 12/14/18Follow up:6 [id number] Other disorders of lungNew Xrays:Chest 2 Views W/Fluoroscopy, Ordered: 12/14/18J45.909 Unspecified asthma, uncomplicatedNew Orders:Sleep Study, Ordered: 12/14/18G47.9 Sleep disorder, unspecified Functional Status Description No Information Available Mental Status Description No Information Available Referrals Description No Information Available
[2018-12-19 17:19] VITALS: BP 115/67
--- NOTE | 2018-12-19 18:26 | UC ---
Complaint Female HPI - HPI Summary HPI Summary: HAD HYSTERECTOMY WITH PELVIC FLOOR RECONSTRUCTION 6 WEEKS AGO IN [facility]. HAS BEEN DOING WELL IN HER RECOVERY. 2 DAYS AGO DEVELOPED SENSATION OF INCOMPLETE VOIDING WELL URINARY FREQUENCY, URGENCY AND DISCOMFORT. NO FEVER, NAUSEA, BACK PAIN. - History Of Current Complaint Chief Complaint: UCGU Stated Complaint: URINARY COMPLAINT Time Seen by Provider: 12/19/18 18:11 Hx Obtained From: Patient Hx Last Menstrual Period: just had uterus taken out Onset/Duration: Gradual Onset, Lasting Days, Still Present Timing: Constant Severity Initially: Moderate Severity Currently: Moderate Pain Intensity: 3 Pain Scale Used: 0-10 Numeric Character: Sharp, Burning Aggravating Factor(s): Urination Alleviating Factor(s): Nothing Associated Signs And Symptoms: Negative: Fever, Back Pain, Vaginal Bleeding/ Discharge, Nausea - Allergies/Home Medications Allergies/Adverse Reactions: Allergies Allergy/AdvReac Type Severity Reaction Status Date / Time levofloxacin [From Levaquin] Allergy Anaphylatic Verified 12/19/18 17:19 Shock omeprazole Allergy Anaphylatic Verified 12/19/18 17:19 Shock vancomycin AdvReac Hives Verified 12/19/18 17:19 Home Medications: Home Medications Levothyroxine Sodium [Levo-T] 25 mcg PO 12/19/18 [History] PMH/Surg Hx/FS Hx/Imm Hx - Additional Past Medical History Additional PMH: LUPUS, RA Respiratory History: Asthma Other GI/ History: CROHNS - Surgical History Surgical History: Yes Surgery Procedure, Year, and Place: ovarian cyst, lypomia removal, rheumatoid nodule right foot. BILATERAL CARPAL TUNNEL. RIGHT ELBOW NERVE RELEASE. HYSTERECTOMY 6 weeks ago - Family History Known Family History: Positive: Non-Contributory Negative: Blood Disorder - Social History Alcohol Use: None Alcohol Amount: 2-3 drinks/year Substance Use Type: None Smoking Status (MU): Never Smoked Tobacco Household Exposure Type: Cigarettes Review of Systems All Other Systems Reviewed And Are Negative: Yes Constitutional: Positive: Negative Skin: Positive: Negative Respiratory: Positive: Negative Cardiovascular: Positive: Negative Gastrointestinal: Positive: Negative Genitourinary: Positive: Dysuria, Frequency, Urgency Physical Exam Triage Information Reviewed: Yes Appearance: Well-Appearing, No Pain Distress, Well-Nourished Vital Signs: Initial Vital Signs Temp 98.5 F 12/19/18 17:13 Pulse 76 12/19/18 17:13 Resp 16 12/19/18 17:13 BP 115/67 12/19/18 17:13 Pulse Ox 100 12/19/18 17:13 Laboratory Tests 12/19/18 17:28 POC Urine Color Yellow POC Urine Clarity Clear POC Urine pH 5.5 POC Ur Specif [place] 1.025 POC Urine Protein Negative POC Ur Glucose (UA) Negative POC Urine Ketones Negative POC Urine Blood Trace-lysed A POC Urine Nitrite Negative POC Urine Bilirubin Negative POC Urine Urobilinogen 0.2 POC U Leukocyte Esteras Negative Eyes: Positive: Conjunctiva Clear ENT: Positive: Hearing grossly normal Neck: Positive: Supple Respiratory: Positive: No respiratory distress, No accessory muscle use Cardiovascular: Positive: Pulses Normal Abdomen Description: Positive: Nontender, Soft. Negative: CVA Tenderness (R), CVA Tenderness (L), Distended, Guarding Musculoskeletal: Positive: No Edema Neurological: Positive: Alert Psychological: Positive: Age Appropriate Behavior Skin: Negative: Rashes Complaint Female Dx - Course Course Of Treatment: NO EVIDENCE OF UTI BASED ON THE URINE DIP. WILL SENT FOR FULL CULTURE. PROVIDED BACTRIM FOR PATIENT TO USE IN CASE SHE NEEDS IT. ENCOURAGED HYDRATION. GIVEN HER RECENT SURGERY AND SENSATION OF INCOMPLETE VOIDING THERE IS SOME CONCERN FOR KINKING IN THE URINARY TRACT. ADVISED HER TO FOLLOW-UP WITH HER LOCAL UROLOGIST AND HER URO-SCRAPER TENDER IN [facility] FIRST THING FRIDAY MORNING. SHE WILL GO TO THE ER WITHOUT FAIL IF SHE IS UNABLE TO URINATE AT ALL OR IF SHE DEVELOPS INCREASING PAIN, FEVER, NAUSEA/VOMITING OR ANY OTHER CONCERNING SYMPTOMS. - Differential Dx/Diagnosis Provider Diagnosis: Dysuria Discharge ED - Sign-Out/Discharge Documenting (check all that apply): Patient Departure All imaging exams completed and their final reports reviewed: No Studies - Discharge Plan Condition: Stable Disposition: HOME Prescriptions: Sulfamethox/Trimethoprim DS* [Bactrim DS 800/160 TAB*] 1 tab PO BID #10 tab Patient Education Materials: Dysuria (ED) Referrals: Sidney Alonso MD [Primary Care Provider] - If Needed Additional Instructions: URINE DIP TODAY WITH TRACE BLOOD BUT NO BACTERIA. WILL SEND FOR FULL CULTURE TO ENSURE NO GROWTH. WE WILL CALL YOU WITH ANY ABNORMAL RESULTS. PRESCRIPTION FOR BACTRIM SENT TO THE PHARMACY FOR YOU TO USE IF NEEDED. BE SURE TO STAY WELL -HYDRATED. CALL YOUR LOCAL UROLOGIST OR YOUR URO-SCRAPER TENDER IN [facility] ON Friday. CONCERN FOR POSSIBLE SHIFT OF YOUR URINARY TRACT. GO TO THE ER WITHOUT FAIL IF YOU ARE UNABLE TO PRODUCE ANY URINE OR IF YOU DEVELOP FEVER, WORSENING PAIN, NAUSEA/VOMITING OR ANY OTHER CONCERNING SYMPTOMS. - Billing Disposition and Condition Condition: STABLE Disposition: Home
== END 2018-12-19 18:45 | disposition home or self-care (01) ==
LOC: UCEAST 17:08
DX: R30.0 Dysuria (principal); R35.0 Frequency of micturition; R39.15 Urgency of urination; L93.0 Discoid lupus erythematosus; M06.9 Rheumatoid arthritis, unspecified; J45.909 Unspecified asthma, uncomplicated; K50.90 Crohn's disease, unspecified, without complications; Z88.8 Allergy status to other drugs, medicaments and biological substances; Z88.1 Allergy status to other antibiotic agents
CPT/HCPCS: 81003; 87086; 99212; G0463

== ENCOUNTER 2018-12-26 17:29 | Emergency (ER) | payer MEDICARE, MEDICAID ==
--- NOTE | 2018-12-26 17:41 | UC ---
Throat Pain/Nasal Jimmy HPI - HPI Summary HPI Summary: 53 y/o female presents to the urgent care c/o sore throat and and itchy rash since yesterday. Pt reports she noticed and itchy rash in her chest yesterday afternoon, then n she woke up with a sore throat and dry cough,w/ temp of 101F. Fever resolved, but Throat Pain w/ swallowing is 4/10. She took Tylenol Po and fever resolved. 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 She also has mild sinus congestion and clear nasal discharge. Pt denies dizziness, photophobia, visual changes, SOB, wheezing, chest pain, abdominal pain, N/V/D. She has a f/u appt w/ [employer] Service [employer] Att[employer] this coming Friday. - History of Current Complaint Stated Complaint: ST Time Seen by Provider: 12/26/18 17:40 Hx Obtained From: Patient Hx Last Menstrual Period: just had uterus taken out Onset/Duration: Gradual Onset, Lasting Days - 1 day, Still Present, Worse Since - tshi morning Severity: Moderate Pain Intensity: 5 Pain Scale Used: 0-10 Numeric Cough: None Associated Signs & Symptoms: Positive: Nasal Discharge - clear, Fever - thsi morning of 101F, Rash - on the chest. Negative: Dysphagia, Wheezing, Hoarseness , Sinus Discomfort - Epiglottits Risk Factors Epiglottis Risk Factors: Negative - Allergies/Home Medications Allergies/Adverse Reactions: Allergies Allergy/AdvReac Type Severity Reaction Status Date / Time levofloxacin [From Levaquin] Allergy Anaphylatic Verified 12/26/18 17:44 Shock omeprazole Allergy Anaphylatic Verified 12/26/18 17:44 Shock vancomycin AdvReac Hives Verified 12/26/18 17:44 Home Medications: Home Medications Acetylcysteine [Nac] 1,200 mg PO BID 12/26/18 [History Confirmed 12/26/18] PMH/Surg Hx/FS Hx/Imm Hx Previously Healthy: Yes Other Endocrine History: Lupus, RA, TOS, Other GI/ History: crohn's - Surgical History Surgical History: Yes Surgery Procedure, Year, and Place: ovarian cyst, lypomia removal, rheumatoid nodule right foot. BILATERAL CARPAL TUNNEL. RIGHT ELBOW NERVE RELEASE. HYSTERECTOMY 6 weeks ago - Family History Known Family History: Positive: Cardiac Disease, Hypertension, Non-Contributory Negative: Blood Disorder Family History: RA, psoriasis - Social History Occupation: Employed Full-time Lives: With Family Alcohol Use: None Alcohol Amount: 2-3 drinks/year Substance Use Type: None Smoking Status (MU): Never Smoked Tobacco Household Exposure Type: Cigarettes Review of Systems All Other Systems Reviewed And Are Negative: Yes Constitutional: Positive: Fever, Other - body aches Skin: Positive: Negative Eyes: Positive: Negative ENT: Positive: Sore Throat, Nasal Discharge - clear, Sinus Congestion Respiratory: Positive: Cough - dry Cardiovascular: Positive: Negative Gastrointestinal: Positive: Negative Genitourinary: Positive: Negative Motor: Positive: Negative Neurovascular: Positive: Negative Musculoskeletal: Positive: Myalgia Neurological: Positive: Headache Psychological: Positive: Negative Is Patient Immunocompromised?: No Physical Exam - Summary Physical Exam Summary: VITAL SIGNS: Reviewed. GENERAL: Patient is a well developed and nourished female who is sitting comfortably in the examining table. Patient is not in any acute respiratory distress. HEAD AND FACE: No signs of trauma. No ecchymosis, hematomas or skull depressions. No sinus tenderness. EYES: PERRLA, EOMI x 2, No injected conjunctiva, no nystagmus. No photophobia. EARS: Hearing grossly intact. Ear canals and tympanic membranes are within normal limits. MOUTH: Positive pharynx with mild erythema, no exudates, No B/L tonsillar enlargement , no exudate. Uvula in midline. edematous nasal mucosa w/ clear nasal discharge, clear PND NECK: Supple, trachea is midline, Positive anterior cervical lymphadenopathy, no JVD, no carotid bruit, no c-spine tenderness, neck with full ROM. No meningeal signs, no Kernig's or brudzinskis signs. CHEST: Symmetric, no tenderness at palpation LUNGS: Clear to auscultation bilaterally. No wheezing or crackles. CVS: Regular rate and rhythm, S1 and S2 present, no murmurs or gallops appreciated. ABDOMEN: Soft, non-tender. No signs of distention. No rebound no guarding, and no masses palpated. Bowel sounds are normal. EXTREMITIES: FROM in all major joints, no edema, no cyanosis or clubbing. NEURO: Alert and oriented x 3. No acute neurological deficits. Pt follows commands. SKIN: Dry and warm, positive scattered erythematous papules in Rt side chest clustered above the Rt breast and then some others in the left side of the lower back and some others on the left arm, w/ mild signs of excoriation. no tenderness to palpation, no drainage, no swelling observed Triage Information Reviewed: Yes Throat Pain/Nasal Course/Dx - Course Course Of Treatment: 53 y/o female presents to the urgent care c/o sore throat and and itchy rash since yesterday. Pt reports she noticed and itchy rash in her chest yesterday afternoon, then n she woke up with a sore throat and dry cough,w/ temp of 101F. Fever resolved, but Throat Pain w/ swallowing is 4/10. She took Tylenol Po and fever resolved. 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 She also has mild sinus congestion and clear nasal discharge. Pt denies dizziness, photophobia, visual changes, SOB, wheezing, chest pain, abdominal pain, N/V/D. She has a f/u appt w/ [employer] Service [employer] Att[employer] this coming Friday. Hx obtained. Pt is hemodynamically Stable, A&OX3, Vitals: WNL. Pt w/ pharyngitis and an unspecified rash on RT chest, and left abdomen and left arm on examination. Pt w / Hx of Crohn's and unable to take Ibuprofen. Pt given Tylenol PO by nurse to alleviate pain. Pt tolerated well medication and symptoms improved. Rapid strep ordered, result: negative. Rapid Influenza A&B: negative. Pt w/ Viral pharyngitis.Pt advised to continue taking Tylenol PO to alleviates symptoms of pain and swelling. Advised on hand washing to avoid spreading. PT Rx hidrocortisone topical cream to alleviate rash and advised close observation and if rash worsen w/ fever to go immediately to the Er for further management. Pt advised to rest, eat well and avoid strenuous exercise. If symptoms do not improve or worsen advised to f/u with her PCP for further evaluation and treatment. D/C instructions explained. Pt understood and agreed w/ plan of care. - Differential Dx/Diagnosis Differential Diagnosis/HQI/PQRI: Influenza, Laryngitis, Mononucleosis, Pharyngitis, Sinusitis, Tonsillitis, URI Provider Diagnosis: Viral pharyngitis, Rash and nonspecific skin eruption Discharge ED - Sign-Out/Discharge Documenting (check all that apply): Patient Departure - D/C home All imaging exams completed and their final reports reviewed: No Studies - Discharge Plan Condition: Stable Disposition: HOME Prescriptions: Hydrocortisone 1% CREAM(NF) 1 applic TOPICAL BID #1 applic Patient Education Materials: Pharyngitis (ED) Referrals: Sidney Alonso MD [Primary Care Provider] - 2 Days Additional Instructions: 1-Please continue taking Tylenol PO q6-8hrs prn as instructed after meals to alleviate fever, and sore throat. Increase fluid intake, eat well, rest and avoid strenuous exercise. 2- Apply Hidrocortisone topical cream as directed to alleviate rash. Take Benadryl PO to alleviate itchiness. 3-If symptoms do not improve or worsen please return to the urgent care or f/u with your PCP in 2-3 days for further evaluation and treatment. - Billing Disposition and Condition Condition: STABLE Disposition: Home - Attestation Statements Provider Attestation: Per institutional requirements, I have reviewed the chart, however, I was not consulted specifically or made aware of this patient by the midlevel provider. I did not personally evaluate, interact with , or disposition this patient.
[2018-12-26 17:44] VITALS: BP 111/78
[2018-12-26] MEDS ORDERED: Acetaminophen TAB* 325 MG PO ONE (17:59)
[2018-12-26 18:17] LABS: Influenza A Molecular NEGATIVE (Negative); Influenza B Molecular NEGATIVE (Negative)
== END 2018-12-26 18:30 | disposition home or self-care (01) ==
LOC: UCEAST 17:29
DX: J02.8 Acute pharyngitis due to other specified organisms (principal); R21 Rash and other nonspecific skin eruption; R05 Cough; Z88.8 Allergy status to other drugs, medicaments and biological substances; Z88.1 Allergy status to other antibiotic agents
CPT/HCPCS: 87651; 99212; A9270-GY; G0463

== ENCOUNTER 2018-12-30 12:38 | Emergency (ER) | payer MEDICARE, MEDICAID ==
--- OUTSIDE RECORDS SUMMARY | 2018-12-30 13:00 | XMS REPORT | Continuity of Care Document ---
:1965 External Reference #:[id number] Author Name Marianela Andre M.D. Address [address] [place] [address] Care Team Providers Name Role Phone Sam Kruse - Packaging Tech Care Team Information Square Dance Caller [phone] William Reaves ([place] - Direct) Care Team Information Square Dance Caller - Otolaryngology Sidney Alonso - Family Medicine Care Team Information Square Dance Caller [phone] Bryon Lantigua MD - Surgery Care Team Information Square Dance Caller [phone] Problems Active Problems Provider Date Rheumatoid arthritis Sidney Alonso M.D. Onset: 05/11/2007 Systemic lupus erythematosus Sidney Alonso M.D. Onset: 05/11/2007 Inflammatory polyarthropathy Sidney Alonso M.D. Onset: 05/11/2007 Microscopic hematuria Sidney Alonso M.D. Onset: 04/04/2011 Disorder of skin and/or subcutaneous tissue Sidney Alonso M.D. Onset: 04/04 Eruption Sidney Alonso M.D. Onset: 07/15/2011 Nonvenomous insect bite without infection Sidney Alonso M.D. Onset: 2011 Liver function tests abnormal Sidney Alonso M.D. Onset: 07/15/2011 Fever Sidney Alonso M.D. Onset: 09/24/2011 Arthralgia of the pelvic region and thigh Sidney Alonso M.D. Onset: 2012 Crohn's disease of small AND large Sidney Alonso M.D. Onset: 07/16/2012 intestines Allergic rhinitis Sidney Alonso M.D. Onset: 10/02/2012 Toxic effect of venom Sidney Alonso M.D. Onset: 10/02/2012 Acute otitis externa Sidney Alonso M.D. Onset: 07/16/2013 Headache Sidney Alonso M.D. Onset: 08/09/2014 Malaise and fatigue Sidney Alonso M.D. Onset: 08/23/2014 Benign neoplasm of major salivary gland Harjinder Schuler M.D. Onset: 2015 Carpal tunnel syndrome of right wrist Sidney Alonso M.D. Onset: 11/07/2015 Lesion of ulnar nerve Sidney Alonso M.D. Onset: 11/07/2015 Neck pain Sidney Alonso M.D. Onset: 08/26/2017 Cervico-occipital neuralgia Sidney Alonso M.D. Onset: 08/26/2017 Low back pain Sidney Alonso M.D. Onset: 08/26/2017 Lumbar radiculopathy Sidney Alonso M.D. Onset: 08/26/2017 Uterovaginal prolapse Sidney Alonso M.D. Onset: 10/27/2018 Gastro-esophageal reflux disease with Sidney Alonso M.D. Onset: 10/27/2018 esophagitis Thoracic outlet syndrome Marianela Andre M.D. Onset: 12/30/2018 Tinnitus of vascular origin Marianela Andre M.D. Onset: 12/30/2018 Social History Type Date Description Comments Sex Unknown Tobacco Use Start: Unknown Nonsmoker Smoking Status Reviewed: 10/06/18 Nonsmoker ETOH Use Rare Tobacco Use Start: Unknown Patient has never smoked Allergies, Adverse Reactions, Alerts Active Allergies Reaction Severity Comments Date Sulfa Neuritis 08/08/2008 Vancomycin 02/04/2009 Dairy 02/04/2009 Omeprazole 10/05/2018 Levaquin 10/05/2018 Medications Active Medications SIG Qnty Indications Ordering Date Provider Xanax 1 twice a day as 60tabs Sidney Stroud 11/26/2018 1mg Tablets needed pablo Alonso M.D. Mupirocin apply topically 22gm Sidney Stroud 08/26/2017 2% Ointment three times a Mara Alonso day to affected area(s) P-Zpjiyh-M-Cysteine 2 po qid Harjinderleonard Mitchell 09/28/2015 600mg Mara Schuler Capsules Hydroxychloroquine take one tablet 60tabs Sidney Stroud 08/08/2015 Sulfate by mouth twice Mara Alonso 200mg Tablets daily Epipen 2-Arnie use as directed 1units Sidney Stroud 10/02/2012 0.3mg/0.3ML Device Mara Alonso Fluticasone Propionate 1-2 sprays each 1Bottle Sidney Stroud 10/05/2010 nostril daily Mara Alonso 50mcg/Act Suspension prn for allergies Ventolin HFA 2 puffs every 4 1units Sidney Stroud 108(90Base) hours as needed Mara Alonso mcg/Act Aerosol Gas-X Unknown 80mg Chewtabs Levothyroxine Sodium 1 by mouth every Unknown 25mcg day Tablets History Medications Sucralfate 1 prior to 90tabs K21.0 Macey Radha 10/05/2018 - 1gm eating three JENNIFER Arevalo 10/27/2018 Tablets times daily before meals Medications Administered in Office Medication SIG Qnty Indications Ordering Provider Date TB Intradermal Test Sidney Alonso M.D. 09/22/2018 Injection TB Intradermal Test Sidney Alonso M.D. 07/31/2012 Injection TB Intradermal Test SAGE Lewis 08/12/2011 Injection TB Intradermal Test Sidney Alonso M.D. 02/07/2010 Injection Immunizations CPT Code Status Date Vaccine Lot # [id number] Given 08/07/2012 Tdap Tetanus, W Pertussis [id number] 52041 Given 08/07/2012 MMR Virus Immunization [id number] 28921 Given 08/03/2012 Hepatitis B Immunization, adult dosage, for [id number] intramuscular use 94576 Given 08/12/2011 Hepatitis B Immunization, adult dosage, for intramuscular use 32530 Given 08/12/2011 Meningococcal Conjugate Vaccine,Serogroups For [id number] Intramuscular Use 69159 Given 09/15/2002 MMR Virus Immunization 76905 Given 08/31/2002 Td Immunization, For Use In Individuals 7 Years Or Older 11416 Given 08/31/2002 Td Immunization, For Use In Individuals 7 Years Or Older Vital Signs Date Vital Result Comment 12/30/2018 11:35am BP Systolic 118 mmHg BP Diastolic 70 mmHg Heart Rate 82 /min Body Temperature 97.3 F Respiratory Rate 20 /min Weight 151.00 lb 11/26/2018 2:22pm BP Systolic 110 mmHg BP Diastolic 60 mmHg Heart Rate 66 /min Body Temperature 97.7 F Respiratory Rate 16 /min Height 67 inches 5'7" Weight 150.50 lb BMI (Body Mass Index) 23.6 kg/m2 Results Test Date Facility Test Result H/L Range Note Rapid Influenza A & 12/26/[place] [facility] A NEGATIVE Negative 1 B Molecular Molecular Influenza B Molecular NEGATIVE Negative Laboratory test 12/26/2018 [facility] Rapid Strep Negative Negative 2 finding Molecular Urine Culture And 12/19/2018 [facility]rine Culture SEE RESULT BELOW 3, 4 Sensitivities Poc Urinalysis 12/19/2018 [facility] Poc Glucose, Negative Negative Urine Poc Bilirubin, Urine Negative Negative Poc Ketone, Urine Negative Negative Poc Specific [place], Urine 1.025 Normal 1.010-1.030 Poc Blood, Urine Trace-lysed Abnormal Negative Poc pH, Urine 5.5 Normal 5-9 Poc Protein, Urine Negative Negative Poc Urobilinogen, Urine 0.2 Negative Poc Nitrite, Urine Negative Negative Poc Leukocytes, Urine Negative Negative Poc Color, Urine Yellow Poc Clarity, Urine Clear 5 CBC Auto Diff 12/07/2018 [facility] White Blood Count 9.4 10^3/uL Normal 3.5- 10.8 Red Blood Count 4.22 10^6/uL Normal 3.70-4.87 Hemoglobin 12.6 g/dL Normal 12.0-16.0 Hematocrit 37 % Normal 35-47 Mean Corpuscular Volume 88 fL Normal 80-97 Mean Corpuscular Hemoglobin 30 pg Normal 27-31 Mean Corpuscular HGB Conc 34 g/dL Normal 31-36 Red Cell Distribution Width 14 % Normal 10-15 Platelet Count 332 10^3/uL Normal 150-450 Mean Platelet Volume 6.8 fL Low 7.4-10.4 Abs Neutrophils 6.2 10^3/uL Normal 1.5-7.7 Abs Lymphocytes 2.1 10^3/uL Normal 1.0-4.8 Abs Monocytes 0.8 10^3/uL Normal 0-0.8 Abs Eosinophils 0.2 10^3/uL Normal 0-0.6 Abs Basophils 0.1 10^3/uL Normal 0-0.2 Abs Nucleated RBC 0.0 10^3/uL Granulocyte % 66.4 % Lymphocyte % 22.7 % Monocyte % 8.2 % Eosinophil % 1.7 % Basophil % 1.0 % Nucleated Red Blood Cells % 0.0 Laboratory test 12/07/2018 [facility] D Dimer 303 ng/mL High Less Than 6 finding Quantitative 230 Laboratory test 11/30/2018 [facility] TSH 5.260 High 0.270-4.2 finding u[IU]/mL 00 Free Thyroxine 1.20 ng/dL 0.93-1.70 Thyroid Peroxidase Ab 3.1 IU/mL <9.0 Thyroid Stim Immunoglob <0.10 IU/L 0.00-0.55 7 Basic Metabolic Profile 11/26/2018 [facility]) Sodium 140 mEq/L 134-149 Potassium 4.6 mEq/L 3.6-5.5 Chloride 105 mEq/L 94-112 Carbon Dioxide 25 mEq/L 21-32 Glucose 65 mg/dL Low 70-105 8 BUN 16 mg/dL 6-26 Creatinine 0.7 mg/dL 0.6-1.4 BUN/Creat Ratio 22.9 CALC 8.0-36.0 Calcium 10.2 mg/dL 8.6-10.2 GFR Non- >60 ml/min/1.73m^ >=60 GFR >60 ml/min/1.73m^ >=60 Laboratory test 11/26/2018 [facility]) Magnesium, Serum 2.4 mEq/L High 1.2-2.1 9 finding TSH 2.23 mIU/L 0.50-6.00 Free T4 0.95 ng/dL 0.75-1.54 Uric Acid 4.1 mg/dL 2.5-9.2 Laboratory test 11/26/2018 [facility] C-Reactive 3 mg/L 0-[address] Protein, [place] [address] (345)- - Comp Metabolic 10/03/2018 [facility] Sodium 137 Normal 135-145 Panel mmol/L Potassium 3.8 mmol/L Normal 3.5-5.0 Chloride 104 mmol/L Normal 101-111 Co2 Carbon Dioxide 22 mmol/L Normal 22-32 Anion Gap 11 mmol/L Normal 2-11 Glucose 106 mg/dL High 70-100 Blood Urea Nitrogen 17 mg/dL Normal 6-24 Creatinine 0.77 mg/dL Normal 0.51-0.95 BUN/Creatinine Ratio 22.1 High 8-20 Calcium 9.7 mg/dL Normal 8.6-10.3 Total Protein 7.5 g/dL Normal 6.4-8.9 Albumin 4.7 g/dL Normal 3.2-5.2 Globulin 2.8 g/dL Normal 2-4 Albumin/Globulin Ratio 1.7 Normal 1-3 Total Bilirubin 0.40 mg/dL Normal 0.2-1.0 Alkaline Phosphatase 56 U/L Normal 34-104 Alt 12 U/L Normal 7-52 Ast 13 U/L Normal 13-39 Egfr Non- 78.4 >60 Egfr 94.9 >60 11 CBC Auto Diff 10/03/2018 [facility] Blood Count 6.3 10^3/uL Normal 3.5- 10.8 Red Blood Count 4.05 10^6/uL Normal 3.70-4.87 Hemoglobin 12.2 g/dL Normal 12.0-16.0 Hematocrit 36 % Normal 35-47 Mean Corpuscular Volume 89 fL Normal 80-97 Mean Corpuscular Hemoglobin 30 pg Normal 27-31 Mean Corpuscular HGB Conc 34 g/dL Normal 31-36 Red Cell Distribution Width 14 % Normal 10-15 Platelet Count 276 10^3/uL Normal 150-450 Mean Platelet Volume 7.1 fL Low 7.4-10.4 Abs Neutrophils 4.2 10^3/uL Normal 1.5-7.7 Abs Lymphocytes 1.4 10^3/uL Normal 1.0-4.8 Abs Monocytes 0.5 10^3/uL Normal 0-0.8 Abs Eosinophils 0.1 10^3/uL Normal 0-0.6 Abs Basophils 0.1 10^3/uL Normal 0-0.2 Abs Nucleated RBC 0.0 10^3/uL Granulocyte % 66.2 % Lymphocyte % 23.1 % Monocyte % 8.8 % Eosinophil % 0.9 % Basophil % 1.0 % Nucleated Red Blood Cells % 0.1 Urine Culture And Sensitivities 10/03/2018 [facility]rine Culture SEE RESULT BELOW 12 Urinalysis Profile 10/03/2018 [facility] Urine Color Straw Urine Appearance Clear Urine Specific [place] 1.032 High 1.010-1.030 Urine pH 7.0 Normal 5-9 Urine Urobilinogen Negative Negative Urine Ketones Negative Negative Urine Protein Negative Negative Urine Leukocytes Negative Negative Urine Blood 2+ Abnormal Negative Urine Nitrite Negative Negative Urine Bilirubin Negative Negative Urine Glucose Negative Negative Urine White Blood Cell Trace(0-5/hpf) Absent Urine Red Blood Cell 2+(6-10/hpf) Abnormal Absent Urine Bacteria Absent Absent Urine Squamous Epithelial Cell Present Abnormal Absent Laboratory test 10/02/2018 [facility] SEE ATTACHED finding Pathology Laboratory test 10/01/2018 [facility] Clotest SEE RESULT 13 finding BELOW Laboratory test 10/01/2018 [facility] Surgical SEE RESULT 14 finding Pathology BELOW CBC Auto Diff 09/27/2018 [facility] White Blood 7.5 10^3/uL Normal 3.5-1 Count 0.8 Red Blood Count 4.05 10^6/uL Normal 3.70-4.87 Hemoglobin 12.1 g/dL Normal 12.0-16.0 Hematocrit 36 % Normal 35-47 Mean Corpuscular Volume 89 fL Normal 80-97 Mean Corpuscular Hemoglobin 30 pg Normal 27-31 Mean Corpuscular HGB Conc 34 g/dL Normal 31-36 Red Cell Distribution Width 14 % Normal 10-15 Platelet Count 331 10^3/uL Normal 150-450 Mean Platelet Volume 7.3 fL Low 7.4-10.4 Abs Neutrophils 5.1 10^3/uL Normal 1.5-7.7 Abs Lymphocytes 1.8 10^3/uL Normal 1.0-4.8 Abs Monocytes 0.5 10^3/uL Normal 0-0.8 Abs Eosinophils 0.1 10^3/uL Normal 0-0.6 Abs Basophils 0.1 10^3/uL Normal 0-0.2 Abs Nucleated RBC 0.0 10^3/uL Granulocyte % 67.9 % Lymphocyte % 24.1 % Monocyte % 6.4 % Eosinophil % 0.9 % Basophil % 0.7 % Nucleated Red Blood Cells % 0.0 Comp Metabolic Panel 09/27/2018 [facility] Sodium 137 mmol/L Normal 135-145 Potassium 3.4 mmol/L Low 3.5-5.0 Chloride 103 mmol/L Normal 101-111 Co2 Carbon Dioxide 28 mmol/L Normal 22-32 Anion Gap 6 mmol/L Normal 2-11 Glucose 97 mg/dL Normal 70-100 Blood Urea Nitrogen 16 mg/dL Normal 6-24 Creatinine 0.68 mg/dL Normal 0.51-0.95 BUN/Creatinine Ratio 23.5 High 8-20 Calcium 10.2 mg/dL Normal 8.6-10.3 Total Protein 7.3 g/dL Normal 6.4-8.9 Albumin 4.5 g/dL Normal 3.2-5.2 Globulin 2.8 g/dL Normal 2-4 Albumin/Globulin Ratio 1.6 Normal 1-3 Total Bilirubin 0.40 mg/dL Normal 0.2-1.0 Alkaline Phosphatase 52 U/L Normal 34-104 Alt 15 U/L Normal 7-52 Ast 14 U/L Normal 13-39 Egfr Non- 90.5 >60 Egfr 109.5 >60 15 Laboratory test finding 09/27/2018 [facility] Amylase 100 U/L Normal 29-103 Lipase 41 U/L Normal 11.0-82.0 TSH (Thyroid Stim Horm) 2.21 mcIU/mL Normal 0.34-5.60 Urinalysis Profile 09/27/2018 [facility] Urine Color Straw Urine Appearance Clear Urine Specific [place] 1.005 Low 1.010-1.030 Urine pH 9.0 Normal 5-9 Urine Urobilinogen Negative Negative Urine Ketones Negative Negative Urine Protein Negative Negative Urine Leukocytes Trace Abnormal Negative Urine Blood 2+ Abnormal Negative Urine Nitrite Negative Negative Urine Bilirubin Negative Negative Urine Glucose Negative Negative Urine White Blood Cell Trace(0-5/hpf) Absent Urine Red Blood Cell Trace(0-2/hpf) Absent Urine Bacteria Absent Absent Urine Squamous Epithelial Cell Present Abnormal Absent Urine Culture And 09/27/2018 [facility] Culture SEE RESULT 16 Sensitivities BELOW CBC Auto Diff 09/13/2018 [facility] White Blood 6.6 10^3/uL Normal 3.5-10.8 Count Red Blood Count 4.17 10^6/uL Normal 3.70-4.87 Hemoglobin 12.5 g/dL Normal 12.0-16.0 Hematocrit 38 % Normal 35-47 Mean Corpuscular Volume 92 fL Normal 80-97 Mean Corpuscular Hemoglobin 30 pg Normal 27-31 Mean Corpuscular HGB Conc 33 g/dL Normal 31-36 Red Cell Distribution Width 14 % Normal 10-15 Platelet Count 288 10^3/uL Normal 150-450 Mean Platelet Volume 7.0 fL Low 7.4-10.4 Abs Neutrophils 4.6 10^3/uL Normal 1.5-7.7 Abs Lymphocytes 1.4 10^3/uL Normal 1.0-4.8 Abs Monocytes 0.5 10^3/uL Normal 0-0.8 Abs Eosinophils 0.2 10^3/uL Normal 0-0.6 Abs Basophils 0.1 10^3/uL Normal 0-0.2 Abs Nucleated RBC 0.0 10^3/uL Granulocyte % 69.1 % Lymphocyte % 20.4 % Monocyte % 6.8 % Eosinophil % 2.7 % Basophil % 1.0 % Nucleated Red Blood Cells % 0.0 Comp Metabolic Panel 09/13/2018 [facility] Sodium 138 mmol/L Normal 135-145 Potassium 4.2 mmol/L Normal 3.5-5.0 Chloride 104 mmol/L Normal 101-111 Co2 Carbon Dioxide 28 mmol/L Normal 22-32 Anion Gap 6 mmol/L Normal 2-11 Glucose 89 mg/dL Normal 70-100 Blood Urea Nitrogen 13 mg/dL Normal 6-24 Creatinine 0.68 mg/dL Normal 0.51-0.95 BUN/Creatinine Ratio 19.1 Normal 8-20 Calcium 9.8 mg/dL Normal 8.6-10.3 Total Protein 7.3 g/dL Normal 6.4-8.9 Albumin 4.6 g/dL Normal 3.2-5.2 Globulin 2.7 g/dL Normal 2-4 Albumin/Globulin Ratio 1.7 Normal 1-3 Total Bilirubin 0.40 mg/dL Normal 0.2-1.0 Alkaline Phosphatase 57 U/L Normal 34-104 Alt 23 U/L Normal 7-52 Ast 21 U/L Normal 13-39 Egfr Non- 90.5 >60 Egfr 109.5 >60 17 Laboratory test finding 09/13/2018 [facility] Amylase 102 U/L Normal 29-103 Lipase 25 U/L Normal 11.0-82.0 C Reactive Protein 1.70 mg/L Normal <8.01 Lactic Acid 0.7 mmol/L Normal 0.5-2.0 18 Urinalysis Profile 09/13/2018 [facility] Urine Color Straw Urine Appearance Clear Urine Specific [place] 1.005 Low 1.010-1.030 Urine pH 7.0 Normal 5-9 Urine Urobilinogen Negative Negative Urine Ketones Negative Negative Urine Protein Negative Negative Urine Leukocytes Negative Negative Urine Blood 1+ Abnormal Negative Urine Nitrite Negative Negative Urine Bilirubin Negative Negative Urine Glucose Negative Negative Urine White Blood Cell Trace(0-5/hpf) Absent Urine Red Blood Cell Trace(0-2/hpf) Absent Urine Bacteria Absent Absent Urine Squamous Epithelial Cell Present Abnormal Absent Urine Culture And Sensitivities 09/13/2018 [facility] Culture SEE RESULT BELOW 19 1 Optical Instrument Specialist: [id number] Optical Instrument Specialist: [id number] 4 SEE RESULT BELOW Name: NAKIA ZHOU : [address]: Katie Stack MD Acct: [id number] Unit: [id number] AGE: 53 Location: [facility] Re12/19/18 SEX: F Status: DEP ER SPEC: [id number] SUSANA: 12/19/18 [facility] DR: Katie Stack MD REQ: [id number] RECD: 12/20/18 STATUS: JANAE AGUAYO DR: Sidney Alonso MD _ SOURCE: URINE SPDESC: ORDERED: Urine Culture COMMENTS: [id number] QUERIES: Urine Source: Random Procedure Result Reported Site Urine Culture Final 12/21/18- 24 ML No growth of clinically significant organisms * ML - Main Lab . END OF REPORT DEPARTMENT OF PATHOLOGY, [address] [place] [address] Ambrosio Palmer M.D. Director [facility] # [id number] 5 Optical Instrument Specialist: [id number] Please note: The following may produce a false positive D Dimer test: - Rheumatoid factor greater than 60 IU/ml - Plasma hemoglobin greater than 0.05 gm/dl - Bilirubin greater than 50 mg/dl - Lipids greater than 1000 mg/dl - FDP greater than 20 ug/ml 7 (NOTE) Performed At: [facility] [id number] Irineo Xiao MD Ph:[phone] RESULTS VERIFIED BY REPEAT ANALYSIS 9 RESULTS VERIFIED BY REPEAT ANALYSIS 10 11 Because ethnic data is not always readily [...] 15-29 5 Kidney failure <15 (or dialysis) 12 SEE RESULT BELOW Name: NAKIA ZHOU : [address]: Delvin Guerrero MD Acct: [id number] Unit: [id number] AGE: 52 Location: ED Re10/03/18 SEX: F Status: REG ER SPEC: [id number] SUSANA: 10/03/[address]: Lizett BAKER REQ: [id number] RECD: 10/03/18 STATUS: JANAE AGUAYO DR: Sidney Guerrero MD _ SOURCE: URINE SPDESC: ORDERED: Urine Culture Procedure Result Reported Site Urine Culture Final 10/05/18- 08 ML Organism 1 KLEBSIELLA PNEUMONIAE [place] Count 25-50,000 (Moderate) CFU/ML 1. KLEBSIELLA PNEUMONIAE M.I.C. RX --------- ------ Ampicillin >=32 R Cefazolin <=4 S Cefepime <=1 S Ceftriaxone <=1 S Ciprofloxacin <=0.25 S Gentamicin <=1 S Levofloxacin <=0.12 S Meropenem <=0.25 S Nitrofurantoin 32 S Tetracycline <=1 S Pipercillin/Tazobactam <=4 S Trimethoprim/Sulfamethoxazole >=320 R Amoxicillin/Clavulanic Acid 16 I Aztreonam <=1 S Contact the Microbiology Department for any additional antibiotic reporting. * ML - Main Lab . END OF REPORT DEPARTMENT OF PATHOLOGY, [address] [place] [address] Ambrosio Palmer M.D. Director [facility] # [id number] 13 SEE RESULT BELOW Name: NAKIA ZHOU : [address]: Juvenal Yan DO Acct: [id number] Unit: [id number] AGE: 52 Location: ENDO Re10/01/18 SEX: F Status: REG REF SPEC: [id number] SUSANA: 10/01/18 [facility] DR: Juvenal Yan DO REQ: [id number] RECD: 10/01/18 STATUS: JANAE AGUAYO DR: Sidney Alonso MD _ SOURCE: GAS ANTRUM SPDESC: ORDERED: Clotest Procedure Result Reported Site Clotest Final 10/02/18732 ML Clotest Negative * ML - Main Lab . END OF REPORT DEPARTMENT OF PATHOLOGY, [address] [place] [address] Ambrosio Palmer M.D. Director [facility] # [id number] 14 SEE RESULT BELOW Name: NAKIA ZHOU Jacquelyn : [address]: Juvenal Yan DO Acct: [id number] Unit: [id number] AGE: 52 Location: ENDO Re10/01/18 SEX: F Status: REG REF SPEC: [id number] SUSANA: 10/01/[address]: Juvenal Yan DO REQ: [id number] RECD: 10/01/18-8 STATUS: OLIVIA AGUAYO DR: Sidney Reaves MD [...] CONTINUED ON NEXT PAGE DEPARTMENT OF PATHOLOGY, [address] [place] [address] Ambrosio Palmer M.D. Director [facility] # [id number] RUN DATE: 10/02/18 [facility] LAB LIVE PAGE 2 Patient: NAKIA ZHOU [id number] (Continued) CLINICAL HISTORY (Continued) CLINICAL HISTORY Ulcer; [...] CONTINUED ON NEXT PAGE DEPARTMENT OF PATHOLOGY, [address] [place] [address] Ambrosio Palmer M.D. Director [facility] # [id number] RUN DATE: 10/02/18 [facility] LAB LIVE PAGE 3 Patient: NAKIA ZHOU [id number] (Continued) GROSS DESCRIPTION (Continued) 0.3 x 0.2 cm, which are entirely submitted in one cassette. 7. The specimen is received in formalin labeled, Biopsy Rectal Polyp, and consists of a 0.7 x 0.3 x 0.2 cm speckled vanessa-pink irregular to polypoid soft tissue fragment, which is entirely submitted in one cassette. Signed by and Reported on: Denisse Rodriguez MD 10/02/18 135 END OF REPORT DEPARTMENT OF PATHOLOGY, [address] [place] [address] Ambrosio Palmer M.D. Director [facility] # [id number] 15 Because ethnic data is not always readily [...] 15-29 5 Kidney failure <15 (or dialysis) 16 SEE RESULT BELOW Name: NAKIA ZHOU : [address]: Daniel Garcia MD Acct: [id number] Unit: [id number] AGE: 52 Location: ED Re09/27/18 SEX: F Status: DEP ER SPEC: [id number] SUSANA: 09/27/18 [facility] DR: Daniel Garcia MD REQ: [id number] RECD: 09/27/18 STATUS: JANAE AGUAYO DR: Sidney Alonso MD _ SOURCE: URINE SPDESC: ORDERED: Urine Culture Procedure Result Reported Site Urine Culture Final 09/29/18- 1101 ML Mixed agus; possible contamination. Suggest resubmission. * ML - Main Lab . END OF REPORT DEPARTMENT OF PATHOLOGY, [address] [place] [address] Ambrosio Palmer M.D. Director [facility] # [id number] 17 Because ethnic data is not always readily [...] 15-29 5 Kidney failure <15 (or dialysis) 18 [facility] Severe Sepsis and Septic Shock Management Bundle Measure requires all lactic acids initially measuring >2.0 mmol/L be repeated. 19 SEE RESULT BELOW Name: NAKIA ZHOU : [address]: Daniel Garcia MD Acct: [id number] Unit: [id number] AGE: 52 Location: ED Re09/13/18 SEX: F Status: DEP ER SPEC: [id number] SUSANA: 09/13/[address]: Alexys Pugh MD REQ: [id number] RECD: 09/13/18 STATUS: COMP CHARLESHR DR: Sidney Alonso MD [facility] _ SOURCE: URINE SPDESC: ORDERED: Urine Culture Procedure Result Reported Site Urine Culture Final 09/14/18- 1607 ML No Growth (<1,000 CFU/mL) * - Main Lab . END OF REPORT DEPARTMENT OF PATHOLOGY, [address] [place] [address] Ambrosio Palmer M.D. Director [facility] # [id number] Procedures Date Code Description Status 10/01/2018 [id number] Colonoscopy Completed 10/01/2017 [id number] Mammogram Completed 10/20/2015 [id number] Mammogram Completed 08/23/2013 [id number] Colonoscopy Completed 10/19/2009 [id number] Mammogram Completed 02/01/2009 60799374 Colonoscopy Completed 03/05/2007 [id number] Mammogram Completed Medical Devices Description No Information Available Encounters Type Date Location Provider Dx Diagnosis Office Visit 11/26/2018 [facility] Sidney Alonso M.D. R00.2 Palpitations 2:20p M06.4 Inflammatory polyarthropathy M05.89 Oth rheumatoid arthritis w rheumatoid factor mult site Office Visit 10/05/2018 3:30p Main Office Macey Garcia K21.0 Gastro- esophageal Arevalo, [employer] reflux disease with esophagitis R05 Cough N81.4 Uterovaginal prolapse, unspecified Assessments Date Code Description Provider 12/30/2018 M06.4 Inflammatory polyarthropathy Marianela Andre M.D. 12/30/2018 M32.9 Systemic lupus erythematosus, unspecified Marianela Andre M.D. 12/30/2018 K50.80 Crohn's disease of both small and large Marianela Andre M.D. intestine without complications 12/30/2018 M05.89 Other rheumatoid arthritis with rheumatoid Marianela Andre M.D. factor of multiple sites 12/30/2018 R51 Headache Marianela Andre M.D. 12/30/2018 G54.0 Brachial plexus disorders Marianela Andre M.D. 12/30/2018 H93.A1 Pulsatile tinnitus, right ear Marianela Andre M.D. 12/30/2018 J06.9 Acute upper respiratory infection, Marianela Andre M.D. unspecified 11/26/2018 R00.2 Palpitations Sidney Alonso M.D. 11/26/2018 M06.4 Inflammatory polyarthropathy Sidney lAonso M.D. 11/26/2018 M05.89 Other rheumatoid arthritis with rheumatoid Sidney Alonso M.D. factor of multiple sites 10/27/2018 Z00.01 Adult health examination Sidney Alonso M.D. 10/27/2018 M05.89 Other rheumatoid arthritis with rheumatoid Sidney Alonso M.D. factor of multiple sites 10/27/2018 M32.9 Systemic lupus erythematosus, unspecified Sidney Alonso M.D. 10/27/2018 N81.4 Uterovaginal prolapse, unspecified Sidney Alonso M.D. 10/27/2018 K21.0 Gastro-esophageal reflux disease with Sidney Alonso M.D. esophagitis 10/27/2018 K50.80 Crohn's disease of both small and large Sidney Alonso M.D. intestine without complications 10/05/2018 K21.0 Gastro-esophageal reflux disease with Macey Arevalo, JENNIFER esophagitis 10/05/2018 R05 Cough Macey Arevalo, MANAGER ETHICS 10/05/2018 N81.4 Uterovaginal prolapse, unspecified Macey Arevalo, JENNIFER 09/22/2018 Z11.1 Encounter for screening for respiratory Sidney Alonso M.D. tuberculosis Plan of Treatment 12/30/2018 - Marianela Andre M.D.M06.4 Inflammatory ptpoldmukgdrxgzY78.9 Systemic lupus erythematosus, gxevxqgmixgG12.80 Crohn's disease of both small and large intestine without qhmuyvbfkszjeU21.89 Other rheumatoid arthritis with rheumatoid factor of multiple oayurT04 HeadacheComments:check MRA brain/ concern dural sinus thrombosis/aneurysm/bleed; given urgency sent pt to ER to have study done, gave report to MD , has prior hx of aneurysm of jugular , vascular issuespt to go to ERG54.0 Brachial plexus disordersComments:[facility]er [facility] per pt utsuxazG61.A1 Pulsatile tinnitus, right earComments:given worsening, concern for vascular issue, sent to ER for urgent MRA of head/neckJ06.9 Acute upper respiratory infection, unspecifiedAllComments: Medication Management Patient Understands medications she's taking? Yes No Are there Barriers to Adherence? Yes No Has the patient been asked about herbal supplements and therapies, and OTC meds? Yes No Functional Status Description No Information Available Mental Status Description No Information Available Referrals Refer to Reason for Referral Status Appt Date Lavonne Erwin persistent cough jw Scheduled 12/14/[address] [place] [address] [phone] [place] [facility] Holter and Echocardiogram dx palpitations jw Sent [address] [place] [address] [phone] [facility] [place] Consult and treat. LT Sent [address] [place] [address] [phone] Juvenal Yan DO colonoscopy Scheduled 08/28/[address] [place] [address] [phone]
--- OUTSIDE RECORDS SUMMARY | 2018-12-30 13:00 | XMS REPORT | Continuity of Care Document ---
:1965 External Reference #:[id number] Author Name Kendall Javier MD (transmitted by agent of provider Mónica Villareal) Address [address] [place] [id number] Care Team Providers Name Role Phone Sidney Alonso MD - Family Medicine Care Team Information [place] Commissioner [phone] Problems Active Problems Provider Date Localized, primary [...] Use Denies Drug Use Smoking Status Reviewed: 12/29/18 Patient has never smoked Exercise Type/Frequency Exercises regularly Allergies, Adverse Reactions, Alerts Active Allergies Reaction Severity Comments Date Sulfa Antibiotics neuropathy 01/21/2017 Vancomycin hives 01/21/2017 Dairy 01/21/2017 Medications Active Medications SIG Qnty Indications Ordering Date Provider Hydroxychloroquine Sulfate take one tablet Unknown 200mg by mouth twice a Tablets day Epipen 2-Arnie use as directed Unknown 0.3mg/0.3ML Solution Auto-Inject Tumeric daily Unknown [place] 3 2 tabs daily Unknown 1200mg Capsules [...] Available Vital Signs Date Vital Result Comment 12/29/2018 3:14pm Height 68 inches 5'8" Weight 152.00 lb Heart Rate 81 /min Respiratory Rate 14 /min Body Temperature 99.0 F Pain Level 6 BMI (Body Mass Index) 23.1 kg/m2 12/14/2018 7:39am Height 68 inches 5'8" Weight 152.00 lb Heart Rate 67 /min BP Systolic Sitting 138 mmHg BP Diastolic Sitting 80 mmHg O2 % BldC Oximetry 89 % BMI (Body Mass Index) 23.1 kg/m2 Neck Circumference in inches 12.5 Results Test Date Facility Test Result H/L Range Note Laboratory test 10/02/2018 [facility] Cytology SEE RESULT [address] [place] [address] [phone] Laboratory test 10/01/2018 [facility] Surgical SEE RESULT [address] [place] [address] [phone] Xray 09/14/2018 [facility] Inj/Aspir Major <pending> JT Or Kenrick W/ US 1 SEE RESULT BELOW Name: NAKIA TAY : [address]: William Reaves MD Acct: [id number] Unit: [id number] AGE: 52 Location: Re10/02/18 SEX: F Status: REG REF SPEC: [id number] SUSANA: 10/02/18 [facility] DR: William Reaves MD REQ: [id number] RECD: 10/02/18 STATUS: OLIVIA AGUAYO DR: Easton Kumar MD _ ORDERED: FNA-IMG GUID BX, CYTO ADEQ-1ST P FINAL DIAGNOSIS Thyroid, right, Ultrasound guided, fine needle aspiration: -- Benign thyroid nodule, colloid/hyperplastic ([place] class II). The specimen demonstrates abundant watery [...] CONTINUED ON NEXT PAGE DEPARTMENT OF PATHOLOGY, [address] [place] [address] Ambrosio Palmer M.D. Director [facility] # [id number] RUN DATE: 10/05/18 [facility] LAB LIVE PAGE 2 Patient: NAIKA TAY [id number] (Continued) IMMEDIATE INTERPRETATION (Continued) IMMEDIATE INTERPRETATION Pass 1-adequate. GROSS DESCRIPTION Ultrasound guided, fine needle aspiration x 1 pass with 1 alcohol fixed slide (s). Signed by and Reported on: Ambrosio Palmer MD 07/19 1435 END OF REPORT DEPARTMENT OF PATHOLOGY, [address] [place] [address] Ambrosio Palmer M.D. Director [facility] # [id number] 2 SEE RESULT BELOW Name: NAKIA TAY : [address]: Juvenal Yan DO Acct: [id number] Unit: [id number] AGE: 52 Location: ENDO Re10/01/18 SEX: F Status: REG REF SPEC: [id number] SUSANA: 10/01/18 [facility] DR: Juvenal Yan DO REQ: [id number] RECD: 10/01/18 STATUS: OLIVIA AGUAYO DR: Sidney [...] CONTINUED ON NEXT PAGE DEPARTMENT OF PATHOLOGY, [address] [place] [address] Ambrosio Palmer M.D. Director [facility] # [id number] RUN DATE: 10/02/18 [facility] LAB LIVE PAGE 2 Patient: NAKIA TAY Jacquelyn [id number] (Continued) CLINICAL HISTORY (Continued) CLINICAL HISTORY Ulcer; [...] CONTINUED ON NEXT PAGE DEPARTMENT OF PATHOLOGY, [address] [place] [address] Ambrosio Palmer M.D. Director [facility] # [id number] RUN DATE: 10/02/18 [facility] LAB LIVE PAGE 3 Patient: NAKIA TAY [id number] (Continued) GROSS DESCRIPTION (Continued) 0.3 x 0.2 [...] 1351 END OF REPORT DEPARTMENT OF PATHOLOGY, [address] [place] [address] Ambrosio Palmer M.D. Director [facility] # [id number] Procedures Date Code Description Status 12/21/2018 16007 Holter Monitor Review (24 hr)dr tierra & interp only Completed 12/18/2018 93370 ECHO Transthoracic, Real-Time 2D With Doppler And Color Completed Flow 12/18/2018 10904 ECHO Transthoracic, Real-Time 2D With Doppler And Color Completed Flow 12/18/2018 70882 ECG Monitor/Recording W/Visual Superimposition Scanning Completed 12/01/2018 62870 Inject/Drain Joint/Bursa Small W/O US Completed 12/01/2018 90412 Inject Tendon Sheath Or Ligament Aponeurosis Eg Plantar Completed Fascia 12/01/2018 15324 Inject Tendon Sheath Or Ligament Aponeurosis Eg Plantar Completed Fascia 12/01/2018 82810 Inject Tendon Sheath Or Ligament Aponeurosis Eg Plantar Completed Fascia 12/01/2018 01428 Inject Tendon Sheath Or Ligament Aponeurosis Eg Plantar Completed Fascia 10/12/2018 64819 Inject/Drain Joint/Bursa Major W/O US Completed 09/14/2018 28931 Inj/Aspir Major JT Or Bursa W/ US Completed Medical Devices Description No Information Available Encounters Type Date Location Provider Dx Diagnosis Office Visit 12/14/2018 [facility] Lavonne Erwin MD R05 Cough 8:00a [facility] R91.8 Other nonspecific abnormal finding of lung field J45.909 Unspecified asthma, uncomplicated G47.9 Sleep disorder, unspecified Office Visit 09/14/2018 1:30p [facility] Marcela Jhony, M25.562 Pain in left at [facility] M.D. knee M25.462 Effusion, left knee M17.12 Unilateral primary osteoarthritis, left knee M06.9 Rheumatoid arthritis, unspecified M32.10 Systemic lupus erythematosus, organ or system involv unsp M79.7 Fibromyalgia M25.552 Pain in left hip M16.12 Unilateral primary osteoarthritis, left hip Assessments Date Code Description Provider 12/21/2018 R00.2 Palpitations Francisco J Tesfaye M.D. 12/18/2018 R00.2 Palpitations Bony Hunt M.D. 12/18/2018 R00.2 Palpitations Nurse Visit IC 12/18/2018 R00.2 Palpitations Traveling ECHO 2 12/14/2018 R05 Cough Lavonne Erwin MD 12/14/2018 R91.8 Other nonspecific abnormal finding of Lavonne Erwin MD lung field 12/14/2018 J45.909 Unspecified asthma, uncomplicated Lavonne Erwin MD 12/14/2018 G47.9 Sleep disorder, unspecified Lavonne Erwin MD 12/01/2018 M05.142 Rheumatoid lung disease with Kendall Javier MD rheumatoid arthritis of left hand 12/01/2018 M65.331 Trigger [...] Booker M.D. 10/12/2018 M17.12 Unilateral primary osteoarthritis, Marcela Booker M.D. left knee 10/12/2018 M06.9 Rheumatoid arthritis, unspecified Marcela Booker M.D. 10/12/2018 M32.10 Systemic lupus erythematosus, organ or Marcela Booker M.D. system involvement un 10/12/2018 M79.7 Fibromyalgia Marcela Booker M.D. 09/14/2018 M25.562 Pain in left knee Marcela Jhony, M.D. 09/14/2018 M25.462 Effusion, left knee Marcela Booker M.D. 09/14/2018 M17.12 Unilateral primary osteoarthritisMarcela M.D. left knee 09/14/2018 M06.9 Rheumatoid arthritis, unspecified Marcela Booker M.D. 09/14/2018 M32.10 Systemic lupus erythematosus, organ or Marcela Booker M.D. system involvement un 09/14/2018 M79.7 Fibromyalgia Marcela Booker M.D. 09/14/2018 M25.552 Pain in left hip Marcela Booker M.D. 09/14/2018 M16.12 Unilateral primary osteoarthritisMarcela M.D. left hip Plan of Treatment Future Appointment(s):01/27/2019 10:30 am - Lavonne Erwin MD at [facility] Functional Status Description No Information Available Mental Status Description No Information Available Referrals Description No Information Available
--- NOTE | 2018-12-30 16:10 | ED ---
Headache - HPI Summary HPI Summary: Pt is a 53 y/o F presenting to the ED with a chief complaint of a headache. She notes hx of Crohns, Lupus, RA, and thoracic outlet syndrome. 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 She has had an MRA and CT that say contradicting things, but she was sent here to have another MRA of her head done by her physician in [facility]. She notes pulsatile tinnitus, headache, and some sore throat. Headache began 7 days ago, waxes and wanes and symptoms. She states occasionally as a pressure in the left lower forehead, no photophobia or phonophobia. No fevers. No jaw claudication or temporal pain. States she's been worked up extensively in [facility]. - History Of Current Complaint Chief Complaint: EDHeadache Stated Complaint: SEVERE HEADACHE PER PT Time Seen by Provider: 12/30/18 15:59 Hx Obtained From: Patient Hx Last Menstrual Period: just had uterus taken out Onset/Duration: Gradual Onset, Started days ago, Still Present Initially Headache Was: Moderate Currently Pain Is: Severe Timing: Constant, Days Location of Headache: Diffuse Aggravating Factor: Nothing Allevating Factors: Nothing Associated Signs And Symptoms: Neck Pain, Other (Noted In Comments) - pulsatile tinnitus - Allergies/Home Medications Allergies/Adverse Reactions: Allergies Allergy/AdvReac Type Severity Reaction Status Date / Time levofloxacin [From Levaquin] Allergy Anaphylatic Verified 12/26/18 17:44 Shock omeprazole Allergy Anaphylatic Verified 12/26/18 17:44 Shock vancomycin AdvReac Hives Verified 12/26/18 17:44 Home Medications: Home Medications ALPRAZolam TAB* [Xanax TAB*] 1 mg PO BID PRN MDD 2 mg 12/30/18 [History Confirmed 12/30/18] EPINEPHrine [Epipen 2-Arnie] 0.3 mg IM DAILY PRN 12/30/18 [History Confirmed 12/30] Estradiol VAG CM (NF) [Estrace VAG CM (NF)] 1 applic VAGINAL DAILY 12/30/18 [ History Confirmed 12/30/18] PMH/Surg Hx/FS Hx/Imm Hx Previously Healthy: Yes Endocrine/Hematology History: Reports: Hx Blood Disorders - mild von willebrands , Hx Systemic Lupus Erythematosus Denies: Hx Diabetes Cardiovascular History: Denies: Hx Congestive Heart Failure, Hx Hypertension, Hx Pacemaker/ICD Respiratory History: Reports: Hx Asthma - mild seasonal, Hx Sleep Apnea GI History: Reports: Hx Crohn's Disease, Other GI Disorders - CROHN'S DISEASE History: Denies: Hx Dialysis, Hx Renal Disease Musculoskeletal History: Reports: Hx Arthritis, Hx Rheumatoid Arthritis, Other Musculoskeletal History - RA Sensory History: Denies: Hx Eye Prosthesis, Hx Legally Blind, Hx Deafness, Hx Hearing Aid Opthamlomology History: Denies: Hx Eye Prosthesis, Hx Legally Blind Neurological History: 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 Psychiatric History: Denies: Hx Panic Disorder - Cancer History Hx Chemotherapy: No - Surgical History Surgery Procedure, Year, and Place: ovarian cyst, lypoma removal, rheumatoid nodule right foot. BILATERAL CARPAL TUNNEL. RIGHT ELBOW NERVE RELEASE. HYSTERECTOMY 6 weeks ago Infectious Disease History: No Infectious Disease History: Reports: Hx of Known/Suspected MRSA Denies: Traveled Outside the [place] in Last 30 Days - Family History Known Family History: Positive: Cardiac Disease, Hypertension, Non-Contributory Negative: Blood Disorder Family History: RA, psoriasis - Social History Alcohol Use: None Alcohol Amount: 2-3 drinks/year Hx Substance Use: No Substance Use Type: Reports: None Hx Tobacco Use: No Smoking Status (MU): Never Smoked Tobacco Review of Systems Positive: Sore Throat, Other - pulsatile tinnitus Positive: Headache All Other Systems Reviewed And Are Negative: Yes Physical Exam - Summary Physical Exam Summary: Constitutional: Well-developed, Well-nourished, Alert. (-) Distressed Skin: Warm, Dry HENT: Normocephalic; Atraumatic. No jaw or temporal tenderness. Eyes: Conjunctiva normal Neck: Musculoskeletal ROM Vascular malformation of R neck. (-) JVD, (-) Stridor , (-) Nuchal rigidity Cardio: Rhythm regular, rate normal, Heart sounds normal; Intact distal pulses; Radial pulses are 2+ and symmetric. (-) Murmur Pulmonary/Chest wall: Effort normal. (-) Respiratory distress, (-) Wheezes, (-) Rales Abd: Soft, (-) tenderness, (-) Distension, (-) Guarding, (-) Rebound Musculoskeletal: (-) Edema Lymph: (-) Cervical adenopathy Neuro: Alert, Oriented x3 Psych: Mood and affect Normal Triage Information Reviewed: Yes Vital Signs On Initial Exam: Initial Vitals Temp Pulse Resp BP Pulse Ox 99.2 F 77 14 142/80 100 12/30/18 12:43 12/30/18 12:43 12/30/18 12:43 12/30/18 12:43 12/30/18 12:43 Vital Signs Reviewed: Yes Procedures - Sedation Patient Received Moderate/Deep Sedation with Procedure: No Diagnostics - Vital Signs Vital Signs Temp Pulse Resp BP Pulse Ox 12/30/18 15:08 98.6 F 79 16 142/100 100 12/30/18 12:43 99.2 F 77 14 142/80 100 - Laboratory Result Diagrams: 12/30/18 16:37 12/30/18 16:37 Lab Statement: Any lab studies that have been ordered have been reviewed, and results considered in the medical decision making process. - Radiology MRA Radiology Interpretation Completed By: Radiologist Summary of Radiographic Findings: Normal noncontrast head MRA. ED physician has reviewed this report. Re-Evaluation - Re-Evaluation 1st re-eval Re-Evaluation Time: 19:30 Change: Unchanged Comment: Pt's ESR is 37. Previously it was 26. Patient updated. She denies jaw pain or temporal pain to palpation. She states shes going to get a doppler US in [facility] for further workup. Lower suspicion for TA. No eye symptoms. 2nd re-eval Re-Evaluation Time: 20:46 Change: Improved Comment: Pt is feeling better, would like a dose of Toradol before she leaves. 3rd re-eval Re-Evaluation Time: 21:32 Change: Improved Comment: Pt feels much better. Will f/u w MD in [facility] Headache Course/Dx - Course Course Of Treatment: 53 y/o F w complicated hx including lupus, thoracic outlet syndrome, recent workup for vascular malformation p/w headache for 7 days. - patient has extensive workup elsewhere, being worked up for vascular malformations, temporal arteritis, sees a specialist in [facility]. - requesting MRA from MD in [facility] to r/o aneurysm. Does not have infectious symptoms, not worst headache of life, no nuchal rigidity. - will check MRA, treat symptomatically. - Diagnoses Provider Diagnoses: Headache Discharge ED - Sign-Out/Discharge Documenting (check all that apply): Patient Departure - Discharge Plan Condition: Stable Disposition: HOME Referrals: Sidney Alonso MD [Primary Care Provider] - Additional Instructions: You were seen in the emergency department for a headache. Your ESR is 37, your CRP was normal. Her head MRA did not show any acute abnormalities. If any studies were not completed at the time of discharge you will be called with the relevant results. Please follow up with your primary care doctor in next 2-3 days and return to emergency department for worsening headaches, jaw pain, trouble chewing, fevers or concerning symptoms. It was a pleasure taking care of you today. - Billing Disposition and Condition Condition: STABLE Disposition: Home - Attestation Statements Document Initiated by Amnaibalycia: Yes Documenting Scribe: Leila Gates Provider For Whom Willa is Documenting (Include Credential): Maritza Paulson MD. Scribe Attestation: ILeila, scribed for Maritza Paulson MD. on 01/01/19 at 1034. Scribe Documentation Reviewed: Yes Provider Attestation: The documentation as recorded by the scribe, Leila Gates accurately reflects the service I personally performed and the decisions made by me, Maritza Paulson MD. Status of Scribe Document: Viewed
[2018-12-30 16:48] LABS: ABS Lymphocytes 0.9 10^3/ul (1.0-4.8); ABS Monocytes 0.7 10^3/ul (0-0.8); ABS Neutrophils 11.1 10^3/ul (1.5-7.7); Hematocrit 36 % (35-47); Lymphocyte % 7.3 %; Mean Corpuscular HGB Conc 33 g/dL (31-36); Mean Corpuscular Hemoglobin 30 pg (27-31); Mean Corpuscular Volume 89 fL (80-97); Mean Platelet Volume 6.8 fL (7.4-10.4); Platelet Count 371 10^3/uL (150-450); Red Blood Count 4.05 10^6 /uL (3.70-4.87); Red Cell Distribution Width 14 % (10-15); White Blood Count 12.8 10^3/uL (3.5-10.8)
[2018-12-30 17:04] LABS: Albumin 4.4 g/dL (3.2-5.2); Albumin/Globulin Ratio 1.4 (1-3); BUN/Creatinine Ratio 22.2 (8-20); C Reactive Protein 4.91 mg/L (<8.01); Calcium 9.9 mg/dL (8.6-10.3); EGFR African American 119.2 (>60); EGFR Non-African American 98.5 (>60); Globulin 3.1 g/dL (2-4); Potassium 3.8 mmol/L (3.5-5.0); Total Bilirubin 0.4 mg/dL (0.2-1.0); Total Protein 7.5 g/dL (6.4-8.9)
[2018-12-30 19:18] LABS: Erythrocyte Sed Rate 37 mm/Hr (0-29)
[2018-12-30] MEDS ORDERED: NS 0.9% 1000 ML** 1,000 ML IV ONE (19:36)
[2018-12-30] MEDS ORDERED: Metoclopramide IV* 5 MG/ML 2 ML VIAL IV SLOW PU ONE (19:36)
[2018-12-30] MEDS ORDERED: Acetaminophen TAB* 325 MG PO ONE (19:36)
[2018-12-30] MEDS ORDERED: diPHENhydraMINE PO* 25 MG PO ONE (19:36)
[2018-12-30] MEDS ORDERED: Magnesium Sulfate 2 GM IV* 2 GM/50 ML BAG IVPB ONE (20:25)
[2018-12-30] MEDS ORDERED: Ketorolac INJ* 30 MG/ML 1 ML VIAL IV ONE (20:46)
[2018-12-30 22:14] VITALS: BP 101/67
== END 2018-12-30 22:05 | disposition home or self-care (01) ==
LOC: ED 12:38
DX: R51 Headache (principal); D68.0 Von Willebrand disease; M32.9 Systemic lupus erythematosus, unspecified; K50.90 Crohn's disease, unspecified, without complications; Z90.710 Acquired absence of both cervix and uterus; Z79.899 Other long term (current) drug therapy; Z88.1 Allergy status to other antibiotic agents; Z88.8 Allergy status to other drugs, medicaments and biological substances
CPT/HCPCS: 36415; 70544; 80053; 85025; 85652; 86140; 96361; 96374; 96375; 99282; A9270-GY; J1885; J2765; J3475

== ENCOUNTER 2019-01-06 23:21 | Emergency (ER) | payer MEDICARE, MEDICAID ==
[2019-01-07 00:46] LABS: ABS Basophils 0.1 10^3/ul (0-0.2); ABS Eosinophils 0.1 10^3/ul (0-0.6); ABS Lymphocytes 2.3 10^3/ul (1.0-4.8); ABS Monocytes 0.9 10^3/ul (0-0.8); Eosinophil % 1.2 %; Hematocrit 35 % (35-47); Hemoglobin 11.7 g/dL (12.0-16.0); Lymphocyte % 24.8 %; Mean Corpuscular HGB Conc 33 g/dL (31-36); Mean Corpuscular Hemoglobin 30 pg (27-31); Mean Corpuscular Volume 89 fL (80-97); Mean Platelet Volume 6.6 fL (7.4-10.4); Platelet Count 360 10^3/uL (150-450); Red Blood Count 3.97 10^6 /uL (3.70-4.87); Red Cell Distribution Width 14 % (10-15); White Blood Count 9.4 10^3/uL (3.5-10.8)
[2019-01-07 01:07] LABS: Albumin 4.4 g/dL (3.2-5.2); Albumin/Globulin Ratio 1.6 (1-3); BUN/Creatinine Ratio 29.8 (8-20); Calcium 10.3 mg/dL (8.6-10.3); EGFR African American 85.5 (>60); EGFR Non-African American 70.7 (>60); Globulin 2.8 g/dL (2-4); Potassium 3.9 mmol/L (3.5-5.0); Total Bilirubin 0.3 mg/dL (0.2-1.0); Total Protein 7.2 g/dL (6.4-8.9)
[2019-01-07] MEDS ORDERED: Diazepam TAB(*) 5 MG PO ONE (01:07)
--- NOTE | 2019-01-07 01:16 | ED ---
Complex/Multi-Sys Presentation - HPI Summary HPI Summary: Patient complains of bilateral lower extremity pain and swelling, difficulty ambulating due to pain of lower extremities, mild SOB 1 day, and ongoing chronic headache. Swelling resolved prior to arrival in bilateral lower extremities with use of compression socks. Patient has shooting pain originating behind left knee shooting down to foot which is intermittent, lasts seconds at a time and feels like a "toothache". This pain is generally improved with ambulation. Also generalized aching in right lower extremity. Denies trauma. Also has right lower back pain 2 hours. Also complains of increased urinary frequency today. Denies fever, cough, sore throat, CP, and/V/ D, abdominal pain, change in BM. Patient has been evaluated for ongoing headache with multiple MRIs and MRAs and CTs. Patient is also on estradiol, history of 15 hour car ride 2 days ago, recent pelvic floor surgery 2 months ago. Competent medical history includes Crohn's, lupus, RA, thoracic outlet syndrome. - History Of Current Complaint Chief Complaint: EDGeneral Time Seen by Provider: 01/07/19 00:46 Hx Obtained From: Patient, Family/Workers Compensation Claims Analyst Onset/Duration: Sudden Onset Timing: Intermittent, Lasting:, Seconds Severity Currently: Moderate Severity Initially: Moderate Character: Dull, Throbbing Associated Signs And Symptoms: Positive: SOB, Back Pain - Allergies/Home Medications Allergies/Adverse Reactions: Allergies Allergy/AdvReac Type Severity Reaction Status Date / Time levofloxacin [From Levaquin] Allergy Anaphylatic Verified 01/06/19 23:26 Shock omeprazole Allergy Anaphylatic Verified 01/06/19 23:26 Shock vancomycin AdvReac Hives Verified 01/06/19 23:26 PMH/Surg Hx/FS Hx/Imm Hx Endocrine/Hematology History: Reports: Hx Blood Disorders - mild von willebrands , Hx Systemic Lupus Erythematosus Denies: Hx Diabetes Cardiovascular History: Denies: Hx Congestive Heart Failure, Hx Hypertension, Hx Pacemaker/ICD Respiratory History: Reports: Hx Asthma - mild seasonal, Hx Sleep Apnea GI History: Reports: Hx Crohn's Disease, Other GI Disorders - CROHN'S DISEASE History: Denies: Hx Dialysis, Hx Renal Disease Musculoskeletal History: Reports: Hx Arthritis, Hx Rheumatoid Arthritis, Other Musculoskeletal History - RA Sensory History: Denies: Hx Eye Prosthesis, Hx Legally Blind, Hx Deafness, Hx Hearing Aid Opthamlomology History: Denies: Hx Eye Prosthesis, Hx Legally Blind Neurological History: 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 Psychiatric History: Denies: Hx Panic Disorder - Cancer History Hx Chemotherapy: No - Surgical History Surgery Procedure, Year, and Place: ovarian cyst, lypoma removal, rheumatoid nodule right foot. BILATERAL CARPAL TUNNEL. RIGHT ELBOW NERVE RELEASE. HYSTERECTOMY 6 weeks ago Infectious Disease History: No Infectious Disease History: Reports: Hx of Known/Suspected MRSA Denies: Traveled Outside the [place] in Last 30 Days - Family History Known Family History: Positive: Cardiac Disease, Hypertension, Non-Contributory Negative: Blood Disorder Family History: RA, psoriasis - Social History Alcohol Use: None Alcohol Amount: 2-3 drinks/year Hx Substance Use: No Substance Use Type: Reports: None Hx Tobacco Use: No Smoking Status (MU): Never Smoked Tobacco Review of Systems Constitutional: Negative Eyes: Negative ENT: Negative Cardiovascular: Negative Positive: Shortness Of Breath Gastrointestinal: Negative Genitourinary: Negative Musculoskeletal: Other Skin: Negative Neurological: Negative Psychological: Normal All Other Systems Reviewed And Are Negative: Yes Physical Exam - Summary Physical Exam Summary: No swelling, erythema, ecchymosis, deformity noted to bilateral lower extremities. Bilateral calves soft, nontender to palpation. Bilateral thighs soft, nontender to palpation. Left knee nontender to palpation. Symptoms of posterior left knee pain cannot be reproduced with palpation or pressure. PMS intact bilateral lower extremities. Full range of motion of each individual joint of bilateral lower extremities. Tenderness to palpation of paraspinal muscles of lower right-sided back. No bony point tenderness. Lung sounds clear to auscultation bilaterally. Abdomen soft nontender. Triage Information Reviewed: Yes Vital Signs On Initial Exam: Initial Vitals Temp Pulse Resp BP Pulse Ox 98.2 F 82 16 159/96 100 01/06/19 23:23 01/06/19 23:23 01/06/19 23:23 01/06/19 23:23 01/06/19 23:23 Vital Signs Reviewed: Yes Appearance: Positive: Well-Appearing Skin: Positive: Warm Head/Face: Positive: Normal Head/Face Inspection Eyes: Positive: Normal Neck: Positive: Supple Respiratory/Lung Sounds: Positive: Clear to Auscultation Cardiovascular: Positive: Normal Abdomen Description: Positive: Nontender Musculoskeletal: Positive: Normal Neurological: Positive: Normal Psychiatric: Positive: Normal AVPU Assessment: Alert - [place] Coma Scale Best Eye Response: 4 - Spontaneous Best Motor Response: 6 - Obeys Commands Best Verbal Response: 5 - Oriented Coma Scale Total: 15 Procedures - Sedation Patient Received Moderate/Deep Sedation with Procedure: No Diagnostics - Vital Signs Vital Signs Temp Pulse Resp BP Pulse Ox 01/06/19 23:23 98.2 F 82 16 159/96 100 - Laboratory Lab Results: Lab Results 01/07/19 01/07/19 Range/Units 00:40 00:40 WBC 9.4 (3.5-10.8) 10^3/uL RBC 3.97 (3.70-4.87) 10^6 /uL Hgb 11.7 L (12.0-16.0) g/dL Hct 35 (35-47) % MCV 89 (80-97) fL MCH 30 (27-31) pg MCHC 33 (31-36) g/dL RDW 14 (10-15) % Plt Count 360 (150-450) 10^3/uL MPV 6.6 L (7.4-10.4) fL Neut % (Auto) 63.5 % Lymph % (Auto) 24.8 % [place] % (Auto) 9.5 % Eos % (Auto) 1.2 % Baso % (Auto) 1.0 % Absolute Neuts (auto) 6.0 (1.5-7.7) 10^3/ul Absolute Lymphs (auto) 2.3 (1.0-4.8) 10^3/ul Absolute Monos (auto) 0.9 H (0-0.8) 10^3/ul Absolute Eos (auto) 0.1 (0-0.6) 10^3/ul Absolute Basos (auto) 0.1 (0-0.2) 10^3/ul Absolute Nucleated RBC 0.0 10^3/ul Nucleated RBC % 0.0 Sodium 138 (135-145) mmol/L Potassium 3.9 (3.5-5.0) mmol/L Chloride 105 (101-111) mmol/L Carbon Dioxide 27 (22-32) mmol/L Anion Gap 6 (2-11) mmol/L BUN 25 H (6-24) mg/dL Creatinine 0.84 (0.51-0.95) mg/dL Est GFR ( Amer) 85.5 (>60) Est GFR (Non-Af Amer) 70.7 (>60) BUN/Creatinine Ratio 29.8 H (8-20) Glucose 89 (70-100) mg/dL Calcium 10.3 (8.6-10.3) mg/dL Total Bilirubin 0.30 (0.2-1.0) mg/dL AST 13 (13-39) U/L ALT 13 (7-52) U/L Alkaline Phosphatase 56 (34-104) U/L Troponin I 0.00 (<0.04) ng/mL Total Protein 7.2 (6.4-8.9) g/dL Albumin 4.4 (3.2-5.2) g/dL Globulin 2.8 (2-4) g/dL Albumin/Globulin Ratio 1.6 (1-3) Result Diagrams: 01/07/19 00:40 01/07/19 00:40 Lab Statement: Any lab studies that have been ordered have been reviewed, and results considered in the medical decision making process. Complex Multi-Symp Course/Dx Course Of Treatment: Patient complains of bilateral lower extremity pain and swelling, difficulty ambulating due to pain of lower extremities, mild SOB 1 day, and ongoing chronic headache. Swelling resolved prior to arrival in bilateral lower extremities with use of compression socks. Patient has shooting pain originating behind left knee shooting down to foot which is intermittent, lasts seconds at a time and feels like a "toothache". This pain is generally improved with ambulation. Also generalized aching in right lower extremity. Denies trauma. Also has right lower back pain 2 hours. Also complains of increased urinary frequency today. Denies fever, cough, sore throat, CP, and/V/D, abdominal pain, change in BM. Patient has been evaluated for ongoing headache with multiple MRIs and MRAs and CTs. Patient is also on estradiol, history of 15 hour car ride 2 days ago, recent pelvic floor surgery 2 months ago. Competent medical history includes Crohn's, lupus, RA, thoracic outlet syndrome. Vital signs within normal limits. Labs unremarkable. Chest x -ray unremarkable. EKG sinus rhythm, heart rate 67, normal P axis. Consistent with prior. Blood clot in lower extremities statistically unlikely due to bilateral lower extremity pain and negative physical exam. Symptoms improved with Valium 5 mg by mouth. Rx for same. - Diagnoses Provider Diagnoses: Muscle spasm Discharge ED - Sign-Out/Discharge Documenting (check all that apply): Patient Departure - Discharge Plan Condition: Stable Disposition: HOME Patient Education Materials: Muscle Spasm (ED) Referrals: Sidney Alonso MD [Primary Care Provider] - Additional Instructions: Follow-up with primary care. Return to the ED for any worsening symptoms. - Billing Disposition and Condition Condition: STABLE Disposition: Home
[2019-01-07 03:05] LABS: Urine Appearance Clear; Urine Bilirubin Negative (Negative); Urine Blood Negative (Negative); Urine Color Straw; Urine Glucose Negative (Negative); Urine Ketones Negative (Negative); Urine Nitrite Negative (Negative); Urine Protein Negative (Negative); Urine Urobilinogen Negative (Negative)
[2019-01-07 03:33] VITALS: BP 123/76
== END 2019-01-07 02:52 | disposition home or self-care (01) ==
LOC: ED 23:21
DX: M62.838 Other muscle spasm (principal); R06.02 Shortness of breath; R51 Headache; M54.5 Low back pain; R35.0 Frequency of micturition; M79.605 Pain in left leg; M79.604 Pain in right leg; M79.89 Other specified soft tissue disorders; Z88.8 Allergy status to other drugs, medicaments and biological substances; Z88.1 Allergy status to other antibiotic agents
CPT/HCPCS: 36415; 71046; 80053; 81003; 83880; 84484; 85025; 93005; 99283; A9270-GY

== ENCOUNTER 2020-02-22 13:24 | Inpatient (IN) ==
[2020-02-22 16:57] LABS: ABS Basophils 0.1 10^3/ul (0-0.2); ABS Lymphocytes 1.4 10^3/ul (1.0-4.8); ABS Monocytes 0.4 10^3/ul (0-0.8); ABS Neutrophils 5.7 10^3/ul (1.5-7.7); Eosinophil % 0.5 %; Hematocrit 35 % (35-47); Lymphocyte % 18.4 %; Mean Corpuscular HGB Conc 34 g/dL (31-36); Mean Corpuscular Hemoglobin 29 pg (27-31); Mean Corpuscular Volume 84 fL (80-97); Mean Platelet Volume 6.8 fL (7.4-10.4); Platelet Count 357 10^3/uL (150-450); Red Blood Count 4.21 10^6 /uL (3.70-4.87); Red Cell Distribution Width 15 % (10-15); White Blood Count 7.6 10^3/uL (3.5-10.8)
[2020-02-22 17:17] LABS: Albumin 4.4 g/dL (3.2-5.2); Albumin/Globulin Ratio 1.5 (1-3); BUN/Creatinine Ratio 16.2 (8-20); C Reactive Protein 6.49 mg/L (<8.01); Calcium 10.1 mg/dL (8.6-10.3); EGFR African American 108.7 (>60); EGFR Non-African American 89.8 (>60); Potassium 3.9 mmol/L (3.5-5.0); Total Bilirubin 0.4 mg/dL (0.2-1.0); Total Protein 7.4 g/dL (6.4-8.9)
[2020-02-22] MEDS ORDERED: Iohexol 300 (CONTRAST) 10 ML SDV IV ONE (18:31)
[2020-02-22 19:08] LABS: Urine Appearance Cloudy; Urine Bilirubin Negative (Negative); Urine Blood 1+ (Negative); Urine Color Yellow; Urine Glucose Negative (Negative); Urine Ketones Negative (Negative); Urine Nitrite Negative (Negative); Urine Protein Negative (Negative); Urine Specific Gravity 1.006 (1.010-1.030); Urine Urobilinogen Negative (Negative)
[2020-02-22 19:22] LABS: Urine Bacteria 1+ (Absent); Urine Red Blood Cell Trace(0-2/hpf) (Absent); Urine Squamous Epithelial Cell Present (Absent); Urine White Blood Cell Trace(0-5/hpf) (Absent)
[2020-02-22] MEDS ORDERED: Ondansetron 4 mg VIAL 2 MG/ML 2 ml VIAL IV ONE (19:55)
[2020-02-22] MEDS ORDERED: NS 0.9% 1000 ml BAG 1,000 ML IV ONE (19:55)
[2020-02-22 22:31] LABS: Erythrocyte Sed Rate 30 mm/Hr (0-29)
[2020-02-22] MEDS ORDERED: Albuterol HFA INHALER 8 gm MDI INH PRN (23:08)
[2020-02-23] MEDS ORDERED: Albuterol 2.5mg/3 ml (0.083%) NEB.SOLN INH PRN (11:54)
[2020-02-23] MEDS ORDERED: Metoclopramide 5 MG/ML VIAL (10 mg) IV SLOW PU ONE (16:29)
[2020-02-23] MEDS ORDERED: GuaiFENesin DM 100 mg/10 mg in 5 ML UDC PO PRN (16:58)
[2020-02-23] MEDS ORDERED: Mometasone 220 MCG MDI INH SCH (18:00)
[2020-02-23] MEDS ORDERED: Gadoteridol (CONTRAST) 279.3 MG/ML 10 ML IV ONE (19:49)
[2020-02-23] MEDS ORDERED: Gadoteridol (CONTRAST) 279.3 MG/ML 10 ML IV SCH (20:00)
[2020-02-23] MEDS ORDERED: Enoxaparin 40 MG/0.4 ML SYR SUBCUT SCH (21:00)
[2020-02-24 12:04] VITALS: BP 115/71
== END 2020-02-24 13:45 | disposition home or self-care (01) | DRG 392 ==
LOC: ED 13:24 → MED 13:24
PROVIDERS: ADMIT Internal Medicine; ATTEND Internal Medicine